=== PATIENT | female | born 1960 | race Caucasian/White ===

== ENCOUNTER 2023-06-04 | Outpatient (REF) | payer OTHER, SELFPAY ==
--- NOTE | ~2023-06-04 | XR_ITS ---
EXAMINATION: XR KNEE, LEFT CLINICAL INFORMATION: Pain. COMPARISON: None available. TECHNIQUE: Frontal, lateral and axial views of the left knee are submitted. FINDINGS: Bony alignment and mineralization are normal. The lateral and medial joint space compartment are well-maintained and show peripheral osteophyte formation. There is irregularity of the articular surface of the medial femoral condyle. The patellofemoral compartment shows mild narrowing with articular surface irregularity and peripheral osteophyte formation. There is no fracture, dislocation or joint effusion. No foreign body is seen. A nonspecific soft tissue calcifications seen in the posterior mid calf. XR/XR knee LT 3V IMPRESSION: There is tricompartment osteoarthritic change of the left knee. This is most pronounced of the medial and patellofemoral compartments, where it is mild to moderate.
== END 2023-06-04 00:01 ==
LOC: HO.HOSX
PROVIDERS: Visit Provider Orthopaedic Surgery
DX: M17.12 Unilateral primary osteoarthritis, left knee (principal); Z79.899 Other long term (current) drug therapy
CPT/HCPCS: 73562

== ENCOUNTER 2023-06-04 15:32 | Outpatient (AMB) | payer OTHER, SELFPAY ==
--- NOTE | 2023-06-04 15:39 | A.OFFVIS_ITS ---
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 The patient does have a history of rheumatoid arthritis. She describes her pain as sharp and severe in nature, 10/10. Her pain has gotten worse over the last few years in spite of continued non operative treatments. She has tried Tylenol and anti-inflammatory medicines which gave her minimal relief. She has done physical therapy for 12 weeks over the last 6 months which aggravated her pain. She has also had multiple injections. The most recent injection gave her minimal relief. Patient has dif ficulty walking even short distances because of her pain. At this point her left knee pain is interfering with her activities of daily living and her ability to sleep well through the night. Allergies codeine Allergy (Verified 06/04/23 15:45) vomitting, hives Sulfa (Sulfonamide Antibiotics) Allergy (Verified 06/04/23 15:45) vomitting, hives Medication List - Last Reconciled 06/05/23 by Stuart Johnson MD clonazepam 0.5 mg PO DAILY PRN escitalopram oxalate 20 mg PO DAILY folic acid 2 mg PO DAILY hydroxychloroquine 200 mg PO DAILY infliximab (Remicade) IV .every 2 months methotrexate sodium 10 mg PO PFSH Surgical History (Updated 06/04/23 @ 15:48 by KASI Robertson) History of toe surgery Social History (Updated 06/04/23 @ 15:49 by KASI Robertson) Patient Tobacco Use Status: Former Tobacco user Current occupation: Teacher Physical Exam Vital Signs: BMI result Body Mass Index 43.0 Const Other: Well-nourished well-developed very friendly female awake alert and oriented x3 in no acute distress Lungs clear to auscultation bilaterally with symmetric expansion Cardiovascular exam regular rate and rhythm Abdominal exam is soft nontender nondistended Extrem Other: Bilateral lower extremity examination shows good capillary refill, no skin lesions noted, normal sensation light touch Left knee examination shows a minimal effusion, palpable crepitus with range of motion, pain with range of motion, range of motion from -3 degrees to 115 degrees, no instability Results Reviewed Results Reviewed: X-rays of the patient's left knee show severe joint space narrowing with grade 4 crpl-[id number] arthritis, subchondral sclerosis, osteophyte formation, no acute bony abnormalities Assessment & Plan Assessment & Plan (1) Arthritis of left knee: Code(s): M17.12 - Unilateral primary osteoarthritis, left knee Plan: Ms. Rodriguez presents with progressively worsening left knee pain due to end- stage degenerative joint disease as well as rheumatoid arthritis. I had a lengthy discussion with the patient regarding the treatment options. At this point she has failed continued non operative treatments. The risks and benefits of left total knee replacement surgery were discussed at length with the patient. We had a discussion regarding implant in bearing options. We had a detailed discussion of the advantages and limitations of the specific implant designs, materials and bearing surfaces. All questions were answered to the patient's satisfaction. The patient wishes to proceed with surgery. Because the patient's symptoms are severe and intractable we will schedule surgery for as soon as possible. Coronavirus precautions will be taken. The patient will follow-up as instructed. Feel free to call me at any time should questions regarding her orthopedic management arise. Thank you very much for asking me to see this very friendly patient. I spent 22 minutes in reviewing the patient's records and imaging studies, seeing the patient and documenting in the medical record. Orders: Orders XR knee LT 3V 06/04/23 M25.562 - Pain in left knee Coding Level of Care Code New Pt Level 2 (68346) Diagnoses Arthritis of left knee M17.12
[2023-06-04 15:49] VITALS: BMI 43.0
== END 2023-06-04 16:27 | disposition home or self-care (01) ==
PROVIDERS: Visit Provider Orthopaedic Surgery
DX: M17.12 Unilateral primary osteoarthritis, left knee (principal)
CPT/HCPCS: 99202

== ENCOUNTER 2023-09-24 08:18 | Outpatient (AMB) | payer OTHER, SELFPAY ==
--- NOTE | 2023-09-24 08:22 | MHC.OFFVIS ---
Intake Intake Visit Reasons: Preop LT TKA 09/28/23 Intake Note: Genevieve a 62 year old female who presents today with complaints of progressively worsening left knee pain. The patient does have a history of rheumatoid arthritis. She describes her pain as sharp and severe in nature, 10/10. Her pain has gotten worse over the last few years in spite of continued non operative treatments. She has tried Tylenol and anti-inflammatory medicines which gave her minimal relief. She has done physical therapy for 12 weeks over the last 6 months which aggravated her pain. She has also had multiple injections. The most recent injection gave her minimal relief. Patient has difficulty walking even short distances because of her pain. At this point her left knee pain is interfering with her activities of daily living and her ability to sleep well through the night. Allergies apple Allergy (Verified 09/24/23 08:23) Rash codeine Allergy (Verified 09/24/23 08:23) vomitting, hives kiwi Allergy (Verified 09/24/23 08:23) Rash oxycodone Allergy (Verified 09/24/23 08:23) Vomiting Sulfa (Sulfonamide Antibiotics) Allergy (Verified 09/24/23 08:23) vomitting, hives Medication List - Last Reconciled 09/24/23 by Stuart Johnson MD clonazepam 0.5 mg PO DAILY PRN escitalopram oxalate 20 mg PO BEDTIME folic acid 2 mg PO BEDTIME hydroxychloroquine 200 mg PO BEDTIME methotrexate sodium 20 mg PO QWEEK PFSH Medical History Arthritis Back pain Hx of migraines Numbness Left bundle branch block Severe obesity Rheumatoid arthritis Hyperlipidemia Anxiety Surgical History Hx of toe surgery H/O laparoscopic adjustable gastric banding Hx of excision of dermoid cyst Hx of cholecystectomy Hx of section H/O colonoscopy History of toe surgery Social History (Updated 09/24/23 @ 08:24 by Mary Baez MA) Are you a primary critical care transport nurse to a significant other at home: No Do you presently have visiting nurse or other home services: No Alcohol intake: current Alcohol intake frequency: holidays/special occasions only Patient Tobacco Use Status: Former Tobacco user Current occupation: Teacher Physical Exam Const Other: Well-nourished well-developed very friendly female awake alert and oriented x3 in no acute distress Lungs - clear to auscultation bilaterally with symmetric expansion Cardiovascular exam - regular rate and rhythm Abdominal exam - soft nontender nondistended Extrem Other: Bilateral lower extremity examination shows good capillary refill, no skin lesions noted, normal sensation light touch Left knee examination shows a minimal effusion, palpable crepitus with range of motion, pain with range of motion, range of motion from -3 degrees to 115 degrees, no instability Results Reviewed Results Reviewed: X-rays of the patient's left knee show end-stage degenerative joint disease with grade 4 hohx-jq-tcsq arthritis, subchondral sclerosis, osteophyte formation, no acute bony abnormalities Assessment & Plan Assessment & Plan (1) Arthritis of left knee: Code(s): M17.12 - Unilateral primary osteoarthritis, left knee Plan Ms. Arauz presents with progressively worsening left knee pain due to end-stage degenerative joint disease. I had a lengthy discussion with the patient regarding the treatment options. At this point she has failed continued non operative treatments. The risks and benefits of left total knee replacement surgery were discussed at length with the patient. The patient wishes to proceed with surgery. patient financial services manager will be consulted following her surgery for home physical therapy and nursing. The patient will follow-up as instructed. Feel free to call me at any time should questions regarding her orthopedic management arise. I spent 22 minutes in reviewing the patient's records and imaging studies, seeing the patient and documenting in the medical record. Coding Level of Care Code Est Pt Level 2 (98316) Diagnoses Arthritis of left knee M17.12
== END 2023-09-24 08:32 | disposition home or self-care (01) ==
PROVIDERS: Visit Provider Orthopaedic Surgery
DX: M17.12 Unilateral primary osteoarthritis, left knee (principal)
CPT/HCPCS: 99212

== ENCOUNTER → 2023-09-24 08:18 | Outpatient (BNVA) | payer OTHER, SELFPAY | PROVIDERS: Visit Provider Orthopaedic Surgery ==

== ENCOUNTER 2023-09-28 06:20 | Inpatient (IN) | payer OTHER, SELFPAY ==
[2023-09-21 12:39] VITALS: BP 142/80; PULSE 71; RESP 20; O2SAT 96; BMI 43.2
--- NOTE | 2023-09-21 13:01 | HO.ANESPROP2 ---
Documented by User: Aissatou Lawrence NP 09/21/23 13:17 HPI - Anesthesia Eval Consult details Narrative: 63yo F for Left Knee Replacement Total No recent illness No CP/SOB within limits of pain. Able to do stairs carrying laundry Medically optimized by [facility] preop clinic Remicade for RA. Last dose 06/2023. No methotraxate for weeks. Sensitive to narcotics (N/V) PMFSH Active Problems Active Problems: All Active Problems (Updated 09/21/23 @ 12:26 by Angie Carpenter RN) Arthritis of left knee (Acute) Left knee pain (Acute) Past Medical History Medical History Arthritis Back pain Hx of migraines Numbness Left bundle branch block Severe obesity Rheumatoid arthritis Hyperlipidemia Anxiety Family History Family history of problems with anesthesia: No Surgical History Surgical History Hx of toe surgery H/O laparoscopic adjustable gastric banding Hx of excision of dermoid cyst Hx of cholecystectomy Hx of section H/O colonoscopy History of toe surgery History of Problems with Anesthesia: No Social History Social History (Updated 09/24/23 @ 08:24 by Mary Baez MA) Are you a primary healthcare advisory services manager to a significant other at home: No Do you presently have visiting nurse or other home services: No Alcohol intake: current Alcohol intake frequency: holidays/special occasions only Patient Tobacco Use Status: Former Tobacco user Use of substances other than those prescribed or required for medical reasons: Yes Substance Use Type Other:: vape Substance Use Frequency: Daily Have you been hit, kicked, punched, or otherwise hurt by someone within the past year? If so, by whom?: No Advance Directives: No Advance Directives Information Provided: No Advance Directives on File: No Recently lost weight without trying: No How much weight loss: 2-13 pounds Eating poorly because of decreased appetite: No Nutrition screen score: 1 Nutrition Risks: No Nutritional Risk Patient : No : No Poor oral hygiene: Yes (one crown on the bottom) Current occupation: Teacher Meds Allergies Allergy/AdvReac Type Severity Reaction Status Date / Time apple Allergy Rash Verified 09/24/23 08:23 codeine Allergy vomitting, Verified 09/24/23 08:23 hives kiwi Allergy Rash Verified 09/24/23 08:23 oxycodone Allergy Vomiting Verified 09/24/23 08:23 Sulfa (Sulfonamide Allergy vomitting, Verified 09/24/23 08:23 Antibiotics) hives Home Medications Medication Instructions Recorded Confirmed Last Taken Type clonazepam 0.5 mg tablet 0.5 mg PO DAILY PRN Anxiety 06/04/23 09/28/23 Unknown History escitalopram oxalate 20 mg tablet 20 mg PO BEDTIME 06/04/23 09/24/23 09/27/23 History folic acid 1 mg tablet 2 mg PO BEDTIME 06/04/23 09/24/23 09/27/23 History hydroxychloroquine 200 mg tablet 200 mg PO BEDTIME 06/04/23 09/24/23 09/27/23 History methotrexate sodium 2.5 mg tablet 20 mg PO QWEEK 06/04/23 09/24/23 Unknown History Exam Height,Weight and Vital Signs: Height 5 ft 2 in Weight 107.048 kg Last Vital Signs Pulse 71 09/21/23 12:39 Resp 20 09/21/23 12:39 BP 142/80 H 09/21/23 12:39 Pulse Ox 96 09/21/23 12:39 O2 Del Method Room Air 09/21/23 12:39 Pertinent Lab Results Pertinent Lab Results: CBC, BMP, and INR 08/2023 from outside facility all WNL Narrative Narrative: EKG 08/2023 NSR @ 61 LBBB (chronic) Airway Mallampati Class: II TM Dist: >3cm Neck ROM: Full Loose/Missing/Broken Teeth: Yes (Molar pulled. Kaser x 1) Heart: RRR Lungs: CTAB Assessment and Plan Assessment Anesthesia Assessment: Anesthesia Plan Discussed and PAT Visit Final Anesthetic Review Family History of Problems with Anesthesia: No History of Problems with Anesthesia: No Documented by User: Bruno Parada MD 09/28/23 08:09 [facility] Past Medical History Medical History Arthritis Back pain Hx of migraines Numbness Left bundle branch block Severe obesity Rheumatoid arthritis Hyperlipidemia Anxiety Surgical History Surgical History Hx of toe surgery H/O laparoscopic adjustable gastric banding Hx of excision of dermoid cyst Hx of cholecystectomy Hx of section H/O colonoscopy History of toe surgery Social History Social History (Updated 09/24/23 @ 08:24 by Mary Baez MA) Are you a primary healthcare advisory services manager to a significant other at home: No Do you presently have visiting nurse or other home services: No Alcohol intake: current Alcohol intake frequency: holidays/special occasions only Patient Tobacco Use Status: Former Tobacco user Use of substances other than those prescribed or required for medical reasons: Yes Substance Use Type Other:: vape Substance Use Frequency: Daily Have you been hit, kicked, punched, or otherwise hurt by someone within the past year? If so, by whom?: No Advance Directives: No Advance Directives Information Provided: No Advance Directives on File: No Recently lost weight without trying: No How much weight loss: 2-13 pounds Eating poorly because of decreased appetite: No Nutrition screen score: 1 Nutrition Risks: No Nutritional Risk Patient : No : No Poor oral hygiene: Yes (one crown on the bottom) Current occupation: Teacher Meds Allergies Allergy/AdvReac Type Severity Reaction Status Date / Time apple Allergy Rash Verified 09/24/23 08:23 codeine Allergy vomitting, Verified 09/24/23 08:23 hives kiwi Allergy Rash Verified 09/24/23 08:23 oxycodone Allergy Vomiting Verified 09/24/23 08:23 Sulfa (Sulfonamide Allergy vomitting, Verified 09/24/23 08:23 Antibiotics) hives Home Medications Medication Instructions Recorded Confirmed Last Taken Type clonazepam 0.5 mg tablet 0.5 mg PO DAILY PRN Anxiety 06/04/23 09/28/23 Unknown History escitalopram oxalate 20 mg tablet 20 mg PO BEDTIME 06/04/23 09/24/23 09/27/23 History folic acid 1 mg tablet 2 mg PO BEDTIME 06/04/23 09/24/23 09/27/23 History hydroxychloroquine 200 mg tablet 200 mg PO BEDTIME 08/24/23 12/14/23 12/17/23 History methotrexate sodium 2.5 mg tablet 20 mg PO QWEEK 06/04/23 09/24/23 Unknown History Assessment and Plan Final Anesthetic Review NPO: Yes ASA Class: III Final Preanesthetic Review: No Changes in Pt Med Stat, Meds/Allgs Chart Reviewed, Consent Obtained/Reviewed and Anes Risks/Benef Reviewed Patient Risk: Intermediate Procedure Risk: Intermediate Anesthetic Plan Anesthetic Plan: Spinal, Regional Block and Agree w/ Assess. and Plan Disposition: Standard PACU
[2023-09-21 16:14] LABS: MRSA Nasal PCR NEGATIVE (Negative); SA Nasal PCR NEGATIVE (Negative)
[2023-09-28] VITALS (11 sets, daily range): BP systolic 102–148; BP diastolic 59–79; PULSE 58–93; RESP 14–18; TEMP 36.1–36.5; O2SAT 93–99; BMI 43.3; BMI 44.6
--- OUTSIDE RECORDS SUMMARY | 2023-09-28 06:24 | XMS_ITS | Continuity of Care Document ---
Author Name Unknown Organization [facility] Address [address] [place] [address]- Care Team Providers Care Track Maintainer Name Role Phone Fam Tolbert MD Primary Care Physician [phone] Encounter [facility] Date(s): 08/05/23 - 09/04/23 [facility] [address] [place], [place] [address] Allergies, Adverse Reactions, Alerts Substance Reaction Severity Status codeine HIVES, ITCHY, VOMITING Activ e sulfa drugs HIVES Active Apples Active Kiwi Active Immunizations Given and Recorded Vaccine Date Status Refusal Reason tetanus/diphtheria/pertussis, acel(Tdap) 1 06/24/23 Given influenza virus vaccine, inactivated 06/18/23 Willy rded influenza virus vaccine, inactivated 06/24/22 Willy rded influenza virus vaccine, inactivated 07/03/21 Willy rded influenza virus vaccine, inactivated 06/26/20 Willy rded SARS-CoV-2 mRNA ([id number]) vax 11/06/21 Recorded SARS-CoV-2 (COVID-19) mRNA BNT-162b2 vac 05/28/21 Recorded SARS-CoV-2 (COVID-19) mRNA BNT-162b2 vac 01/14/21 Recorded SARS-CoV-2 (COVID-19) mRNA BNT-162b2 vac 12/24/20 Recorded 1Result Comment: [facility] [id number] Medications clonazePAM 0.5 mg oral tablet 1 tablet = 0.5 mg, By Mouth, 3 times a day, PRN Anxiety, # 30 tablet, 0 Refills, Maintenance, 06/24/23 15:09:00 EDT, Tablet, [id number], Partial fill upon patient request if the prescription is for a schedule II opioid drug., 163, cm,... Start Date: 06/24/23 Status: Ordered EpiPen 2-Hemal = 0.3 mg, Intramuscular, Once, 0 Refills, Maintenance, 12/15/22 7:49:00 EST, Partial fill upon patient request if the prescription is for a schedule II opioid drug. Start Date: 12/15/22 Status: Ordered folic acid 1 mg oral tablet TAKE 2 TABLETS BY MOUTH DAILY Start Date: 06/24/23 Status: Ordered hydroxychloroquine 200 mg oral tablet TAKE 1 TABLET BY MOUTH ONCE A DAY Start Date: 06/24/23 Status: Ordered Lexapro 20 mg oral tablet 1 tablet = 20 mg, By Mouth, Daily, # 90 tablet, 0 Refills, Maintenance, 08/25/23 16:26:00 EST, Tablet, [facility] #[id number], Partial fill upon patient request if the prescription is for a schedule II opioid drug., 163, cm, 08/06/23 11:57:00 EDT... Start Date: 08/25/23 Status: Ordered methotrexate 7.5 mg/0.15 mL subcutaneous solution Subcutaneous Infusion, 0 Refills, Maintenance, 12/19/19 16:16:00 EDT Start Date: 12/19/19 Status: Ordered REMACAID INFUSION REMACAID INFUSION, Refills 0, Maintenance, 12/19/19 16:16:00 EDT, Supply Start Date: 12/19/19 Status: Ordered Problem List Condition Confirmation Course Effective Dates Status Health St atus Informant Anxiety Confirmed Active Family history of colonic polyps; [facility]; 11/30 colo 5 year recall Confirmed Active Hyperlipidemia; atorvastatin caused leg cramps Confirmed Active Rheumatoid arthritis - [facility] Confirmed Active Severe obesity (BMI 35.0-39.9) with comorbidity Confirmed Active Social History Social History Type Response Smoking Status Former smoker, quit more than 30 days ago; Other: Quit 2007, was 1.5 ppd, started as teenager; entered on: 12/15/22 Sex Patient Care team information Care Team Personnel Name: Fam Tolbert MD Position: [facility] Physician - Primary Care Member Role: PCP Address: Address: [address] [place] [id number] Name: Alessia Broussard RN Position: [facility] SN RN Member Role: Primary Care Nurse Care Team Related Persons Name: KIMBER DAVIS Address: home [address] [place] [id number]
--- OUTSIDE RECORDS SUMMARY | 2023-09-28 06:24 | XMS_ITS | Continuity of Care Document ---
Author Name Unknown Organization [facility] Address [address] [place] [id number]- Care Team Providers Care Floater Operator Name Role Phone Xi PONCE, Corey Lang Primary Care Physician [place] [facility] [facility] [place] - 10/23/[address] [address]- Attending Physician: Emery PONCE, Leopoldo Admitting Physician: Emery PONCE, Leopoldo Referring Physician: Emery PONCE, Leopoldo Allergies, Adverse Reactions, Alerts Substance Reaction Severity Status codeine HIVES, ITCHY, VOMITING Activ e sulfa drugs HIVES Active Medications clonazePAM 0.5 mg oral tablet 1 tablet = 0.5 mg, By Mouth, 3 times a day, 0 Refills, Maintenance, 12/19/19 16:17:00 EDT Start Date: 12/19/19 Status: Ordered Lexapro 10 mg oral tablet 1 tablet = 10 mg, By Mouth, Daily, # 30 tablet, 0 Refills, Maintenance, Tablet Start Date: 08/23/12 Status: Ordered meloxicam 10 mg oral capsule 1 capsule = 10 mg, By Mouth, Daily, # 30 capsule, 0 Refills, Maintenance, 12/19/19 16:15:00 EDT, Capsule Start Date: 12/19/19 Status: Ordered methotrexate 7.5 mg/0.15 mL subcutaneous solution Subcutaneous Infusion, 0 Refills, Maintenance, 12/19/19 16:16:00 EDT Start Date: 12/19/19 Status: Ordered REMACAID INFUSION REMACAID INFUSION, Refills 0, Maintenance, 12/19/19 16:16:00 EDT, Supply Start Date: 12/19/19 Status: Ordered Social History Social History Type Response Smoking Status Former smoker, quit more than 30 days ago entered on: 12/19/19 Sex
--- OUTSIDE RECORDS SUMMARY | 2023-09-28 06:24 | XMS_ITS | Continuity of Care Document ---
Author Name Unknown Organization [facility] Address [address] [place] [address]- Care Team Providers Care Medical Typist Name Role Phone Fam Tolbert MD Primary Care Physician [id number] Date(s): 12/15/22 - 12/22/22 [facility] [address] [place], [place] [address] Attending Physician: Fam Tolbert MD Allergies, Adverse Reactions, Alerts Substance Reaction Severity Status codeine HIVES, ITCHY, VOMITING Activ e sulfa drugs HIVES Active Apples Active Kiwi Active Medications clonazePAM 0.5 mg oral tablet 1 tablet = 0.5 mg, By Mouth, 3 times a day, PRN Anxiety, 0 Refills, Maintenance, 12/19/19 16:17:00 EDT Start Date: 12/19/19 Status: Ordered EpiPen 2-Hemal = 0.3 mg, Intramuscular, Once, 0 Refills, Maintenance, 12/15/22 7:49:00 EST, Partial fill upon patient request if the prescription is for a schedule II opioid drug. Start Date: 12/15/22 Status: Ordered Lexapro 10 mg oral tablet 1 tablet = 10 mg, By Mouth, Daily, # 30 tablet, 0 Refills, Maintenance, Tablet Start Date: 08/23/12 Status: Ordered methotrexate 7.5 mg/0.15 mL subcutaneous solution Subcutaneous Infusion, 0 Refills, Maintenance, 12/19/19 16:16:00 EDT Start Date: 12/19/19 Status: Ordered REMACAID INFUSION REMACAID INFUSION, Refills 0, Maintenance, 12/19/19 16:16:00 EDT, Supply Start Date: 12/19/19 Status: Ordered Problem List Condition Confirmation Course Effective Dates Status Health St atus Informant Anxiety Confirmed Active Hyperlipidemia; atorvastatin caused leg cramps Confirmed Active Rheumatoid arthritis - [facility] Confirmed Active Procedures Procedure Date Related Diagnosis Body Site Status Cholecystectomy Completed CS - section Com pleted Excision of cyst from leg Completed Laparoscopic adjustable gastric banding Completed Vital Signs Most recent to oldest [Reference Range]: 1 Height 163 cm (12/15/22 7:49 AM) Social History Social History Type Response Smoking Status Former smoker, quit more than 30 days ago; Other: Quit 2007, was 1.5 ppd, started as teenager; entered on: 12/15/22 Sex Patient Care team information Care Team Personnel Name: Fam Tolbert MD Position: [facility] Primary Care Physician Member Role: PCP Address: Address: [address] [place] [id number]- Care Team Related Persons Name: KIMBER DAVIS Address: home [address] [place] [id number]
--- OUTSIDE RECORDS SUMMARY | 2023-09-28 06:24 | XMS_ITS | Continuity of Care Document ---
Author Name Unknown Organization [facility] Address [address] [place] [id number]- Care Team Providers Care First Assistant Manager Name Role Phone Xi PONCE, Corey Lang Primary Care Physician [place] [facility] [place] - 06/02/[address] [address]- [facility] Attending Physician: Delfin Machado MD Admitting Physician: Delfin Machado MD Referring Physician: Mekhi Pepper MD Allergies, Adverse Reactions, Alerts Substance Reaction [...]
--- OUTSIDE RECORDS SUMMARY | 2023-09-28 06:24 | XMS_ITS | Continuity of Care Document ---
Author Name Unknown Organization [facility] Address [address] [place] [address]- Care Team Providers Care Cylinder Head Assembler Name Role Phone Tomasz PONCE, Fam Primary Care Physician Encounter [facility] Date(s): 08/12/23 - 09/11/23 [facility] [address] [place], [place] [address] Allergies, Adverse Reactions, Alerts [...] vaccine, inactivated 06/26/20 Willy rded SARS-CoV-2 mRNA (ycsgzau-dvqx-hfbod) vax 11/06/21 Recorded SARS-CoV-2 (COVID-19) mRNA BNT-162b2 vac 05/28/21 Recorded SARS-CoV-2 (COVID-19) mRNA BNT-162b2 vac 01/14/21 Recorded SARS-CoV-2 (COVID-19) mRNA BNT-162b2 vac 12/24/20 Recorded 1Result Comment: [facility] [id number] Medications clonazePAM 0.5 mg oral tablet 1 tablet = 0.5 mg, By Mouth, 3 times a day, PRN Anxiety, # 30 tablet, 0 Refills, Maintenance, 06/24/23 15:09:00 EDT, Tablet, [facility] #[id number], Partial fill upon patient request if the [...] 0 Refills, Maintenance, 08/25/23 16:26:00 EST, Tablet, [facility] #[id number], Partial fill upon patient request if the prescription is for a schedule II opioid drug., 163, cm, 08/06/23 11:57:00 EDT... Start Date: 08/25/23 Status: Ordered methotrexate 2.5 mg oral tablet TAKE 4 TABLETS BY MOUTH IN THE MORNING AND 4 TABLETS BY MOUTH IN THE EVENING ONCE WEEKLY Start Date: 09/07/23 Status: Ordered REMACAID INFUSION REMACAID INFUSION, Refills 0, Maintenance, 12/19/19 16:16:00 EDT, Supply Start Date: 12/19/19 Status: Ordered Problem List Condition Confirmation Course Effective Dates Status Health St atus Informant Anxiety Confirmed Active Family history of colonic polyps; [facility]; 11/30 colo 5 year recall Confirmed Active Hyperlipidemia; atorvastatin caused leg cramps Confirmed Active Rheumatoid [facility] - [facility] Confirmed Active Severe obesity Confirmed Active Social History Social History Type Response Smoking Status Former smoker, quit more than 30 days ago; Other: Quit 2007, was 1.5 ppd, started as teenager; entered on: 12/15/22 Sex Patient Care team information Care Team Personnel Name: Fam Tolbert MD Position: [facility] Physician - Primary Care Member Role: PCP Address: Address: [address] [place] [address]- Name: Alessia Broussard RN Position: [facility] SN RN Member Role: Primary Care Nurse Care Team Related Persons Name: KIMBER DAVIS Address: home [address] [place] [address]
--- OUTSIDE RECORDS SUMMARY | 2023-09-28 06:24 | XMS_ITS | Continuity of Care Document ---
Author Name Unknown Organization [facility] Address [address] [place] [address]- Care Team Providers Care Orientation And Mobility Instructor Name Role Phone Fam Tolbert MD Primary Care Physician [phone] [place] [facility] [place](s): 08/06/23 - 08/13/23 [facility] [address] [place], [place] [address] Attending Physician: Steve Alfaro MD Allergies, Adverse Reactions, Alerts Substance Reaction Severity Status codeine HIVES, ITCHY, VOMITING Activ e Kiwi Active Apples Active sulfa drugs HIVES Active Immunizations Given and Recorded Vaccine Date Status Refusal Reason tetanus/diphtheria/pertussis, acel(Tdap) 1 06/24/23 Given influenza virus vaccine, inactivated 06/18/23 Willy rded influenza virus vaccine, inactivated 06/24/22 Willy rded influenza virus vaccine, inactivated 07/03/21 Willy rded influenza virus vaccine, inactivated 06/26/20 Willy rded SARS-CoV-2 mRNA ([id number]-cczm-vrntz) vax 11/06/21 Recorded SARS-CoV-2 (COVID-19) mRNA BNT-162b2 vac 05/28/21 Recorded SARS-CoV-2 (COVID-19) mRNA BNT-162b2 vac 01/14/21 Recorded SARS-CoV-2 (COVID-19) mRNA BNT-162b2 vac 12/24/20 Recorded 1Result Comment: [facility] [id number] Medications clonazePAM 0.5 mg oral tablet 1 tablet = 0.5 mg, By Mouth, 3 times a day, PRN Anxiety, # 30 tablet, 0 Refills, Maintenance, 06/24/23 15:09:00 EDT, Tablet, [facility] #[id number], Partial fill upon patient request if the [...] mg, By Mouth, Daily, # 90 tablet, 1 Refills, Maintenance, 04/23/23 22:11:00 EDT, Tablet, [facility] #[id number], Partial fill upon patient request if the prescription is for a schedule II opioid drug., 163, cm, 12/15/22 7:49:00 EST,... Start Date: 04/23/23 Status: Ordered methotrexate 7.5 mg/0.15 mL subcutaneous [...] obesity (BMI 35.0-39.9) with comorbidity Confirmed Active Vital Signs Most recent to oldest [Reference Range]: 1 Height 163 cm (08/06/23 11:57 AM) Oxygen Saturation [94-100 %] 93 % *L* (08/06/23 11:57 AM) Pulse Rate [55-90 bpm] 76 bpm (08/06/23 11:57 AM) Blood Pressure [90-138/55-84 mm Hg] 128/ 87mm Hg (08/06/23 11:57 AM) Temperature [96.8-100.4 DegF] 99.2 DegF (08/06/23 11:57 AM) Mode of Delivery (Oxygen) Room air (08/06/23 11:57 AM) Blood pressure sites Arm, left (08/06/23 11:57 AM) Temperature Route Temporal (08/06/23 11:57 AM) Weight Obtained Via Standing scale (08/06/23 11:57 AM) Social History Social History Type Response Smoking Status Former smoker, quit more than 30 days ago; Other: Quit 2007, was 1.5 ppd, started as teenager; entered on: 12/15/22 Sex Note * Angelina Bonds: PERFORM, SIGN, VERIFY Event Display: Patient Education/Instruction Authored Date: [id number] [facility] *[facility] Clinical Summary Name BRENDON DAVIS Age 62 Years 1960 PCP Tomasz PONCE, Fam PCP Visit Date 08/06/2023 11:40:00 Additional Instructions: Scheduled Appointments?? Future Appointments ?No Future Appointments Scheduled Follow-Up Instructions ?? Diagnosis Acute upper respiratory infection, unspecified Medications: Please continue your medications until treatment is completed or stopped by your provider. Discuss any questions related to medications with your provider. Medications to Continue with No Changes These medications were not printed or sent to your pharmacy Clonazepam (clonazePAM 0.5 mg oral tablet) 1 tab(s) Oral 3 times a day as needed Anxiety. Refills: 0. Next Dose: EPINEPHrine (EpiPen 2-Hemal) 0.3 Milligram Intramuscular once. Next Dose: Escitalopram (Lexapro 20 mg oral tablet) 1 tab(s) Oral Daily. Refills: 1. Next Dose: Folic Acid (folic acid 1 mg oral tablet) TAKE 2 TABLETS BY MOUTH DAILY. Next Dose: Hydroxychloroquine (hydroxychloroquine 200 mg oral tablet) TAKE 1 TABLET BY MOUTH ONCE A DAY. Next Dose: Methotrexate (methotrexate 7.5 mg/0.15 mL subcutaneous solution) Subcutaneous Infusion. Next Dose: Miscellaneous Rx (REMACAID INFUSION) Next Dose: Allergy Info:?? Kiwi; Apples; sulfa drugs; codeine Medications Given This Visit Future Orders ?No future orders Vital Signs Height 163 cm Weight BMI Blood Pressure 128 mm Hg/87 mm Hg Temperature 99.2 DegF Pulse Rate 76 bpm Respiratory Rate 02 Sat Mode of Delivery 93 %/Room air You can now view a summary of your hospital visit from the comfort of your home through a free online portal called [employer] (formerly [employer]). [employer] (formerly [employer]) is a website that allows you to securely view your medical information including discharge summary, medications and follow-up visits. ??You can alsosend a secure electronic message to your doctor???s office to request appointments, renew medications or just ask a question. You can enroll at [email or web address] or register during your next office visit. Disclaimer:?? The information provided is of a general nature and is intended to be used in conjunction with the recommendations and advice of your health care practitioner. ??Every effort has been made to ensure that the information provided is accurate and complete at the time it is provided to you however, as your needs change, or, as new ??information becomes available, different or additional instructions may be required. If you have questions, please consult with your primary care provider or pharmacist, as appropriate. ??This information is not intended to serve as substitution for assessment and evaluation by a qualified health care provider. If you do not have a primary care provider, you may find a [facility] provider by calling [facility] Link at [phone]. [facility], in keeping with [facility] guidance, no longer requires face masks for staff, patientsor visitors in most situations. Similar to time spent indoors at other locations, there is the chance that you were exposed to respiratory viruses during your time with us (such as flu or COVID-19).? If you develop symptoms concerning for a viral respiratory infection, please seek testing (and treatment if indicated) from your medical provider or home test kit. For information about the plan of care including goals and instructions for your diagnosis, please see the patient education orders section of this document. Patient Education Materials?? The content of this educational material or handout may have been modified, supplemented, or adapted from its original content and format to support your individualized medical care. Additional Provider Instructions: please get PNEUMO 20 vaccine w hen you are feeling better and ask AUTOMATION QTP TESTER about SHINGRIX Patient Care team information Care Team Personnel Name: Fam Tolbert MD Position: [facility] Physician - Primary Care Member Role: PCP Address: Address: [address] [place] [address]- Name: Alessia Broussard RN Position: [facility] SN RN Member Role: Primary Care Nurse Care Team Related Persons Name: KIMBER DAVIS Address: home [address] [place] [address]
--- OUTSIDE RECORDS SUMMARY | 2023-09-28 06:24 | XMS_ITS | Continuity of Care Document ---
Author Name Unknown Organization [facility] Address [address] [place] [address]- Care Team Providers Care Conditioning Room Worker Name Role Phone Fam Tolbert MD Primary Care Physician [place] [facility] Date(s): 08/06/23 - 09/05/23 [facility] [address] [place], [place] [address] Attending Physician: Admtr, Giovanna Admitting Physician: Admtr, [id number] Referring Physician: Admtr, Ar8 Allergies, Adverse Reactions, Alerts Substance Reaction Severity Status codeine HIVES, ITCHY, VOMITING Activ e Apples Active Kiwi Active sulfa drugs HIVES Active Immunizations Given and Recorded Vaccine Date Status Refusal Reason tetanus/diphtheria/pertussis, acel(Tdap) 1 06/24/23 Given influenza virus vaccine, inactivated 06/18/23 Willy rded influenza virus vaccine, inactivated 06/24/22 Willy rded influenza virus vaccine, inactivated 07/03/21 Willy rded influenza virus vaccine, inactivated 06/26/20 Willy rded SARS-CoV-2 mRNA (kviczed-jxey-yzdko) vax 11/06/21 Recorded SARS-CoV-2 (COVID-19) mRNA BNT-162b2 vac 05/28/21 Recorded SARS-CoV-2 (COVID-19) mRNA BNT-162b2 vac 01/14/21 Recorded SARS-CoV-2 (COVID-19) mRNA BNT-162b2 vac 12/24/20 Recorded 1Result Comment: [facility] [id number] Medications clonazePAM 0.5 mg oral tablet 1 tablet = 0.5 mg, By Mouth, 3 times a day, PRN Anxiety, # 30 tablet, 0 Refills, Maintenance, 06/24/23 15:09:00 EDT, Tablet, [facility] #[id number], Partial fill upon patient request if the [...] 0 Refills, Maintenance, 08/25/23 16:26:00 EST, Tablet, [facility] #[id number], Partial fill upon patient request if the [...] Team Personnel Name: Fam Tolbert MD Position: S Physician - Primary Care Member Role: PCP Address: Address: [address] [place] [address]- Name: Bobo POLANCO, Alessia Position: [facility] SN RN Member Role: Primary Care Nurse Care Team Related Persons Name: KIMBER DAVIS Address: home [address] [place] [address]
--- OUTSIDE RECORDS SUMMARY | 2023-09-28 06:24 | XMS_ITS | Continuity of Care Document ---
Author Name Unknown Organization [facility] Address [address] [place] [address]- Care Team Providers Care House Calls Nurse Name Role Phone Corey Layne MD Primary Care Physician Encounter [facility] Date(s): 09/19/22 - 10/19/22 [facility] [address] [place], [place] [address] Allergies, Adverse Reactions, Alerts [...] 30 days ago entered on: 12/19/19 Sex Patient Care team information Care Team Personnel Name: Corey Layne MD Position: [facility] Outreach Member Role: PCP Address: Address: [address] [place] [address] MD Xi, [place] [address]- Name: Alessia Broussard RN Position: [facility] RN Member Role: Primary Care Nurse Care Team Related Persons Name: KIMBER DAVIS Address: home [address] [place] [address]
--- OUTSIDE RECORDS SUMMARY | 2023-09-28 06:24 | XMS_ITS | Continuity of Care Document ---
Author Name Unknown Organization [facility] Address [address] [place] [address] ve [address] [place] [address]- Care Team Providers Care Shoe Sewing Machine Operator And Tender Name Role Phone Xi PONCE, Corey Lang Primary Care Physician Encounter [facility] Date(s): 12/19/19 - 12/29/[address] [place] [address]- [facility] Attending Physician: Giovanna Gonzalez Admitting Physician: Giovanna Gonzalez Referring Physician: AdmGiovanna wong Allergies, Adverse Reactions, Alerts Substance Reaction Severity [...]
--- OUTSIDE RECORDS SUMMARY | 2023-09-28 06:24 | XMS_ITS | Continuity of Care Document ---
Author Name Unknown Organization [facility] Address [address] [place] [address]- Care Team Providers Care Professional Programmer Analyst Name Role Phone Tomasz PONCE, Fam Primary Care Physician Encounter [facility] Date(s): 09/07/23 - 09/14/23 [facility] [address] [place] [id number] Attending Physician: Daniel Mcgee MD Referring Physician: Stuart Johnson MD Allergies, Adverse Reactions, Alerts Substance Reaction [...] vaccine, inactivated 06/26/20 Willy rded SARS-CoV-2 mRNA (dooqfsc-gxnw-yudzg) vax 11/06/21 Recorded SARS-CoV-2 (COVID-19) mRNA BNT-162b2 vac 05/28/21 Recorded SARS-CoV-2 (COVID-19) mRNA BNT-162b2 vac 01/14/21 Recorded SARS-CoV-2 (COVID-19) mRNA BNT-162b2 vac 12/24/20 Recorded 1Result Comment: [facility] [id number] Medications clonazePAM 0.5 mg oral tablet 1 tablet = 0.5 mg, By Mouth, 3 times a day, PRN Anxiety, # 30 tablet, 0 Refills, Maintenance, 06/24/23 15:09:00 EDT, Tablet, [facility] #[id number], Partial fill upon patient request if the [...] 0 Refills, Maintenance, 08/25/23 16:26:00 EST, Tablet[id number], Partial fill upon patient request if the [...] Center Confirmed Active Severe obesity Confirmed Active Vital Signs Most recent to oldest [Reference Range]: 1 Height 163 cm (09/07/23 3:08 PM) Weight 106.9 kg (09/07/23 3:08 PM) Oxygen Saturation [94-100 %] 98 % (09/07/23 3:08 PM) Pulse Rate [55-90 bpm] 70 bpm (09/07/23 3:08 PM) Body Mass Index [18.5-24.99 kg/m2] 40.23 kg/m2 *>HHI* (09/07/23 3:08 PM) Blood Pressure [90-138/55-84 mm Hg] 134/ 84mm Hg (09/07/23 3:08 PM) Respiratory Rate [16-30 br/min] 16 br/mi n (09/07/23 3:08 PM) Mode of Delivery (Oxygen) Room air (09/07/23 3:08 PM) Blood pressure sites Arm, right (09/07/23 3:08 PM) Weight Obtained Via Standing scale (09/07/23 3:08 PM) Social History Social History Type Response Smoking Status Former smoker, quit more than 30 days ago; Other: Quit 2007, was 1.5 ppd, started as teenager; entered on: 12/15/22 Sex EKG study * Event Display: ECG 12-Lead Authored Date: Please click on pdf link to open report * Event Display: ECG 12-Lead Authored Date: Ventricular Rate: 61 BPM Atrial Rate: 61 BPM P-R Interval: 148 ms QRS Duration: 132 ms Q-T Interval: 482 ms QTC Calculation(Bazett): 485 ms P [place]: 35 degrees R [place]: -12 degrees T [place]: 63 degrees Normal sinus rhythm Left bundle branch block Abnormal ECG No previous ECGs available Confirmed by RIGOBERTO BRAVO MD ([id number]) on 09/08/2023 9:01:02 AM [place]: RIGOBERTO BRAVO MD Patient Care team information Care Team Personnel Name: Fam Tolbert MD Position: [facility] Physician - Primary Care Member Role: PCP Address: Address: [address] [place] [id number] Name: Alessia Broussard RN Position: [facility] SN RN Member Role: Primary Care Nurse Care Team Related Persons Name: KIMBER DAVIS Address: home [address] [place] [address]
--- OUTSIDE RECORDS SUMMARY | 2023-09-28 06:24 | XMS_ITS | Continuity of Care Document ---
Author Name Unknown Organization [facility] Address [address] [place] [address]- Care Team Providers Care Golf Tournament Consultant Name Role Phone Fam Tolbert MD Primary Care Physician [phone] [facility] Date(s): 02/04/23 - 06/04/23 [facility] [address] [place], [place] [address] Attending Physician: Fam Tolbert MD Allergies, Adverse Reactions, Alerts Substance Reaction Severity Status codeine HIVES, ITCHY, VOMITING Activ e sulfa drugs HIVES Active Kiwi Active Apples Active Medications clonazePAM 0.5 mg oral tablet [...] drug. Start Date: 12/15/22 Status: Ordered Lexapro 20 mg oral tablet 1 tablet = 20 mg, By Mouth, Daily, # 90 tablet, 1 Refills, Maintenance, 04/23/23 22:11:00 EDT, Tablet, [facility] #[id number], Partial fill upon patient request if the [...] arthritis - [facility] Confirmed Active Social History Social History Type Response Smoking Status Former smoker, quit more than 30 days ago; Other: Quit 2007, was 1.5 ppd, started as teenager; entered on: 12/15/22 Sex Patient Care team information Care Team Personnel Name: Fam Tolbert MD Position: [facility] Physician - Primary Care Member Role: PCP Address: Address: [address] [place] [address]- Name: Alessia Broussard RN Position: [facility] SN RN Member Role: Primary Care Nurse Care Team Related Persons Name: KIMBER DAVIS Address: [address] [place] [address]
--- OUTSIDE RECORDS SUMMARY | 2023-09-28 06:24 | XMS_ITS | Continuity of Care Document ---
Author Name Unknown Organization [facility] Address [address] [place] [address]- Care Team Providers Care Wire Inspector Name Role Phone Fam Tolbert MD Primary Care Physician [phone] [place] [facility] [place]23 [place] 08/29/23 [facility] [address] [place], [place] [address] Allergies, Adverse Reactions, Alerts Substance Reaction Severity Status codeine HIVES, ITCHY, VOMITING Activ e Kiwi Active sulfa drugs HIVES Active Apples Active Immunizations Given and Recorded Vaccine Date Status Refusal Reason tetanus/diphtheria/pertussis, acel(Tdap) 1 06/24/23 Given influenza virus vaccine, inactivated 06/18/23 Willy rded influenza virus vaccine, inactivated 06/24/22 Willy rded influenza virus vaccine, inactivated 07/03/21 Willy rded influenza virus vaccine, inactivated 06/26/20 Willy rded SARS-CoV-2 mRNA (mlzeonj-mton-mjjxi) vax 11/06/21 Recorded SARS-CoV-2 (COVID-19) mRNA BNT-162b2 vac 05/28/21 Recorded SARS-CoV-2 (COVID-19) mRNA BNT-162b2 vac 01/14/21 Recorded SARS-CoV-2 (COVID-19) mRNA BNT-162b2 vac 12/24/20 Recorded 1Result Comment: [facility] [id number] Medications clonazePAM 0.5 mg oral tablet 1 tablet = 0.5 mg, By Mouth, 3 times a day, PRN Anxiety, # 30 tablet, 0 Refills, Maintenance, 06/24/23 15:09:00 EDT, Tablet, [facility] #[id number], Partial fill upon patient request if the [...] 0 Refills, Maintenance, 08/25/23 16:26:00 EST, Tablet, [facility] #[id number], Partial fill upon patient request if the [...] Team Personnel Name: Fam Tolbert MD Position: [facility] Physician - Primary Care Member Role: PCP Address: Address: [address] [place] [id number] Name: Alessia Broussard RN Position: [facility] SN RN Member Role: Primary Care Nurse Care Team Related Persons Name: KIMBER DAVIS Address: home [address] [place] [id number]
--- OUTSIDE RECORDS SUMMARY | 2023-09-28 06:24 | XMS_ITS | Continuity of Care Document ---
Author Name Unknown Organization [facility] Address [address] [place] [address]- Care Team Providers Care Transmission Mechanic Name Role Phone Fam Tolbert MD Primary Care Physician Encounter [facility] Date(s): 08/07/23 - 09/06/23 [facility] [address] [place], [place] [address] Allergies, Adverse Reactions, Alerts Substance Reaction [...] vaccine, inactivated 06/26/20 Willy rded SARS-CoV-2 mRNA (iovwprv-gggz-fejgn) vax 11/06/21 Recorded SARS-CoV-2 (COVID-19) mRNA BNT-162b2 vac 05/28/21 Recorded SARS-CoV-2 (COVID-19) mRNA BNT-162b2 vac 01/14/21 Recorded SARS-CoV-2 (COVID-19) mRNA BNT-162b2 vac 12/24/20 Recorded 1Result Comment: [facility] [id number] Medications clonazePAM 0.5 mg oral tablet 1 tablet = 0.5 mg, By Mouth, 3 times a day, PRN Anxiety, # 30 tablet, 0 Refills, Maintenance, 06/24/23 15:09:00 EDT, Tablet, [email or web address] #[id number], Partial fill upon patient request if the [...] 0 Refills, Maintenance, 08/25/23 16:26:00 EST, Tablet, [email or web address] #[id number], Partial fill upon patient request if the [...] Team Personnel Name: Fam Tolbert MD Position: [facility] Physician - Primary Care Member Role: PCP Address: Address: [address] [place] [address] Name: Alessia Broussard RN Position: [facility] SN RN Member Role: Primary Care Nurse Care Team Related Persons Name: KIMBER DAVIS Address: home [address] [place] [address]
--- OUTSIDE RECORDS SUMMARY | 2023-09-28 06:24 | XMS_ITS | Continuity of Care Document ---
Author Name Unknown Organization [facility] Address [address] [place] [address]- Care Team Providers Care Oil Refiner Name Role Phone Fam Tolbert MD Primary Care Physician [place] [facility] [place] 06/24/23 - 07/01/23 [facility] [address] [place], [place] [address] Encounter Diagnosis Chronic knee pain(Discharge Diagnosis) - 06/24/23 Family history of colonic polyps; [facility]; 11/30 colo 5 year recall (Discharge Diagnosis) - 06/24/23 Hyperlipidemia; atorvastatin caused leg cramps(Discharge Diagnosis) - 06/24/23 Anxiety(Discharge Diagnosis) - 06/24/23 Severe obesity (BMI 35.0-39.9) with comorbidity(Discharge Diagnosis) - 06/27/23 Attending Physician: Fam Tolbert MD Allergies, Adverse [...] vaccine, inactivated 06/26/20 Willy rded SARS-CoV-2 mRNA ([id number]-sjqn-xtibp) vax 11/06/21 Recorded SARS-CoV-2 (COVID-19) mRNA BNT-162b2 vac 05/28/21 Recorded SARS-CoV-2 (COVID-19) mRNA BNT-162b2 vac 01/14/21 Recorded SARS-CoV-2 (COVID-19) mRNA BNT-162b2 vac 12/24/20 Recorded 1Result Comment: [facility] [id number] Medications clonazePAM 0.5 mg oral tablet 1 tablet = 0.5 mg, By Mouth, 3 times a day, PRN Anxiety, # 30 tablet, 0 Refills, Maintenance, 06/24/23 15:09:00 EDT, Tablet, [facility] #[id number], Partial fill upon patient request if the [...] 1 Refills, Maintenance, 04/23/23 22:11:00 EDT, Tablet, [facility] #[id number], Partial fill upon patient request if the [...] obesity (BMI 35.0-39.9) with comorbidity Confirmed Active Diagnosis Diagnosis Type Effective Dates Health Status Clinical Service Informant Chronic knee pain Discharge Diagnosis 06/24/23 Family history of colonic polyps; [facility]; 11/30 colo 5 year recall Discharge Diagnosis 06/24/23 Hyperlipidemia; atorvastatin caused leg cramps Discharge Diagnosis 06/24/23 Anxiety Discharge Diagnosis 06/24/23 Severe obesity (BMI 35.0-39.9) with comorbidity Discharge Diagnosis 06/27/23 Vital Signs Most recent to oldest [Reference Range]: 1 2 Height 163 cm (06/24/23 3:20 PM) 163 cm (06/24/23 2:58 PM) Weight 105.6 kg (06/24/23 2:58 PM) Oxygen Saturation [94-100 %] 100 % (06/24/23 2:58 PM) Pulse Rate [55-90 bpm] 61 bpm (06/24/23 2:58 PM) Body Mass Index [18.5-24.99 kg/m2] 39.75 kg/m2 *>HHI* (06/24/23 2:58 PM) Blood Pressure [90-138/55-84 mm Hg] 122/ 86mm Hg (06/24/23 3:20 PM) 125/87mm Hg (06/24/23 2:58 PM) Blood pressure sites Arm, right (06/24/23 2:58 PM) Social History Social History Type Response Smoking Status Former smoker, quit more than 30 days ago; Other: Quit 2007, was 1.5 ppd, started as teenager; entered on: 12/15/22 Sex Note * June Obando: PERFORM, SIGN, VERIFY Event Display: Patient Education/Instruction Authored Date: [id number] [facility] *No Edge Adult Ped Clinical Summary Name BRENDON DAVIS Age 62 Years 1960 PCP Tomasz PONCE, Fam PCP Visit Date 06/24/2023 14:48:00 Additional Instructions: Scheduled Appointments?? Future Appointments ?No Future Appointments Scheduled Follow-Up Instructions ?? Diagnosis Pain in unspecified knee; Hyperlipidemia, unspecified; Family history of colonic polyps; Anxiety disorder, unspecified Medications: Please continue your medications until treatment is completed or stopped by your provider. Discuss any questions related to medications with your provider. Medications to Continue Taking That Have Changed [id number], [address], [place] [id number], [phone] - Clonazepam (clonazePAM 0.5 mg oral tablet) 1 tab(s) Oral 3 times a day as needed Anxiety. Refills: 0. Next Dose: Medications to Continue with No Changes These medications were not printed or sent to your pharmacy EPINEPHrine (EpiPen 2-Hemal) 0.3 Milligram Intramuscular once. [...] orders Vital Signs Height 163 cm Weight 105.6 kg BMI 39.75 kg/m2 Blood Pressure 122 mm Hg/86 mm Hg Temperature Pulse Rate 61 bpm Respiratory Rate 02 Sat Mode of Delivery 100 %/ You can now view a summary of your hospital visit from the comfort of your home through a free online portal called Rumgr. Rumgr is a website that allows you to securely view your medical information including discharge summary, medications and follow-up visits. ??You can alsosend a secure electronic message to your doctor???s office to request appointments, renew medications or just ask a question. You can enroll at [email or web address] or register during your next office visit. [...] primary care provider, you may find a [facility] provider by calling [facility] Link at [phone]. [facility], in keeping with [facility] guidance, no longer requires face masks [...] format to support your individualized medical care. * June Obando: PERFORM, SIGN, VERIFY Event Display: Patient Education/Instruction Authored Date: [id number] [facility] *No Edge Adult Ped Clinical Summary Name BRENDON DAVIS Age 62 Years 1960 PCP Tomasz PONCE, Fam PCP Visit Date 06/24/2023 14:48:00 Additional Instructions: Scheduled Appointments?? Future Appointments ?No Future Appointments Scheduled Follow-Up Instructions ?? Diagnosis Pain in unspecified knee; Hyperlipidemia, unspecified; Family history of colonic polyps; Anxiety disorder, unspecified Medications: Please continue your medications until treatment is completed or stopped by your provider. Discuss any questions related to medications with your provider. Medications to Continue Taking That Have Changed [facility] #[id number], [address] [place] [id number], [phone] - Clonazepam (clonazePAM 0.5 mg oral tablet) 1 tab(s) Oral 3 times a day as needed Anxiety. Refills: 0. Next Dose: Medications to Continue with No Changes These medications were not printed or sent to your pharmacy EPINEPHrine (EpiPen 2-Hemal) 0.3 Milligram Intramuscular once. [...] orders Vital Signs Height 163 cm Weight 105.6 kg BMI 39.75 kg/m2 Blood Pressure 122 mm Hg/86 mm Hg Temperature Pulse Rate 61 bpm Respiratory Rate 02 Sat Mode of Delivery 100 %/ You can now view a summary of your hospital visit from the comfort of your home through a free online portal called Rumgr. Rumgr is a website that allows you to securely view your medical information including discharge summary, medications and follow-up visits. ??You can alsosend a secure electronic message to your doctor???s office to request appointments, renew medications or just ask a question. You can enroll at [email or web address] or register during your next office visit. [...] primary care provider, you may find a [facility] provider by calling [facility] Link at [phone]. [facility], in keeping with [facility] guidance, no longer requires face masks [...] format to support your individualized medical care. Patient Care team information Care Team Personnel Name: Fam Tolbert MD Position: [facility] Physician - Primary Care Member Role: PCP Address: Address: [address] [place] [id number] Name: Alessia Broussard RN Position: [facility] SN RN Member Role: Primary Care Nurse Care Team Related Persons Name: KIMBER DAVIS Address: home [address] [place] [address]
--- OUTSIDE RECORDS SUMMARY | 2023-09-28 06:24 | XMS_ITS | Continuity of Care Document ---
Author Name Unknown Organization [facility] Address [address] [place] [address] [address] [place] [address]- Care Team Providers Care Striper Name Role Phone Xi PONCE, Corey Lang Primary Care Physician Encounter [facility] [place] Date(s): 03/06/20 - 04/05/[address] [place] [address]- [facility] Attending Physician: Giovanna Gonzalez Admitting Physician: Giovanna [...]
--- OUTSIDE RECORDS SUMMARY | 2023-09-28 06:24 | XMS_ITS | Continuity of Care Document ---
Author Name Unknown Organization [facility] Address [address] [place] [address]- Care Team Providers Care Diesel Crane Operator Name Role Phone Fam Tolbert MD Primary Care Physician Encounter [facility] [place] Date(s): 07/27/23 - 08/26/23 [facility] [address] [place], [place] [address] Allergies, Adverse Reactions, Alerts [...] vaccine, inactivated 06/26/20 Willy rded SARS-CoV-2 mRNA ([id number]-[id number]) vax 11/06/21 Recorded SARS-CoV-2 (COVID-19) mRNA BNT-162b2 vac 05/28/21 Recorded SARS-CoV-2 (COVID-19) mRNA BNT-162b2 vac 01/14/21 Recorded SARS-CoV-2 (COVID-19) mRNA BNT-162b2 vac 12/24/20 Recorded 1Result Comment: [facility] [id number] Medications clonazePAM 0.5 mg oral tablet 1 tablet = 0.5 mg, By Mouth, 3 times a day, PRN Anxiety, # 30 tablet, 0 Refills, Maintenance, 06/24/23 15:09:00 EDT, Tablet, [email or web address] #[id number], Partial fill upon patient request if the [...] 0 Refills, Maintenance, 08/25/23 16:26:00 EST, Tablet, [email or web address] #[id number], Partial fill upon patient request if the [...] Team Personnel Name: Fam Tolbert MD Position: [facility] Physician - Primary Care Member Role: PCP Address: Address: [address] [place] [id number] Name: Alessia Broussard RN Position: [facility] SN RN Member Role: Primary Care Nurse Care Team Related Persons Name: KIMBER DAVIS Address: home [address] [place] [address]
--- OUTSIDE RECORDS SUMMARY | 2023-09-28 06:24 | XMS_ITS | Continuity of Care Document ---
Author Name Unknown Organization [facility] ter Address [address] [place] [address]- Care Team Providers Care Caisson Worker Name Role Phone Xi PONCE, Corey Lang Primary Care Physician [place] [facility] [place] - 04/05/[address] [address] [facility] Attending Physician: Evelyn Almaraz MD Admitting Physician: Evelyn Almaraz MD Referring Physician: Mekhi Pepper MD Allergies, [...]
--- OUTSIDE RECORDS SUMMARY | 2023-09-28 06:24 | XMS_ITS | Continuity of Care Document ---
Author Name Unknown Organization [facility] ter Address [address] [place] [address]- Care Team Providers Care Segmental Wall Installer Name Role Phone Xi PONCE, Corey Lang Primary Care Physician Encounter [facility] [place] Date(s): 08/21/21 - 12/18/[address] [address] Attending Physician: Emery PONCE, Leopoldo Admitting Physician: [...]
--- OUTSIDE RECORDS SUMMARY | 2023-09-28 06:24 | XMS_ITS | Continuity of Care Document ---
Author Name Unknown Organization [facility] Address [address] [place] [address]- Care Team Providers Care Recreation Engineer Name Role Phone Fam Tolbert MD Primary Care Physician [phone] Encounter [facility] [place] Date(s): 04/23/23 - 05/23/23 [facility] [address] [place], [place] [address] Allergies, Adverse Reactions, Alerts [...] 1 Refills, Maintenance, 04/23/23 22:11:00 EDT, Tablet, [facility] #[id number], Partial fill upon patient request if the [...] Team Personnel Name: Fam Tolbert MD Position: [facility] Physician - Primary Care Member Role: PCP Address: Address: [address] [place] [address]- Care Team Related Persons Name: KIMBER DAVIS Address: home [address] [place] [address]
--- OUTSIDE RECORDS SUMMARY | 2023-09-28 06:24 | XMS_ITS | Continuity of Care Document ---
Author Name Unknown Organization [facility] Address [address] [place] [address] ve [address] [place] [address]- Care Team Providers Care Chairman & Ceo Name Role Phone Corey Layne MD Primary Care Physician [place] [facility] [place] 12/19/19 - 12/26/[address] [place] [address]- [facility] Attending Physician: Mekhi Pepper MD Referring Physician: Corey Layne MD Allergies, Adverse Reactions, Alerts Substance Reaction [...] EDT, Supply Start Date: 12/19/19 Status: Ordered Vital Signs Most recent to oldest [Reference Range]: 1 Height 163 cm (12/19/19 4:09 PM) Weight 110.0 kg (12/19/19 4:09 PM) Pulse Rate [55-90 bpm] 94 bpm *H* (12/19/19 4:09 PM) Body Mass Index [18.5-24.99] 41.4 *>HHI* (12/19/19 4:09 PM) Blood Pressure [90-138/55-84 mm Hg] 134/ 80mm Hg (12/19/19 4:09 PM) Respiratory Rate [16-30 br/min] 20 br/mi n (12/19/19 4:09 PM) Temperature [96.8-100.4 DegF] 98.3 DegF (12/19/19 4:09 PM) Blood pressure sites Arm, left (12/19/19 4:09 PM) Temperature Route Temporal (12/19/19 4:09 PM) Weight Obtained Via Standing scale (12/19/19 4:09 PM) Social History Social History Type Response Smoking Status Former smoker, quit more than 30 days ago entered on: 12/19/19 Sex
--- OUTSIDE RECORDS SUMMARY | 2023-09-28 06:24 | XMS_ITS | Continuity of Care Document ---
Author Name Unknown Organization [facility] Address [address] [place] [address]- Care Team Providers Care Adjunct Writing Instructor Name Role Phone Fam Tolbert MD Primary Care Physician Encounter [facility] [place] Date(s): 08/25/23 - 09/24/23 [facility] [address] [place], [place] [address] Allergies, Adverse Reactions, Alerts Substance Reaction Severity [...] vaccine, inactivated 06/26/20 Willy rded SARS-CoV-2 mRNA (gphxkta-pbjj-ufsiz) vax 11/06/21 Recorded SARS-CoV-2 (COVID-19) mRNA BNT-162b2 vac 05/28/21 Recorded SARS-CoV-2 (COVID-19) mRNA BNT-162b2 vac 01/14/21 Recorded SARS-CoV-2 (COVID-19) mRNA BNT-162b2 vac 12/24/20 Recorded 1Result Comment: [facility] [id number] Medications clonazePAM 0.5 mg oral tablet 1 tablet = 0.5 mg, By Mouth, 3 times a day, PRN Anxiety, # 30 tablet, 0 Refills, Maintenance, 06/24/23 15:09:00 EDT, Tablet, [facility] #[id number], Partial fill upon patient request if the [...] 0 Refills, Maintenance, 08/25/23 16:26:00 EST, Tablet, [facility] #[id number], Partial fill upon patient request if the [...] Team Personnel Name: Fam Tolbert MD Position: [facility] Physician - Primary Care Member Role: PCP Address: Address: [address] [place] [address]- [place] Name: Alessia Broussard RN Position: [facility] SN RN Member Role: Primary Care Nurse Care Team Related Persons Name: KIMBER DAVIS Address: home [address] [place] [address]
[2023-09-28] MEDS: Lactated Ringers 1,000 ML 100 ML IVCONT ×2 (06:56→12:25)
[2023-09-28] MEDS: vancomycin HCL 1,000 MG in 0.9 % Sodium Chloride 250 ML 270 MG IV (07:15)
--- NOTE | 2023-09-28 08:06 | PHA.MEDREC ---
Pharmacy Consult ? Medication Reconciliation Pharmacy has completed the medication reconciliation. Reviewed med rec done by nursing
--- NOTE | 2023-09-28 10:38 | P.BOP_ITS ---
Brief Operative Note Date of Service: 09/28/23 Pre-op diagnosis: Left knee degenerative joint disease Post-op diagnosis: same Procedure: Left total knee arthroplasty Implants: Liang Triathlon cemented posterior stabilized total knee arthroplasty with a femoral component size 4 left, universal tibial component size 4, polyethylene liner size 4 with 9 mm of thickness, a tibial stem measuring 12 mm in diameter by 50 mm in length, a symmetric patellar component size 29 with 8 mm of thickness Surgeon: Stuart Johnson MD Anesthesia: regional and spinal Was an Customs House Broker used for this Procedure?: No Estimated blood loss (mL): 200 Pathology: other (Bony fragments from the left femur, tibia and patella) Condition: stable Disposition: PACU
--- NOTE | 2023-09-28 10:39 | P.OP_ITS ---
Operative Note Operative Note Date of Service: 09/28/23 Narrative: After the patient was identified as Genevieve Arauz and her left knee was initialed by myself the patient was brought to the holding area where a left leg nerve block was performed by the anesthesiologist in routine fashion. The patient was then brought to the operating room where conscious sedation and spinal anesthesia were performed by the anesthesiologist in routine fashion. Because of the patient's rheumatoid arthritis and obesity she was given both IV Ancef and IV vancomycin preoperatively for infection prophylaxis. The patient's left lower extremity was prepped and draped in sterile fashion. A formal time- out was completed. The patient's left knee was placed onto a small bump to produce 30? of knee flexion during exposure. A #10 scalpel blade was used to make a midline incision extending 1 handbreadth proximal and distal to the patella. A second #10 scalpel blade was used to dissect the subcutaneous tissues down to the extensor mechanism. The subcutaneous flaps were maintained as thick as possible. A medial parapatellar arthrotomy was then performed using a #10 scalpel blade. The arthrotomy was begun just medial to the patellar tendon. The arthrotomy was continued 1 cm medial to the patella and then 5 mm into the medial aspect of the quadriceps tendon. The infrapatellar fat pad was partially excised to help with exposure. The soft tissue retinaculum was raised one-half of the way around the medial aspect of the proximal tibia. The patella was everted and the knee was flexed to 90?. There was no injury to the patellar tendon or its insertion onto the tibial tubercle. A drill bit was introduced into the distal aspect of the femur with a starting point 1 cm anterior to the origin of the posterior cruciate ligament. The intramedullary alignment everett was put into place. The distal alignment guide was set for a 5 degree valgus cut. The distal cutting block was put into place and was held with 4 pins. The intramedullary alignment everett was removed. Soft tissues were retracted in the distal femoral cut was made using a sagittal saw. The distal aspect of the femur measured to be a size 4 left component. Two drill holes were placed into the distal aspect of the femur marking 3? of external rotation. The distal cutting block was impacted into place and was held with 2 pins. Soft tissues were retracted and the 4 distal femoral cuts were made using a sagittal saw. Final notching and drilling of the distal aspect of the femur were performed in routine fashion. The trial femoral component was impacted into place. The knee was taken through a full range of motion. The patella tracked well. The patella was everted and the knee was flexed to 90?. The trial component was removed and our attention was directed to the proximal tibia. The medial and lateral menisci were removed using a #10 scalpel blade. A small rim of the medial meniscus was left intact to help prevent injury to the medial collateral ligament. A drill bit was then introduced into the proximal tibia with a starting point midway from medial to lateral and one-third of the way posteriorly. The intramedullary alignment everett was put into place. The proximal tibial cutting guide was placed over the alignment everett in line with the 2nd toe. The guide was held in place using 3 pins. The intramedullary alignment everett was removed. Soft tissues were retracted and the proximal tibial cut was made using a sagittal saw. Inspection of the proximal tibia showed a bony cyst measuring 10 mm x 5 mm x 5 mm along the lateral tibial plateau. Because of the presence of the cyst and the patient's obesity the decision was made to use a tibial stem to help prevent loosening of the tibial component in the future. The proximal tibia measured to be a size 4 component. The tibial tray was put into place with a 9 mm liner. The femoral component was impacted into place. The knee was taken through a full range of motion. There was full flexion and full extension. There was no instability with varus or valgus stress testing with the knee in flexion or extension. The patella tracked well with no medially directed force. The rotation of the tibial tray was marked using electrocautery with the knee in extension. The patella was everted and the knee was flexed to 90?. All trial components were removed. The tibial tray was placed onto the proximal tibia in line with the electrocautery crystal. The tray was held in place using 3 pins. Final broaching and drilling of the proximal tibia were performed in routine fashion. The trial liner and trial femoral component were put into place. The knee was brought into extension and our attention was directed to the patella. The patella measured 25 mm in thickness. The patellar resection guide was set for a 10 mm resection. Soft tissues were retracted and the patella cut was made using a sagittal saw. The remaining patella measured 15 mm in thickness. The undersurface of the patella was measured to be a size 29 symmetric component. Three drill holes were placed into the undersurface of the patella in routine fashion. The trial component was put into place. The knee was taken through a full range of motion. The patella tracked well. The patella was everted and the knee was flexed to 90?. All trial components were removed. The knee was once again brought into extension and placed onto a small bump. The knee joint was irrigated with copious amounts of normal saline solution via pulse lavage while the cement was mixed. The patella was everted and the knee was flexed to 90?. A small amount of cement was placed along the posterior aspects of the tibial and femoral components. Cement was then pressurized into the proximal tibia. The tibial component was impacted into place. Any excess cement was removed. The polyethylene liner was then impacted into place. Cement was then pressurized into the distal aspect of the femur. A small amount of cement was placed into the intramedullary canal to help reduce bleeding. The femoral component was impacted into place. Any excess cement was removed. The knee was then brought into extension. Cement was pressurized into the undersurface of the patella. The patellar component was put into place and was held with a patella clamp. Any excess cement was removed. Once the cement had hardened the patellar clamp was removed. The knee was taken through a full range of motion. There was full flexion and extension. There was no instability with varus or valgus stress testing with the knee in flexion or extension. The patella tracked well with no medially directed force. The knee joint was irrigated with copious amounts of normal saline solution via pulse lavage. Any significant bleeding vessels were coagulated. The patient's left knee was placed onto a small bump. The arthrotomy was closed with #2 Ethibond [id number]-[id number]-[id number] interrupted suture as well as #1 Vicryl [id number]-fv-zumdj interrupted suture. The wound was once again irrigated. The subcutaneous tissues were closed with 0 Vicryl and 2-0 Vicryl interrupted sutures. The skin was closed with skin guanakito. Dry sterile dressing and Mir bandages were placed over the patient's left knee. The patient was awake and alert. The patient was transferred to the recovery room in stable condition.
[2023-09-28] MEDS: HYDROmorphone HCl 0.5 MG/0.5 ML SYRINGE IVPUSH (12:29)
[2023-09-28] MEDS: methocarbamoL 750 MG TABLET PO ×2 (13:59→20:18)
--- NOTE | 2023-09-28 14:53 | PM.EVENT ---
Event Note Date of Service: 09/28/23 Event Note: Patient requires inpatient hospitalization for the following reasons: Morbid obesity Immunocompromised on RA medication ASA use Pain management Physical therapy Time Spent With Patient Time: Total time managing care of this patient today ____ minutes.
--- NOTE | 2023-09-28 15:21 | P.CONIM_ITS ---
History of Present Illness Data of Consult Service Date: 09/28/23 Requesting physician: Stuart Johnson Primary Care Provider: Fam Tolbert MD [facility] Reason for consult: medical management. 62 y/o F pmhx of RA with complaints of progressively worsening left knee pain.came with her pain as sharp and severe pain, Her pain has gotten worse over the last few years in spite of continued non operative treatments. She has tried Tylenol and anti-inflammatory medicines which gave her minimal relief. She has done physical therapy for 12 weeks over the last 6 months which aggravated her pain. She has also had multiple injections. The most recent injection gave her minimal relief. Patient has difficulty ambulating even short distances because of her pain. Denies any new complaint of chest pain or shortness of breath or abdominal pain or fever or chills or nausea or vomiting Denies any cough or weakness or numbness. no new labs knee xray-left knee OA. Review of Systems 2 Review of Systems: as above. Yes all other systems are reviewed and are negative [facility] Medical History Arthritis Back pain Hx of migraines Numbness Left bundle branch block Severe obesity Rheumatoid arthritis Hyperlipidemia Anxiety Surgical History Hx of toe surgery H/O laparoscopic adjustable gastric banding Hx of excision of dermoid cyst Hx of cholecystectomy Hx of section H/O colonoscopy History of toe surgery Social History Household Members: Spouse and Children Housing: House Are you a primary child care sitter to a significant other at home: No Do you presently have visiting nurse or other home services: No Alcohol intake: current Alcohol intake frequency: holidays/special occasions only Patient Tobacco Use Status: Former Tobacco user Smoked in Last 30 Days: No Patient Interested in Nicotine Replacement: No Patient Given Instructions on How to Stop Smoking: No Second Hand Smoke Exposure: No Use of substances other than those prescribed or required for medical reasons: Yes Substance Use Type: Marijuana Substance Use Type Other:: vape Substance Use Frequency: Daily Currently Displaying Signs/Symptoms of Drug Intoxication Withdrawal: No Any prior treatment program specific to substance use: No Have you been hit, kicked, punched, or otherwise hurt by someone within the past year? If so, by whom?: No Do you feel safe in your current relationship?: No Is there a partner from a previous relationship who is making you feel unsafe now?: No Are you made to feel afraid or neglected: No Advance Directives: No Advance Directives Information Provided: No Advance Directives on File: No Do you have thoughts of harming others: None Do you have a plan to hurt others: No Plan Recently lost weight without trying: No How much weight loss: 2-13 pounds Eating poorly because of decreased appetite: No Nutrition screen score: 1 Nutrition Risks: No Nutritional Risk Patient : No : No Poor oral hygiene: No service: No Current occupation: Teacher Meds Allergies Allergy/AdvReac Type Severity Reaction Status Date / Time apple Allergy Rash Verified 09/24/23 08:23 codeine Allergy vomitting, Verified 09/24/23 08:23 hives kiwi Allergy Rash Verified 09/24/23 08:23 oxycodone Allergy Vomiting Verified 09/24/23 08:23 Sulfa (Sulfonamide Allergy vomitting, Verified 09/24/23 08:23 Antibiotics) hives Active Medications: Current Medications Acetaminophen (Acetaminophen 325 Mg Tablet) 650 mg PO Q6H PRN PRN Reason: Pain, Mild (Pain Scale 1-3) Aspirin (Aspirin 325 Mg Tablet) 325 mg PO Q12H [facility] Clonazepam (Clonazepam 0.5 Mg Tablet) 0.5 mg PO DAILY PRN PRN Reason: Anxiety Docusate Sodium (Docusate Sodium 100 Mg Capsule) 100 mg PO BID [facility] Escitalopram Oxalate (Escitalopram Oxalate 20 Mg Tablet) 20 mg PO BEDTIME [facility] Folic Acid (Folic Acid 1 Mg Tablet) 2 mg PO BEDTIME [facility] Gabapentin (Gabapentin 100 Mg Capsule) 100 mg PO DAILY [facility] Hydromorphone HCl (Hydromorphone Hcl 4 Mg Tablet) 4 mg PO Q3H PRN PRN Reason: Pain, Moderate(Pain Scale 4-6) Hydromorphone HCl (Hydromorphone Hcl 2 Mg Tablet) 6 mg PO Q3H PRN PRN Reason: Pain, Severe (Pain Scale 7-10) Hydromorphone HCl (Hydromorphone Hcl 0.5 Mg/0.5 Ml Syringe) 0.25 mg IVPUSH Q4H PRN; Protocol PRN Reason: Pain, Severe (Pain Scale 7-10) Hydromorphone HCl (Hydromorphone Hcl 0.5 Mg/0.5 Ml Syringe) 0.5 mg IVPUSH Q4H PRN; Protocol PRN Reason: Pain, Severe (Pain Scale 7-10) Last Admin: 09/28/23 12:29 Dose: 0.5 mg Hydromorphone HCl (Hydromorphone Hcl 2 Mg Tablet) 2 mg PO Q3H PRN PRN Reason: Pain, Mild (Pain Scale 1-3) Hydroxychloroquine Sulfate (Hydroxychloroquine Sulfate 200 Mg Tablet) 200 mg PO BEDTIME [facility] Lactated Ringer's (Lr) 1,000 mls @ 100 mls/hr IVCONT .Q10H [facility] Last Admin: 09/28/23 12:25 Dose: 100 mls/hr Lactated Ringer's (Lr) 1,000 mls @ 100 mls/hr IVCONT .Q10H [facility] Last Admin: 09/28/23 12:30 Dose: Not Given Cefazolin Sodium/Dextrose (Ancef) 2 gm in 50 mls @ 100 mls/hr IV Q8H [facility] Stop: 09/29/23 15:59 Vancomycin HCl 1,500 mg/ (Sodium Chloride) 500 mls @ 333.333 mls/hr IV POSTOP ONE Stop: 09/28/23 20:44 Methocarbamol (Methocarbamol 750 Mg Tablet) 750 mg PO TID [facility] Last Admin: 09/28/23 13:59 Dose: 750 mg Methotrexate (Methotrexate Sodium 2.5 Mg Tablet) 20 mg PO Sa@0900 [facility] Ondansetron HCl (Ondansetron Hcl 4 Mg/2 Ml Vial) 4 mg IVPUSH Q8H PRN PRN Reason: Nausea and Vomiting Pharmacy Consult (Consult Rx Vancomycin Dosing) 1 each MISCELLANE DAILY PRN PRN Reason: Consult order Sodium Chloride (0.9 % Sodium Chloride Flush 3 Ml Syringe) 3 ml IVFLUSH QSHIFT [facility] Home Medications Medication Instructions Recorded Confirmed Last Taken Type clonazepam 0.5 mg tablet 0.5 mg PO DAILY PRN Anxiety 06/04/23 09/28/23 Unknown History escitalopram oxalate 20 mg tablet 20 mg PO BEDTIME 06/04/23 09/24/23 09/27/23 History folic acid 1 mg tablet 2 mg PO BEDTIME 06/04/23 09/24/23 09/27/23 History hydroxychloroquine 200 mg tablet 200 mg PO BEDTIME 06/04/23 09/24/23 09/27/23 History methotrexate sodium 2.5 mg tablet 20 mg PO SA 06/04/23 09/28/23 09/26/23 History Physical Exam 2 Vital Signs and Narrative: Vital Signs: Last Vital Signs Temp 96.9 F 09/28/23 15:09 Pulse 65 09/28/23 15:09 Resp 16 09/28/23 15:09 BP 136/70 09/28/23 15:09 Pulse Ox 93 09/28/23 15:09 O2 Del Method Room Air 09/28/23 15:09 BMI result Body Mass Index 44.6 Appearance: Alert.? Oriented X3.? ?. cvs: rrr, [id number] , no murmur res: clear to auscultation ,no rhonchii or wheezing abd: no rebound or guarding ,nt, bs present. ext pulses present , no cyanosis ,has left knee soarness. neuro: axo3 , nonfocal. Results Labs 09/29/23 05:36 09/29/23 05:36 Assessment and Plan (1) Arthritis of left knee: Status: Acute Plan 62 y/o F pmhx of RA with complaints of progressively worsening left knee pain.came with her pain as sharp and severe pain s/p Left total knee arthroplasty. Left knee arthritis:s/p Left total knee arthroplasty continue pain control Dilaudid, gabapentin, Tylenol. Bowel regimen-docusate,miralex incentive spirometry. RA:continue home meds anxiety -continue home meds dvt prophylax: on asa as per ortho. Gi prophylax: added omeprazole thanks for letting us participate in patient care ,will sign off .call us for any questions
[2023-09-28] MEDS: ceFAZolin Sodium/Dextrose,Iso 2 GM/50 ML PIGGYBACK IV ×2 (16:05→23:30)
[2023-09-28] MEDS: Aspirin 325 MG TABLET PO (18:00)
[2023-09-28] MEDS: Omeprazole 20 MG CAPSULE.DR PO (18:01)
[2023-09-28] MEDS: vancomycin HCL 1,500 MG in 0.9 % Sodium Chloride 500 ML 333.33 MG IV (18:32)
[2023-09-28] MEDS: Folic Acid 1 MG TABLET 2 MG PO (20:19)
[2023-09-28] MEDS: Escitalopram Oxalate 20 MG TABLET PO (20:19)
[2023-09-28] MEDS: Hydroxychloroquine Sulfate 200 MG TABLET PO (20:19)
[2023-09-28] MEDS: 0.9 % Sodium Chloride Flush 3 ML SYRINGE IVFLUSH (20:21)
[2023-09-28] MEDS: Acetaminophen 325 MG TABLET 650 MG PO (21:53)
[2023-09-28] MEDS: HYDROmorphone HCl 2 MG TABLET 6 MG PO (23:20)
[2023-09-29] VITALS (7 sets, daily range): BP systolic 109–126; BP diastolic 58–64; PULSE 58–76; RESP 16–20; TEMP 36.2–36.5; O2SAT 93–99
[2023-09-29] MEDS: Aspirin 325 MG TABLET PO ×2 (05:42→17:37)
[2023-09-29] MEDS: Omeprazole 20 MG CAPSULE.DR PO (05:42)
[2023-09-29] MEDS: HYDROmorphone HCl 2 MG TABLET 6 MG PO ×3 (05:42→21:42)
[2023-09-29 06:03] LABS: MANUAL DIFF FLAG NO
[2023-09-29 06:19] LABS: Anion Gap 11 (12-20); Blood Urea Nitrogen 13 mg/dL (9-16); Calcium 8.8 mg/dL (8.4-10.2); Carbon Dioxide 26 mmol/L (22-29); Chloride 108 mmol/L (96-108); Creatinine Clr Calc Pharmacy 84.4; Estimated Glomerular Filt Rate > 60; Glucose Fasting 101 mg/dL (60-99); Potassium 4.5 mmol/L (3.3-5.1); Sodium 140 mmol/L (135-145)
[2023-09-29 06:20] LABS: Basophils Percent Auto 0.1 % (0-2); Eosinophils Percent Auto 0.1 % (0-4); Hematocrit 33.1 % (37.0-47.0); Imm Gran Abs Auto 0.02 X10*3/uL (0.00-0.03); Imm Gran Pct Auto 0.3 % (0.0-0.4); Lymphocytes Absolute Auto 2.1 X10*3/uL (1.2-4.9); Lymphocytes Percent Auto 26.4 % (20-40); Mean Corpuscular HGB Conc 33.2 g/dl (31.0-35.0); Mean Corpuscular Hemoglobin 29.8 pg (27.0-33.0); Mean Corpuscular Volume 89.7 fL (80.0-98.0); Mean Platelet Volume 10.9 fL (9.4-12.3); Monocytes Absolute Auto 0.5 X10*3/uL (0.1-1.2); Monocytes Percent Auto 5.8 % (2-11); Neutrophils Absolute Auto 5.3 x10*3/uL (2.0-8.3); Neutrophils Percent Auto 67.3 % (45-73); Platelet Count 220 X10*3/uL (160-400); Red Blood Count 3.69 X10*6/uL (4.20-5.50); Red Cell Distribution Width 12.9 % (11.0-16.0); White Blood Count 7.9 X10*3/uL (4.8-10.8)
[2023-09-29] MEDS: ceFAZolin Sodium/Dextrose,Iso 2 GM/50 ML PIGGYBACK IV (08:50)
[2023-09-29] MEDS: Gabapentin 100 MG CAPSULE PO (08:50)
[2023-09-29] MEDS: Docusate Sodium 100 MG CAPSULE PO ×2 (08:51→21:42)
[2023-09-29] MEDS: methocarbamoL 750 MG TABLET PO ×3 (08:51→21:42)
[2023-09-29] MEDS: 0.9 % Sodium Chloride Flush 3 ML SYRINGE IVFLUSH ×2 (08:54→16:15)
--- NOTE | 2023-09-29 10:24 | MHC.CM.PN ---
Addendum entered by Bouchra Titus 09/29/23 11:43: [facility] has declined the patient for Acute Rehab. They stated that [facility] will not authorize the rehab stay. [facility] has declined the patient. They are not contracted with the insurance. [facility] in contracted with [facility]. They have accepted the case. [facility] has not yet responded to the referral. The patient and her spouse have been updated on the referral outcomes. Original Note: Female 63 S/P LTKA. She lives with her and dtr. At baseline she is independent with all functional mobility. ptients prefernce at discharge is Rehab. [facility] choice [facility] for [facility]. 1st choice for acute rehab is [facility]. Preference for Home care is [facility]. They do not accept [facility]. [facility] has been referred for home care. Patient will transport via BLS if to a facility. Her will transport if dispo is home. Patient has been informed that insurance authorization will be required for facility placement. CM will follow for discharge.
--- NOTE | 2023-09-29 13:30 | P.PNOP_ITS ---
Subjective Subjective Date of Service: 09/29/23 Interval history: POD 1 s/p LT TKA no overnight events Physical Exam Vital Signs: Vital Signs: Last Vital Signs Temp 97.2 F 09/29/23 11:35 Pulse 58 09/29/23 11:35 Resp 20 09/29/23 11:35 BP 109/64 09/29/23 11:35 Pulse Ox 98 09/29/23 11:35 O2 Del Method Room Air 09/29/23 11:35 BMI result Body Mass Index 44.6 Const: General: cooperative, healthy appearing and no acute distress Resp: Effort & Inspection: normal respiratory effort and able to speak in complete sentences Cardio: Rate: regular rate Peripheral pulses: Peripheral pulses 2+ throughout GI: Palpation (GI): Soft to palpation Skin: General skin exam: no rashes or lesions noted Extrem: Other: incision clean dry and intact. [place] intact. No erythema or joint effusion. Calf supple nontender. Neurovascularly intact. Procedures Date of Service Date of Service: 09/29/23 Progress Note: A&P Assessment and plan (1) Status post total left knee replacement: Status: Acute Assessment and Plan: * Continue pain mgmnt * Begin Aspirin for dvt ppx * begin PT for LT TKA * Dispo planning-Pending rehab vs home w vna Need for continued inpatient stay: PT clearance Time Spent With Patient Time: Total time managing care of this patient today ____ minutes. Quality Stroke Does the patient have a stroke diagnosis?: No VTE Prior VTE?: No VTE Risk Level:: Surgical - very high VTE Device Contraindication: N/A - Device Ordered VTE Drug Contraindication: N/A - Med Ordered
--- NOTE | 2023-09-29 13:56 | HO.POSTANES ---
Post Anesthesia Evaluation Post Anesthesia Evaluation Date of Service: 09/29/23 Vital Signs: Vital Signs Temp Pulse Resp BP Pulse Ox O2 Del Method 09/29/23 11:35 97.2 F 58 20 109/64 98 Room Air 09/29/23 11:34 70 111/63 96 09/29/23 07:32 97.7 F 70 20 111/63 96 Room Air 09/29/23 03:21 97.3 F 72 16 111/59 L 93 Room Air Anesthesia: Spinal and Nerve Block Mental Status: Awake Pain Control: Satisfactory Nausea/Vomiting: None Hydration: Adequate Anesthesia-Related Issues: No Anes. Related Issues
[2023-09-29] MEDS: ondansetron HCL 4 MG/2 ML VIAL IVPUSH (14:27)
[2023-09-29] MEDS: HYDROmorphone HCl 2 MG TABLET PO (14:28)
[2023-09-29] MEDS: Acetaminophen 325 MG TABLET 650 MG PO (16:14)
[2023-09-29] MEDS: HYDROmorphone HCl 0.5 MG/0.5 ML SYRINGE IVPUSH (17:38)
[2023-09-29] MEDS: Folic Acid 1 MG TABLET 2 MG PO (21:42)
[2023-09-29] MEDS: Hydroxychloroquine Sulfate 200 MG TABLET PO (21:42)
[2023-09-29] MEDS: Escitalopram Oxalate 20 MG TABLET PO (21:42)
[2023-09-30] VITALS (7 sets, daily range): BP systolic 105–127; BP diastolic 55–72; PULSE 67–85; RESP 16–20; TEMP 36–36.4; O2SAT 94–95
[2023-09-30] MEDS: Acetaminophen 325 MG TABLET 650 MG PO ×2 (00:04→16:41)
[2023-09-30] MEDS: 0.9 % Sodium Chloride Flush 3 ML SYRINGE IVFLUSH ×2 (00:07→08:41)
[2023-09-30] MEDS: HYDROmorphone HCl 2 MG TABLET 6 MG PO (03:26)
[2023-09-30] MEDS: Aspirin 325 MG TABLET PO ×2 (06:00→16:48)
[2023-09-30] MEDS: Omeprazole 20 MG CAPSULE.DR PO (06:00)
[2023-09-30 06:30] LABS: MANUAL DIFF FLAG NO
[2023-09-30 06:38] LABS: Basophils Percent Auto 0.4 % (0-2); Eosinophils Absolute Auto 0.1 X10*3/uL (0.0-0.4); Eosinophils Percent Auto 1.7 % (0-4); Hematocrit 31.3 % (37.0-47.0); Hemoglobin 10.5 g/dl (12.0-16.0); Imm Gran Abs Auto 0.02 X10*3/uL (0.00-0.03); Imm Gran Pct Auto 0.3 % (0.0-0.4); Lymphocytes Percent Auto 27.4 % (20-40); Mean Corpuscular HGB Conc 33.5 g/dl (31.0-35.0); Mean Corpuscular Hemoglobin 30.2 pg (27.0-33.0); Mean Corpuscular Volume 89.9 fL (80.0-98.0); Mean Platelet Volume 10.6 fL (9.4-12.3); Monocytes Absolute Auto 0.7 X10*3/uL (0.1-1.2); Monocytes Percent Auto 9.3 % (2-11); Neutrophils Absolute Auto 4.4 x10*3/uL (2.0-8.3); Neutrophils Percent Auto 60.9 % (45-73); Platelet Count 198 X10*3/uL (160-400); Red Blood Count 3.48 X10*6/uL (4.20-5.50); Red Cell Distribution Width 13.1 % (11.0-16.0); White Blood Count 7.2 X10*3/uL (4.8-10.8)
[2023-09-30 06:54] LABS: Anion Gap 13 (12-20); Blood Urea Nitrogen 12 mg/dL (9-16); Calcium 8.9 mg/dL (8.4-10.2); Carbon Dioxide 23 mmol/L (22-29); Chloride 105 mmol/L (96-108); Creatinine Clr Calc Pharmacy 83.4; Estimated Glomerular Filt Rate > 60; Glucose Fasting 93 mg/dL (60-99); Sodium 137 mmol/L (135-145)
--- NOTE | 2023-09-30 07:42 | P.PNOP_ITS ---
Subjective Subjective Date of Service: 09/30/23 Interval history: POD 2 s/p LT TKA no overnight events Patient resting comfortably in bed Pain is managed No additional complaints Physical Exam Vital Signs: Vital Signs: Last Vital Signs Temp 97 F 09/30/23 07:11 Pulse 85 09/30/23 07:11 Resp 16 09/30/23 07:11 BP 105/72 09/30/23 07:11 Pulse Ox 94 09/30/23 07:11 O2 Del Method Room Air 09/30/23 07:11 BMI result Body Mass Index 44.6 Const: General: cooperative, healthy appearing and no acute distress Resp: Effort & Inspection: normal respiratory effort and able to speak in complete sentences Cardio: Rate: regular rate Peripheral pulses: Peripheral pulses 2+ throughout GI: Palpation (GI): Soft to palpation Skin: General skin exam: no rashes or lesions noted Extrem: Other: Left knee dressing is clean dry and intact. Calf supple nontender. Able to dorsi/plantar flex. Neurovascularly intact. Procedures Date of Service Date of Service: 09/30/23 Progress Note: A&P Assessment and plan (1) Status post total left knee replacement: Status: Acute Assessment and Plan: * Continue pain mgmnt * Continue Aspirin for dvt ppx * Continue PT for LT TKA * Dispo planning-Pending rehab placement Need for continued inpatient stay: PT clearance, pain management, Morbid obesity,l Immunocompromised on RA medication, ASA use Time Spent With Patient Time: Total time managing care of this patient today ____ minutes. Quality Stroke Does the patient have a stroke diagnosis?: No VTE Prior VTE?: No VTE Risk Level:: Surgical - very high VTE Device Contraindication: N/A - Device Ordered VTE Drug Contraindication: N/A - Med Ordered
[2023-09-30] MEDS: methocarbamoL 750 MG TABLET PO ×2 (08:40→14:55)
[2023-09-30] MEDS: Gabapentin 100 MG CAPSULE PO (08:41)
[2023-09-30] MEDS: Docusate Sodium 100 MG CAPSULE PO (08:41)
--- NOTE | 2023-09-30 10:51 | PM.DS ---
DS: Providers Provider Date of Service: 09/30/23 Date of admission: 09/28/23 06:20 Primary care physician: Fam Tolbert MD Consults: 09/28/23 11:32 Consult to Hospitalist Routine Comment: Consulting Provider: Hospitalist Reason For Exam: Routine medical management DS: Diagnosis Discharge Diagnosis (1) Status post total left knee replacement: Status: Acute DS: Summary Hospital Course Hospital Course: The patient underwent a successful left total knee arthroplasty, they were transferred to PACU and then to the floor to recover. During their stay, their vitals were stable, afebrile at 97.0. Labs were unremarkable, H/H 10.5/31.3. POD 1 they were started on Aspirin 325mg po bid for DVT ppx, they also received Physical Therapy services twice a day. Prior to discharge, their dressing was clean dry and intact and the plan was to be discharged home with VNA services. Time Attestation Discharge coordination time: Less than 30 minutes Quality: Safe Use of Opioids Does Pt have an Active Cancer Diagnosis on the Problem List?: No Quality: Stroke Does the patient have a stroke diagnosis?: No Physical Exam Vital Signs: Vital Signs: Last Vital Signs Temp 97 F 09/30/23 07:11 Pulse 85 09/30/23 09:37 Resp 16 09/30/23 07:11 BP 105/72 09/30/23 09:37 Pulse Ox 94 09/30/23 09:37 O2 Del Method Room Air 09/30/23 07:11 BMI result Body Mass Index 44.6 Const: General: cooperative, healthy appearing and no acute distress Resp: Effort & Inspection: normal respiratory effort and able to speak in complete sentences Cardio: Rate: regular rate Peripheral pulses: Peripheral pulses 2+ throughout GI: Palpation (GI): Soft to palpation Skin: General skin exam: no rashes or lesions noted Extrem: Other: Left knee dressing is clean dry and intact. Calf supple nontender. Able to dorsi/plantar flex. Neurovascularly intact. DS: Data Data Completed and Pending Completed studies during hospitalization [Text1]: Pending at discharge 09/28/23 08:27 Surgical [PTH] Routine Labs on day of discharge: Laboratory Results - last 24 hr 09/30/23 06:07 WBC 7.2 RBC 3.48 L Hgb 10.5 L Hct 31.3 L MCV 89.9 MCH 30.2 MCHC 33.5 RDW 13.1 Plt Count 198 MPV 10.6 Immature Gran % (Auto) 0.3 Neut % (Auto) 60.9 Lymph % (Auto) 27.4 Baxter % (Auto) 9.3 Eos % (Auto) 1.7 Baso % (Auto) 0.4 Lymph # (Auto) 2.0 Baxter # (Auto) 0.7 Eos # (Auto) 0.1 Baso # (Auto) 0.0 Abs Immat Gran (auto) 0.02 Absolute Neuts (auto) 4.4 Absolute Nucleated RBC 0.000 Nucleated RBC % (auto) 0.0 Sodium 137 Potassium 4.0 Chloride 105 Carbon Dioxide 23 Anion Gap 13 BUN 12 Creatinine 0.82 Estim Creat Clear Calc 83.4 Estimated GFR > 60 Fasting Glucose 93 Calcium 8.9 Discharge Plan Discharge Anticipated Discharge Date/Time: 09/30/23 15:50 Patient Disposition: Xfer SNF Discharge Diagnosis: s/p LTKA Referrals: Denisha Kevin PA-C [Physician Clinical Lab Technologist] - 10/15/23 12:30 pm Discharge Medications: New acetaminophen 325 mg Tablet 650 mg PO Q6H PRN (Reason: Pain, Mild (Pain Scale 1-3)) 30 Days Qty: 240 0RF methocarbamol 750 mg Tablet 750 mg PO TID 7 Days Qty: 21 0RF aspirin 325 mg Tablet 325 mg PO Q12H 42 Days Qty: 84 0RF docusate sodium 100 mg Capsule 100 mg PO BID 30 Days Qty: 60 0RF gabapentin 100 mg Capsule 100 mg PO DAILY 7 Days Qty: 7 0RF hydromorphone 2 mg Tablet 2 mg PO Q4H PRN (Reason: Pain, Mild (Pain Scale 1-3)) 7 Days Qty: 42 0RF Rx Instructions: Partial Fill upon patient request. Continued [facility]DME[facility] See Rx Instructions .ROUTE .MEDSUPPLY Qty: 1 0RF Rx Instructions: Folding front wheeled walker escitalopram oxalate 20 mg tablet 20 mg PO BEDTIME hydroxychloroquine 200 mg tablet 200 mg PO BEDTIME methotrexate sodium 2.5 mg tablet 20 mg PO SA Patient Comments: usually takes on Thursday clonazepam 0.5 mg tablet 0.5 mg PO DAILY PRN (Reason: Anxiety) folic acid 1 mg tablet 2 mg PO BEDTIME Discharge Orders: Discharge Order (Routine); Ordered 09/30/23 Ordered By: Dave Coyle Diet: Advance to usual diet Activity on Discharge: Use cane or walker Stand Alone Forms: Patient Portal Discharge page Care Plan Goals: restore fxn to the left knee Health Concerns: none Plan of Treatment: Physical Therapy for ROM 0-120, quad strength, gait training. Use walker for ambulation Limit stair climbing, No shower, No tub bath, No driving Continue anticoagulant Keep Aquacel dressing clean, dry and intact. Follow up with orthopedics in 2 weeks Assessment: stable for discharge to rehab Discharge Date/Time: 09/30/23 18:23
--- NOTE | 2023-09-30 12:41 | MHC.CM.PN ---
Addendum entered by Shakila Espinosa RN 09/30/23 16:10: [facility] has denied SNF level of care. Patient agreeable to return home with new VNA. Ortho PA aware and plan to dc today. [facility] has accepted and is aware of dc. to provide transportation. RN aware. Addendum entered by Shakila Espinosa RN 09/30/23 14:28: Correction to below [facility] offered a bed. After note below [facility] and has submitted for auth. [facility] is aware and retracted. Original Note: EMR REVIEWED. PER DEENA ROTH PATIENT IS MEDICALLY CLEARED FOR DC TODAY TO [facility]. NO RESPONSE FROM [facility]. W/ PATIENT'S PERMISSION SENT ADDITIONAL REFERRALS, NO PREFERENCE. [facility] OFFER[facility] A BED PENDING AUTH. PATIENT ACCEPTED. CM WILL CONTINUE TO FOLLOW.
--- NOTE | 2023-09-30 16:33 | W.MHC.F2F ---
Service Date Service Date: 09/30/23 Encounter Date of encounter: 09/30/23 Reasons for Services Signs and symptoms assessed: Weakness, poor balance, poor gait mechanics Reason for physical therapy: home safety and mobility, therapeutic exercises, restore joint function, gait/transfer training, ADL training and energy conservation Reason for occupational therapy: home safety and mobility, therapeutic exercises, restore joint function, gait/transfer training, ADL training and energy conservation Overseeing Care: Mehrdad Allred Homebound: Leaving the home is medically contraindicated at this time without the asist of a device and/or another person due th the listed conditions above and below. Reason homebound: unsteady gait / fall risk, pain with ambulation, pain with transfers, poor balance / fall risk and unable to drive Homebound supporting statement: Pt. is considered home bound due to recent surgery. Unable to drive, poor balance, poor gait mechanics. Certification: Based on the above findings, I certify that this patient is confined to the home and needs intermittent retirement care, physical therapy and/or speech therapy, or continues to need occupational therapy. The patient is under my care, and I have initiated the establishment of the plan of care. The patient will be followed by a physician who will periodically review the plan of care. Time Spent With Patient Time: Total time managing care of this patient today ____ minutes.
== END 2023-09-30 18:23 | disposition skilled nursing facility (03) | DRG 326 ==
LOC: HO.SSSA 06:22 → HO.S3 10:43
PROVIDERS: Admitting Provider Physician Assistant; PCP Internal Medicine; Visit Provider Orthopaedic Surgery
PROC: 0SRD0J9 Replacement of Left Knee Joint with Synthetic Substitute, Cemented, Open Approach (ICD-10-PCS; CPT 27447; principal; 2023-09-28 07:30)
DX: M17.12 Unilateral primary osteoarthritis, left knee (principal); D84.821 Immunodeficiency due to drugs; E66.01 Morbid (severe) obesity due to excess calories; M06.9 Rheumatoid arthritis, unspecified; G89.18 Other acute postprocedural pain; Z68.41 Body mass index [BMI] 40.0-44.9, adult; Z87.891 Personal history of nicotine dependence; Z79.631 Long term (current) use of antimetabolite agent; Z79.899 Other long term (current) drug therapy
CPT/HCPCS: 27447; 36415; 80048; 85025; 86850; 86900; 86901; 87640; 87641; 88305; 88311; 97110; 97116; 97161; 99024; C1713; C1776; J0131; J0665; J0690; J1100; J1170; J1885; J2405; J2704; J2795; J3370; J3371; J7120

== ENCOUNTER → 2023-09-28 06:20 | Outpatient (BNV) | payer OTHER, SELFPAY | PROVIDERS: Admitting Provider Physician Assistant; PCP Internal Medicine; Visit Provider Orthopaedic Surgery | DX: Z96.652 Presence of left artificial knee joint (principal) | CPT/HCPCS: 27447; 99024; 99499; G0180 ==

== ENCOUNTER → 2023-09-28 06:20 | Outpatient (BNV) | payer OTHER, SELFPAY | PROVIDERS: Admitting Provider Physician Assistant; PCP Internal Medicine; Visit Provider Internal Medicine | DX: M17.12 Unilateral primary osteoarthritis, left knee (principal) | CPT/HCPCS: 99221 ==

== ENCOUNTER 2023-10-15 12:25 | Outpatient (AMB) | payer OTHER, SELFPAY ==
--- NOTE | 2023-10-15 12:34 | MHC.OFFVIS ---
Intake Intake Visit Reasons: PO-LT TKA 09/28/23 DR Intake Note: Genevieve is a 63 year old female who presents today for a post op appointment s/p Left TKA 09/28/23. Trev removed steris applied. She reports mild to moderate discomfort in her left knee. She denies any fevers or chills. She does take Dilaudid which gives her fairly good relief. She continues with her home physical therapy. Allergies apple Allergy (Verified 09/24/23 08:23) Rash codeine Allergy (Verified 09/24/23 08:23) vomitting, hives kiwi Allergy (Verified 09/24/23 08:23) Rash oxycodone Allergy (Verified 09/24/23 08:23) Vomiting Sulfa (Sulfonamide Antibiotics) Allergy (Verified 09/24/23 08:23) vomitting, hives Medication List - Last Reconciled 10/15/23 by Stuart Johnson MD acetaminophen 650 mg (2 x 325 mg) PO Q6H PRN 30 days amoxicillin 2,000 mg (4 x 500 mg) PO ONCE aspirin 325 mg PO Q12H 42 days clonazepam 0.5 mg PO DAILY PRN docusate sodium 100 mg PO BID 30 days escitalopram oxalate 20 mg PO BEDTIME folic acid 2 mg PO BEDTIME gabapentin 100 mg PO DAILY 7 days hydromorphone 2 mg PO Q4H PRN 5 days hydroxychloroquine 200 mg PO BEDTIME methocarbamol 750 mg PO TID 7 days methotrexate sodium 20 mg PO SA walker Folding front wheeled walker PFSH Medical History Arthritis Back pain Hx of migraines Numbness Left bundle branch block Severe obesity Rheumatoid arthritis Hyperlipidemia Anxiety Surgical History Hx of toe surgery H/O laparoscopic adjustable gastric banding Hx of excision of dermoid cyst Hx of cholecystectomy Hx of section H/O colonoscopy History of toe surgery Social History Household Members: Spouse and Children Housing: House Are you a primary animal care taker to a significant other at home: No Do you presently have visiting nurse or other home services: No Alcohol intake: current Alcohol intake frequency: holidays/special occasions only Patient Tobacco Use Status: Former Tobacco user Second Hand Smoke Exposure: No Substance Use Type: Marijuana service: No Current occupation: Teacher Physical Exam Extrem Other: Physical examination of the patient's left knee shows that the surgical incision is healing well, no erythema, full active extension and flexion to 115 degrees, her patella tracks well Assessment & Plan Assessment & Plan (1) Status post total left knee replacement: Code(s): Z96.652 - Presence of left artificial knee joint Plan Ms. Arauz is doing very well after undergoing left total knee replacement surgery on 09/28/2023. Her trev were removed and Steri-Strips placed over incision. I did refill her prescription for Dilaudid. I also gave her a prescription for antibiotics which she will take before any dental work in the future. She will continue with her physical therapy exercises. She will contact me prior to her follow-up appointment in 6 weeks should any questions or concerns arise. Feel free to call me at any time should questions regarding her orthopedic management arise. Medications: New amoxicillin Take 4 caps (2,000 mg) 1 hour before any dental work 2,000 mg (4 x 500 mg) PO ONCE 20 caps 0RF Refilled hydromorphone Partial Fill upon patient request. 2 mg PO Q4H PRN 30 tabs 0RF Pain, Mild (Pain Scale 1-3) 5 days Coding Level of Care Code Global (02189) Diagnoses Status post total left knee replacement Z96.652
== END 2023-10-15 13:03 | disposition home or self-care (01) ==
PROVIDERS: PCP Internal Medicine; Visit Provider Orthopaedic Surgery
DX: Z96.652 Presence of left artificial knee joint (principal)
CPT/HCPCS: 99024

== ENCOUNTER → 2023-10-15 12:25 | Outpatient (BNVA) | payer OTHER, SELFPAY | PROVIDERS: PCP Internal Medicine; Visit Provider Orthopaedic Surgery ==

== ENCOUNTER 2023-11-12 12:43 | Outpatient (AMB) | payer OTHER, SELFPAY ==
--- NOTE | 2023-11-12 12:46 | A.OFFVIS_ITS ---
Intake Intake Visit Reasons: PO-LT TKA 09/28/23 DR Intake Note: Genevieve is a 63 year old female who presents for her post operative appointment of her Left TKS 09/28/2023 . Patient reports that she is doing well. She denies fever and chills. She continues with her home stretching program. She has completed formal physical therapy. She takes just Tylenol for her discomfort. Allergies apple Allergy (Verified 11/12/23 12:48) Rash codeine Allergy (Verified 11/12/23 12:48) vomitting, hives kiwi Allergy (Verified 11/12/23 12:48) Rash oxycodone Allergy (Verified 11/12/23 12:48) Vomiting Sulfa (Sulfonamide Antibiotics) Allergy (Verified 11/12/23 12:48) vomitting, hives Medication List - Last Reconciled 11/12/23 by Stuart Johnson MD acetaminophen 650 mg (2 x 325 mg) PO Q6H PRN 30 days amoxicillin 2,000 mg (4 x 500 mg) PO ONCE aspirin 325 mg PO Q12H 42 days clonazepam 0.5 mg PO DAILY PRN docusate sodium 100 mg PO BID 30 days escitalopram oxalate 20 mg PO BEDTIME folic acid 2 mg PO BEDTIME gabapentin 100 mg PO DAILY 7 days hydromorphone (Dilaudid) 2 mg PO Q4H PRN hydroxychloroquine 200 mg PO BEDTIME methocarbamol 750 mg PO TID 7 days methotrexate sodium 20 mg PO SA walker Folding front wheeled walker PFSH Medical History (Updated 10/02/23 @ 00:03 by Bess Pedersen) Arthritis of left knee Arthritis Back pain Hx of migraines Numbness Left bundle branch block Severe obesity Rheumatoid arthritis Hyperlipidemia Anxiety Surgical History (Updated 11/12/23 @ 12:52 by Flavia Basilio CMA) Hx of left knee surgery (~09/28/23) Hx of toe surgery H/O laparoscopic adjustable gastric banding Hx of excision of dermoid cyst Hx of cholecystectomy Hx of section H/O colonoscopy History of toe surgery Social History Household Members: Spouse and Children Housing: House Are you a primary long term care social worker to a significant other at home: No Do you presently have visiting nurse or other home services: No Alcohol intake: current Alcohol intake frequency: holidays/special occasions only Patient Tobacco Use Status: Former Tobacco user Second Hand Smoke Exposure: No Substance Use Type: Marijuana service: No Current occupation: Teacher Physical Exam Extrem Other: Left knee examination shows that the surgical incision is well healed, no erythema, full active extension and flexion to 115 degrees, her patella tracks well Assessment & Plan Assessment & Plan (1) Status post total left knee replacement: Code(s): Z96.652 - Presence of left artificial knee joint Plan Ms. Arauz continues to do very well after undergoing left total knee replacement surgery on 09/28/2023. She will continue with her home stretching program. She does know to take antibiotics before any dental work. She will call me prior to her follow-up appointment in 2 months should any questions or concerns arise. Feel free to call me at any time should questions regarding her orthopedic management arise. Coding Level of Care Code Global (47597) Diagnoses Status post total left knee replacement Z96.652
== END 2023-11-12 13:01 | disposition home or self-care (01) ==
PROVIDERS: PCP Internal Medicine; Visit Provider Orthopaedic Surgery
DX: Z96.652 Presence of left artificial knee joint (principal)
CPT/HCPCS: 99024

== ENCOUNTER → 2023-11-12 12:43 | Outpatient (BNVA) | payer OTHER, SELFPAY | PROVIDERS: PCP Internal Medicine; Visit Provider Orthopaedic Surgery ==

== ENCOUNTER 2024-01-12 11:28 | Outpatient (REF) | payer OTHER, SELFPAY | END 2024-01-12 11:29 | disposition home or self-care (01) | LOC: HO.HOSX 11:28 | PROVIDERS: Visit Provider Orthopaedic Surgery | DX: Z13.89 Encounter for screening for other disorder (principal) ==

== ENCOUNTER 2024-01-26 14:57 | Outpatient (AMB) | payer OTHER, SELFPAY ==
--- NOTE | 2024-01-26 15:00 | MHC.OFFVIS ---
Intake Vital Signs 01/26/24 15:02 Height 5 ft 2 in Weight 235 lb BMI 43.0 Intake Visit Reasons: OV-Left knee follow up Intake Note: Genevieve is a 63 year old female who presents for an follow up after her Left TKA 09/28/2023 Patient reports she is doing well with a little stiffness. She is doing home exercises and states things are going well. She has not take any medicines for discomfort. Allergies apple Allergy (Verified 01/26/24 15:04) Rash codeine Allergy (Verified 01/26/24 15:04) vomitting, hives kiwi Allergy (Verified 01/26/24 15:04) Rash oxycodone Allergy (Verified 01/26/24 15:04) Vomiting Sulfa (Sulfonamide Antibiotics) Allergy (Verified 01/26/24 15:04) vomitting, hives Medication List - Last Reconciled 01/27/24 by Stuart Johnson MD acetaminophen 650 mg (2 x 325 mg) PO Q6H PRN 30 days amoxicillin 2,000 mg (4 x 500 mg) PO ONCE aspirin 325 mg PO Q12H 42 days clonazepam 0.5 mg PO DAILY PRN docusate sodium 100 mg PO BID 30 days escitalopram oxalate 20 mg PO BEDTIME folic acid 2 mg PO BEDTIME gabapentin 100 mg PO DAILY 7 days hydromorphone (Dilaudid) 2 mg PO Q4H PRN hydroxychloroquine 200 mg PO BEDTIME methocarbamol 750 mg PO TID 7 days methotrexate sodium 20 mg PO SA walker Folding front wheeled walker PFSH Medical History Arthritis of left knee Arthritis Back pain Hx of migraines Numbness Left bundle branch block Severe obesity Rheumatoid arthritis Hyperlipidemia Anxiety Surgical History Hx of left knee surgery (~09/28/23) Hx of toe surgery H/O laparoscopic adjustable gastric banding Hx of excision of dermoid cyst Hx of cholecystectomy Hx of section H/O colonoscopy History of toe surgery Social History Household Members: Spouse and Children Housing: House Are you a primary anesthesiologist and critical care to a significant other at home: No Do you presently have visiting nurse or other home services: No Alcohol intake: current Alcohol intake frequency: holidays/special occasions only Patient Tobacco Use Status: Former Tobacco user Second Hand Smoke Exposure: No Substance Use Type: Marijuana service: No Current occupation: Teacher Physical Exam Vital Signs: BMI result Body Mass Index 43.0 Const Other: Well-nourished well-developed very friendly female awake alert and oriented x3 in no acute distress Extrem Other: Bilateral lower extremity examination shows good capillary refill, no skin lesions noted, normal sensation light touch Left knee examination shows that the surgical incision is well healed, no erythema, full active extension and flexion to 120 degrees, her patella tracks well Assessment & Plan Assessment & Plan (1) Left knee pain: Code(s): M25.562 - Pain in left knee Plan Ms. Arauz continues to do well after undergoing left total knee replacement surgery on 09/28/2023. She will continue with her home stretching program. She does know to take antibiotics before any dental work. She will contact me prior to her follow-up appointment in 3 months should any questions or concerns arise. Feel free to call me at any time should questions regarding her orthopedic management arise. I spent 22 minutes in reviewing the patient's records and imaging studies, seeing the patient and documenting in the medical record. Orders: Orders XR knee LT 3V 01/12/24 Z96.652 - Presence of left artificial knee joint Coding Level of Care Code Est Pt Level 2 (90365) Diagnoses Left knee pain M25.562
[2024-01-26 15:02] VITALS: BMI 43.0
== END 2024-01-26 15:28 | disposition home or self-care (01) ==
PROVIDERS: PCP Internal Medicine; Visit Provider Orthopaedic Surgery
DX: M25.562 Pain in left knee (principal)
CPT/HCPCS: 99213

== ENCOUNTER → 2024-01-26 14:57 | Outpatient (BNVA) | payer OTHER, SELFPAY | PROVIDERS: PCP Internal Medicine; Visit Provider Orthopaedic Surgery | DX: Z96.652 Presence of left artificial knee joint (principal) ==

== ENCOUNTER 2025-04-26 09:47 | Outpatient (REF) | payer OTHER, SELFPAY ==
--- OUTSIDE RECORDS SUMMARY | 2025-04-26 11:50 | XMS_ITS ---
Author Name [facility] Organization Unknown History of Medication Use Medication Directions Dispensed Refills Start Date End Date Stat us fluticasone (XCHANCE) 93 MCG/ACT nasal spray 1 spray into each nostril 2 (two) times a day. 01/19/2025 active triamcinolone (NASACORT AQ) 55 MCG/ACT Aerosol nasal spray 2 sprays into each nostril daily. 11/29/2024 active hydroxychloroquine (PLAQUENIL) 200 MG tablet Take 200 mg by mouth. 10/18/2024 active fexofenadine-pseudoephed rine (PARESH-D 24) 180-240 MG per 24 hr tablet Take by mouth. 08/10/2024 active Semaglutide-Weight Management (Wegovy) 0.25 MG/0.5ML Solution Auto-injector Inject 0.25 mg under the skin. 08/10/2024 active escitalopram (LEXAPRO) 20 MG tablet Take 20 mg by mouth. active Allergies Allergen Reaction Severity Comment Documented Date Source Statu s KIWI ANAPHYLAXIS 09/18/2022 [facility] active SULFA ANTIBIOTICS UNKNOWN/PATIENT AND FAMILY UNABLE TO DEFINE 03/20/2017 [facility] active CODEINE RASH/DERMATITIS Other Reaction(s): HIVES, ITCHY, VOMITING 09/23/2015 [facility] active APPLE ANAPHYLAXIS [facility] Problems Problem Status Onset Date Problem Type Date of Resolution Source Severe obesity (BMI 35.0-39.9) with comorbidity active 2024-11-29 ProblemAct [facility] Kidney stone active 2024-11-29 ProblemAct [facility] Hypertrophy of nasal turbinates active EncounterDiagnosisAct [facility] Chronic pansinusitis active EncounterDiagnosisA ct [facility] Elevated serum creatinine active 2024-11-29 ProblemAct [facility] Chronic nasal congestion active 2024-11-29 ProblemAct [facility] Rheumatoid arthritis active 2024-11-29 ProblemAct [facility] Anxiety active 2024-11-29 ProblemAct [facility] Deviated nasal septum active EncounterDiagnosis Act [facility] Hyperlipidemia active 2024-11-29 ProblemAct [facility] [place] Family history of colonic polyps active 2024-11-29 ProblemAct [facility] Immunizations Vaccine Date Source Lot Number Status Influenza, Trivalent (FLUARI X, AFLURIA, FLULAVAL, FLUZONE) Preservative Free IM 08/10/2024 [facility] [id number] completed Tdap 06/24/2023 [facility] [id number] completed Influenza Virus Trivalent Sp lit Vaccine (MDV) IM 06/18/2023 [facility] [id number] completed Influenza Virus Trivalent Sp lit Vaccine (MDV) IM 06/24/2022 [facility] [id number] completed Influenza Virus Trivalent Sp lit Vaccine (MDV) IM 07/03/2021 [facility] [id number] completed Influenza Virus Trivalent Sp lit Vaccine (MDV) IM 06/26/2020 [facility] [id number] completed Encounters Encounter Type Encounter Reason Primary Diagnosis Location Date Ambulatory Hypertrophy of nasal turbinates Hypertrophy of nasal turbinates [facility] 01/19/2025 Ambulatory Nasal Congestion Nasal Congestion [facility] 11/29/2024 Ambulatory [facility] 07/19/2023 Ambulatory [facility] 06/14/2023 Ambulatory [facility] 05/20/2023 Ambulatory [facility] 05/13/2023 Ambulatory [facility] 05/13/2023 Ambulatory [facility] 05/10/2023 Ambulatory [facility] 05/04/2023 Ambulatory [facility] 05/01/2023 Ambulatory [facility] 04/29/2023 Care Team Organization Name Specialty Phone Email Start Date End Da te [facility] Primary Care 12/21/2024 025 [facility] Primary Care 11/29/2024 [facility] 10/18/2024
[2025-04-26 14:02] LABS: Baso%MD 0.6 %; Eos%MD 2.1 %; Hematocrit 41.1 % (37.0-47.0); Hemoglobin 14.2 g/dl (12.0-16.0); IG%MD 0.2 %; Lymph%MD 33.4 %; Mean Corpuscular HGB Conc 34.5 g/dl (31.0-35.0); Mean Corpuscular Hemoglobin 29.7 pg (27.0-33.0); Mean Corpuscular Volume 86.0 fL (80.0-98.0); Mono%MD 5.4 %; NRBC Abs Auto 0.000 X10*3/uL (0.0-0.012); NRBC Pct Auto 0.0 /100WBC (0.0-0.2); Neut%MD 58.3 %; Platelet Count 233 X10*3/uL (160-400); Red Blood Count 4.78 X10*6/uL (4.20-5.50); White Blood Count 4.8 X10*3/uL (4.8-10.8)
[2025-04-26 14:47] LABS: Alanine Aminotransferase 24 U/L (0-31); Aspartate Amino Transferase 35 U/L (5-31); Estimated Glomerular Filt Rate > 60
[2025-04-26 15:16] LABS: Atypical Lymph Absolute Manual 0.1 x10*3/uL; Atypical Lymphs Percent Manual 3 % (0-6); Band Neutrophils Percent 0 % (3-5); Basophils Abs Manual 0.1 X10*3/uL (0.0-0.2); Basophils Percent Manual 2 % (0-2); Lymphocytes Absolute Manual 1.3 X10*3/uL (1.2-4.9); Lymphocytes Percent Manual 27 % (20-40); Monocytes Absolute Manual 0.1 X10*3/uL (0.1-1.2); Monocytes Percent Manual 3 % (2-11); Neutrophils Absolute Manual 3.1 X10*3/uL (2.0-8.3); Neutrophils Percent Manual 65 % (45-73)
[2025-04-26 15:17] LABS: RBC Morphology NORMAL
[2025-04-27 05:01] LABS: HBS Num1 0.30 mIU/mL (0-7.99); HBc Num1 0.06 S/CO (0.00-0.79); HBsAGNum1 0.49 S/CO (0.00-0.99); Hepatitis B Surface Antigen Negative (Negative); ~HepC Num1 0.08 S/CO (0.00-0.79); ~Hepatitis B Surface Antibody NONREACTIVE (Nonreactive); ~Hepatitis C Antibody Nonreactive (Nonreactive)
[2025-04-29 08:24] LABS: TS Negative Control Passed; TS Panel A 0; TS Panel B 0; TS Positive Control Passed; TSpotTB Negative (Negative)
== END 2025-04-26 09:48 | disposition home or self-care (01) ==
LOC: HO.HKASLDS 09:47
PROVIDERS: PCP Internal Medicine; Visit Provider Internal Medicine Rheumatology
DX: M06.09 Rheumatoid arthritis without rheumatoid factor, multiple sites (principal); Z11.59 Encounter for screening for other viral diseases; Z11.1 Encounter for screening for respiratory tuberculosis; Z79.899 Other long term (current) drug therapy
CPT/HCPCS: 36415; 82565; 84450; 84460; 85007; 85027; 85652; 86140; 86481; 86704; 86706; 86803; 87340

== ENCOUNTER 2025-04-26 09:47 | Outpatient (AMB) | payer OTHER, SELFPAY ==
--- NOTE | 2025-04-26 09:51 | MHC.OFFVIS ---
Vital Signs 04/26/25 09:52 Height 5 ft 4 in Weight 238 lb 6 oz BMI 40.9 BP 122/72 Blood Pressure Location Lt brachial Position Sitting Pulse 72 Pulse Source Pulse Oximeter Pulse Oximetry (%) 97 Oxygen Delivery Method Room Air Intake Visit Reasons: RA Intake Note: Patient presents for RA follow up. Accompanied by: Self / Same As Patient Allergies apple Allergy (Verified 04/26/25 09:53) Rash codeine Allergy (Verified 04/26/25 09:53) vomitting, hives kiwi Allergy (Verified 04/26/25 09:53) Rash oxycodone Allergy (Verified 04/26/25 09:53) Vomiting Sulfa (Sulfonamide Antibiotics) Allergy (Verified 04/26/25 09:53) vomitting, hives HPI HPI RA: Details: SHe developed foot pain, swelling, right shoulder pain with limited rom (background of rotator cuff tear). Building Construction Ironworker prescribed prednisone course starting at 15 mg daily, which she tapered off in 2 weeks. She was last on prednisone about 2 weeks ago. She received nystatin from PCP, which was effective. Medrol dose pack was ineffective. Medrol was prescribed by Dr. Rivera. She was started on Simponi Aria and received 2 doses so far 1 in February in another March 28. Hydroxychloroquine was started a year and a half ago. [facility] Medical History Arthritis of left knee Arthritis Back pain Hx of migraines Numbness Left bundle branch block Severe obesity Rheumatoid arthritis Hyperlipidemia Anxiety Surgical History Hx of left knee surgery (~09/28/23) Hx of toe surgery H/O laparoscopic adjustable gastric banding Hx of excision of dermoid cyst Hx of cholecystectomy Hx of section H/O colonoscopy History of toe surgery Social History Household Members: Spouse and Children Housing: House Are you a primary child care associate teacher to a significant other at home: No Do you presently have visiting nurse or other home services: No Alcohol intake: current Alcohol intake frequency: holidays/special occasions only Patient Tobacco Use Status: Former Tobacco user Second Hand Smoke Exposure: No Substance Use Type: Marijuana service: No Current occupation: Teacher Physical Exam Vital Signs: Last Vital Signs Pulse 72 07/16/25 09:52 BP 122/72 04/26/25 09:52 Pulse Ox 97 04/26/25 09:52 Oxygen Delivery Method Room Air 04/26/25 09:52 BMI result Body Mass Index 40.9 Const Other: General: Comfortable CVS: RRR Respiratory: clear to auscultation bilaterally. Good respiratory effort Skin: No lesions seen MSK: Tender to palpate bilateral 2nd and 3rd MCP with synovitis present. She has tenderness of bilateral PIP, elbows, right shoulder and left MTP. Left shoulder range of motion is normal. Right shoulder abduction is 160 degrees with pain and limited full internal rotation with pain. Knee flexion is 90 degrees bilateral. Assessment & Plan Assessment & Plan (1) Rheumatoid arthritis: Comment: Inflammatory arthritis is not controlled. She recently started Simponi Aria. We discussed next steps in treatment with changing Simponi Aria to subcutaneous injection monthly. Rheumatology history: Erosive, anti CCP antibody positive. Initial presentation in 2017 with chronic left knee swelling (WCC 11K, no crystals), which was eventually replaced (TKR). Failed hydroxychloroquine, Enbrel, Inflectra ([id number]), methotrexate ([id number]). Simponi Aria 02/2025-. History of right rotator cuff tendon tears (MRI 2016 reveals full-thickness tear of distal supraspinatus tendon, infraspinatus tendon, subdeltoid bursitis, glenohumeral effusion), failed physical therapy and cortisone injection. Patient is holding off on surgery. History of gastric band surgery. Contraindication to oral NSAIDs. Code(s): M06.9 - Rheumatoid arthritis, unspecified Category: Medical Qualifiers: Rheumatoid arthritis location: multiple sites Rheumatoid factor presence: without rheumatoid factor Qualified Code(s): M06.09 - Rheumatoid arthritis without rheumatoid factor, multiple sites Plan: Baseline labs ordered. After lab results are back, I will start PA process for Simponi subQ She will need nurse visit for Simponi subcutaneous injection. Baseline x-rays to evaluate for disease progression ordered Prednisone course prescribed. We discussed risks and benefits of another course of prednisone including recurrent thrush. Patient has nystatin at home to start if she experiences thrush again. Continue hydroxychloroquine 200 mg daily. Requesting eye exam in the last year for hydroxychloroquine surveillance. [facility] records reviewed. Return to clinic in 3 months Orders: Orders Alanine Aminotransferase Today M06.9 - Rheumatoid arthritis, unspecified C Reactive Protein Today M06.9 - Rheumatoid arthritis, unspecified Complete Blood Count Man Dif Today M06.9 - Rheumatoid arthritis, unspecified Aspartate Amino Transferase Today M06.9 - Rheumatoid arthritis, unspecified Creatinine Today M06.9 - Rheumatoid arthritis, unspecified Erythrocyte Sedimentation Rate Today M06.9 - Rheumatoid arthritis, unspecified T Spot TB Today M06.9 - Rheumatoid arthritis, unspecified Hepatitis B,C Profile Today M06.9 - Rheumatoid arthritis, unspecified XR Foot Luiz 3V Today M06.9 - Rheumatoid arthritis, unspecified XR Hand Bilat min 3v Today M06.9 - Rheumatoid arthritis, unspecified XR Shoulder Luiz min 2V Today M06.9 - Rheumatoid arthritis, unspecified Medications: New prednisone Take 4 tablets daily for 3 days, 3 tablets daily for 3 days, 2 tablets daily for 3 days, 1 tablet daily for 3 days, then stop. Take prednisone with food. 5 mg PO DIRECTED 30 tabs 0RF Coding Level of Care Code Est Pt Level 4 (73198) Complex EM visit Add On G2211 Diagnoses Rheumatoid arthritis of multiple sites with negative rheumatoid factor M06.09 Rheumatoid arthritis location: multiple sites Rheumatoid factor presence: without rheumatoid factor Time Spent (min) 30
[2025-04-26 09:52] VITALS: BP 122/72; PULSE 72; O2SAT 97; BMI 40.9
--- OUTSIDE RECORDS SUMMARY | 2025-04-26 10:22 | XMS_ITS | Clinical Summary ---
Author Organization [facility] Address [address] [place] [address] Care Team Providers Care Embedded Systems Designer Name Role Phone Fam Tolbert MD Primary Care Provider Allergies Active Allergy Reactions Criticality Noted Date Comments Apple Anaphylaxis High 09/18/2022 Codeine Hives,Other (See Comments),Nausea And Vomiting,Rash/Dermatitis High 09/23/2015 Other Reaction(s): HIVES, ITCHY, VOMITING Kiwi Anaphylaxis High 09/18/2022 Sulfa Antibiotics Unknown/Patient and Family Unable to Define Medium 03/20/2017 Medications escitalopram (LEXAPRO) 20 MG tablet Take 20 mg by mouth. Active fexofenadine-pseu doephedrine (PARESH-D 24) 180-240 MG per 24 hr tablet Take by mouth. 4 Active hydroxychloroquin e (PLAQUENIL) 200 MG tablet Take 200 mg by mouth. 5 Active Semaglutide-Weigh t Management (Wegovy) 0.25 MG/0.5ML Solution Auto-injector Inject 0.25 mg under the skin. 4 Active fluticasone (XCHANCE) 93 MCG/ACT nasal sprayIndications: Hypertrophy of nasal turbinates,Chroni c pansinusitis 1 spray into each nostril 2 (two) times a day. 16 mL 1 5 Active atorvastatin (LIPITOR) 20 MG tablet Take 1 tablet by mouth daily. Active celeCOXIB (CeleBREX) 200 MG capsule Take 1 capsule by mouth 2 times a day. Active Active Problems Problem Noted Date Diagnosed Date Anxiety 11/29/2024 Chronic nasal congestion 11/29/2024 Elevated serum creatinine 11/29/2024 Family history of colonic polyps 11/29/2024 Hyperlipidemia 11/29/2024 Kidney stone 11/29/2024 Rheumatoid arthritis 11/29/2024 Severe obesity (BMI 35.0-39.9) with comorbidity 11/29/2024 Immunizations Immunization Administration Dates Next Due Influenza Virus Trivalent Sp lit Vaccine (MDV) IM 06/18/2023,06/24/2022,07/03/2021,2019 Influenza, Trivalent (FLUARI X, AFLURIA, FLULAVAL, FLUZONE) Preservative Free IM 08/10/2024 Tdap 06/24/2023 Social History Tobacco Use Types Packs/Day Years Used Date Smoking Tobacco: Former Cigarettes Passive Smoke Exposure: Past Smokeless Tobacco: Never Tobacco Cessation:Counseling Given: Not Answered Alcohol Use Standard Drinks/Week Comments Yes 0 (1 standard drink = 0.6 oz pur e alcohol) Comments Unknown Sex and Gender Information Value Date Recorded Sex Assigned at Female 11/18/2024 11:42 AM EST Legal Sex Female 10:26 AM EST Gender Identity Female 11/18/2024 11:42 AM EST Sexual Orientation Heterosexual (straight) 11/18 11:42 AM EST Last Filed Vital Signs Vital Sign Reading Time Taken Comments Blood Pressure - - Pulse - - Temperature - - Respiratory Rate - - Oxygen Saturation - - Inhaled Oxygen Concentration - - Weight 104 kg (230 lb) 01/19/2025 9:48 AM EDT Height 160 cm (5' 3 ) 01/19/2025 9:48 AM EDT Body Mass Index 40.74 01/19/2025 9:48 AM EDT Plan of Treatment Health Maintenance Due Date Last Done Comments Hepatitis C Virus Screening 1961 HIV Screening 1974 Pneumococcal Vaccines 50+ (1 of 2 - PCV) 1980 Zoster (Shingles) Vaccine (1 of 2) 1980 Pap Smear (Ages 21-65) 1982 Mammogram 2001 Colonoscopy 2006 RSV Vaccine 60 years and older and Patients (1 - Risk 60-74 years 1-dose series) 2021 COVID-19 Vaccine ( season) 2024 09/04/2023, 11/06/2021, 05/28/2021, Additional history exists Influenza Vaccine 05/12/2025 08/10/2024, , 06/24/2022, Additional history exists DTaP/Tdap/Td Vaccines (2 - Td or Tdap) 06/24/2033 06/24/2023 Hepatitis B Vaccines Aged Out No long er eligible based on patient's age to complete this topic Insurance [facility] Care Teams Embedded Systems Designer Relationship Specialty Start Date End Date Fam Tolbert MD [id number] [place] [address] PCP - General 11/29/24
--- OUTSIDE RECORDS SUMMARY | 2025-04-26 10:22 | XMS_ITS | Clinical Summary ---
Author Organization [facility] Address [address] [place] [address] Care Team Providers Care Sales Order Processor Name Role Phone Fam Tolbert MD Primary Care Provider [phone] Allergies Active Allergy Reactions Criticality Noted Date Comments Apple Anaphylaxis High 09/18/2022 Codeine Other (See Comments) ,Nausea And Vomiting High 09/23/2015 Kiwi Anaphylaxis High 09/18/2022 Other 09/23/2015 Sulfa Antibiotics 03/20/2017 Medications Medication Sig Dispensed Refills Start Date End Date Status clonazePAM (KlonoPIN) 0.5 MG tablet 0 08/23/2015 Active EPINEPHrine (EPIPEN 2-KATHERIN) 0.3 MG/0.3ML SOAJ 0 04/10/2016 Active escitalopram (LEXAPRO) 20 MG tablet 0 04/11/2016 Active folic acid (FOLVITE) tablet 1 mg Take 1 mg by mouth daily. 0 Active methotrexate 1 g injection Inject 7 mg into the vein every 7 days. 0 Active inFLIXimab-dyyb (INFLECTRA IV) Inject into the vein Every two (2) two months. 0 Active Family History Medical History Relation Name Comments Heart disease Father Relation Name Status Comments Father Social History Tobacco Use Types Packs/Day Years Used Date Smoking Tobacco: Former Smokeless Tobacco: Never Alcohol Use Standard Drinks/Week Comments No 0 (1 standard drink = 0.6 oz pur e alcohol) Sex and Gender Information Value Date Recorded Sex Assigned at Not on file Gender Identity Not on file Sexual Orientation Not on file Job Start Date Occupation Industry Not on file Not on file Not on file Last Filed Vital Signs Vital Sign Reading Time Taken Comments Blood Pressure - - Pulse - - Temperature 36.4 C (97.6 F) 03/11/2023 3:11 PM EDT Respiratory Rate 16 03/11/2023 3:11 PM EDT Oxygen Saturation - - Inhaled Oxygen Concentration - - Weight 107 kg (236 lb) 03/11/2023 3:11 PM EDT Height 165.1 cm (5' 5 ) 03/11/2023 3:11 PM EDT Body Mass Index 39.27 03/11/2023 3:11 PM EDT Plan of Treatment Health Maintenance Due Date Last Done Comments Hepatitis C Screening 1961 COVID-19 Vaccine (#1) 02/12/1962 Depression Screening 1973 Preventative Health Evaluation 1979 DTap / Tdap / Td (1 - Tdap) 1980 Cervical Cancer Screening (P ap Smear) 1982 Colon Cancer Screening (Colonoscopy) 2006 Breast Cancer Screening (Mammogram) 2011 Shingrix-Zoster Vaccine (1 of 2) 2011 BMI Counseling 03/11/2024 03/11/2023 Influenza Vaccine (#1) 2025 RSV Adult > 60+ Yrs or Pregn ant (1 - 1-dose 75+ series) 2036 Hepatitis B Vaccines Aged Out No long er eligible based on patient's age to complete this topic Pneumococcal Vaccine Aged Out No long er eligible based on patient's age to complete this topic RSV Ped < 20 months Aged Out No longe r eligible based on patient's age to complete this topic Insurance Payer Benefit Plan / Group Subscriber ID Effective Dates Phone Address [facility] [id number] 2018-Present [address] [facility] [address] [place] [address] HMO Care Teams Sales Order Processor Relationship Specialty Start Date End Date Fam Tolbert MD [address] [place] [id number] PCP - General Internal Medicine 12/17/22
--- OUTSIDE RECORDS SUMMARY | 2025-04-26 10:22 | XMS_ITS | Clinical Summary ---
Author Organization [facility] Address [address] [place] [address] Phone Care Team Providers Care Network Firewall Engineer Name Role Phone Fam Tolbert MD Primary Care Provider [phone] Allergies Active Allergy Reactions Criticality Noted Date Comments Apple 08/26/2024 Codeine Hives,Nausea And Vomiting,Rash High 09/23/2015 Other Reaction(s): HIVES, ITCHY, VOMITING Kiwi Anaphylaxis High 09/18/2022 Sulfa (Sulfonamide Antibiotics) 03/20/2017 Medications Wegovy 0.25 mg/0.5 mL injection pen Inject 0.25 mg under the skin every 7 (seven) days. 08/10/2024 Active predniSONE (DELTASONE) 2.5 mg tablet Take 1 tablet (2.5 mg total) by mouth 1 (one) time each day. 08/24/2024 Active Lexapro 20 mg tablet Take 1 tablet (20 mg total) by mouth 1 (one) time each day. 04/11/2016 Active EPINEPHrine (EPIPEN) 0.3 mg/0.3 mL injection 04/10/2016 Active clonazePAM (KlonoPIN) 0.5 mg tablet Take 1 tablet (0.5 mg total) by mouth. 08/23/2015 Active sodium chloride 0.9 % parenteral solution 250 mL with inFLIXimab-axxq 100 mg recon soln Infuse into a venous catheter. EVERY 2 MONTHS 12/19/2019 Active multivit-min/fol ic acid/vit K1 (MULTI FOR HER 50 PLUS ORAL) Take by mouth. Active fexofenadine-pse udoephedrine (Katy-D 24 Hour) 180-240 mg per 24 hr tablet Take by mouth. 08/10/2024 Active Surgical History Surgery Date Site/Laterality Comments KNEE SURGERY Left CHOLECYSTECTOMY SECTION, LOW TRANSVERSE LAPAROSCOPIC GASTRIC BANDING Medical History Medical History Date Comments Hyperlipidemia Family History Medical History Relation Name Comments No Known Problems Maternal Grandfather CO FIORELLA CANCER No Known Problems Paternal Grandfather CO FIORELLA CANCER Breast cancer Sister dx'd 57 COLON POLYPS Relation Name Status Comments Maternal Grandfather Paternal Grandfather Sister dx'd 57 Alive sister dx age 5 6 Social History Tobacco Use Types Packs/Day Years Used Date Smoking Tobacco: Former Cigarettes Q uit: 10/12/2006 Smokeless Tobacco: Never Alcohol Use Standard Drinks/Week Comments Yes 0 (1 standard drink = 0.6 oz pur e alcohol) Interpersonal Safety Answer Date Record ed Physical Abuse 08/26/2024 Verbal Abuse 08/26/2024 Comments No Sex and Gender Information Value Date Recorded Sex Assigned at Female 08/24/2024 5:32 PM EST Legal Sex Female 12:54 AM EST Gender Identity Female 08/24/2024 5:32 PM EST Sexual Orientation Straight 08/24/2024 5: 32 PM EST Obstetrics History Last Filed Vital Signs Vital Sign Reading Time Taken Comments Blood Pressure 138/99 08/26/2024 3:41 PM EST Pulse 64 08/26/2024 3:41 PM EST Temperature 36.3 C (97.3 F) 08/26/2024 3:21 PM EST Respiratory Rate 22 08/26/2024 3:41 PM EST Oxygen Saturation 99% 08/26/2024 3:41 PM EST Inhaled Oxygen Concentration - - Weight 104 kg (230 lb) 08/26/2024 2:28 PM EST Height 158.5 cm (5' 2.4 ) 08/26/2024 2:28 PM EST Body Mass Index 41.53 08/26/2024 2:28 PM EST Plan of Treatment Health Maintenance Due Date Last Done Comments Pneumococcal Vaccine: 50+ Years (1 of 1 - PCV) 2011 Zoster Vaccines (1 of 2) 2011 RSV Immunization Adult Patients (1 - Risk 60-74 years 1-dose series) 2021 Cholesterol Screening (Lipid Panel) 09/20/2022 Depression Screening 09/20/2022 HIV Screening 09/20/2022 Hepatitis C Screening 09/20/2022 Social Influencers of Health Screening 09/20/2022 Cervical Cancer Screening: Pap Smear 09/24/2023 09/24/2020 COVID-19 Vaccine ( season) 2024 09/04/2023, 11/06/2021, 05/28/2021, Additional history exists Influenza Vaccine (#1) 2025 , 06/18/2023, 06/24/2022, Additional history exists Breast Cancer Screening 03/03/2026 03/03/20 24, 03/03/2024, 01/22/2023, Additional history exists DTaP,Tdap,and Td Vaccines (2 - Td or Tdap) 06/24/2033 06/24/2023 Colorectal Cancer Screening: Colonoscopy 08/26/2034 08/26/2024, 12/02/2018 HIB Vaccines Aged Out No longer eligi ble based on patient's age to complete this topic HPV Vaccines Aged Out No longer eligi ble based on patient's age to complete this topic Hepatitis A Vaccines Aged Out No long er eligible based on patient's age to complete this topic Hepatitis B Vaccines Aged Out No long er eligible based on patient's age to complete this topic IPV Vaccines Aged Out No longer eligi ble based on patient's age to complete this topic MMR Vaccines Aged Out No longer eligi ble based on patient's age to complete this topic Meningococcal ACWY Vaccine Aged Out N o longer eligible based on patient's age to complete this topic Meningococcal B Vaccine Aged Out No l onger eligible based on patient's age to complete this topic RSV Immunization Patients Under 20 months Aged Out No longer eligible based on patient's age to complete this topic Varicella Vaccines Aged Out No longer eligible based on patient's age to complete this topic Medical Devices Implanted Type Area Canary [employer]eder Device Identifier Shelf Expiration Date Model / Serial / Lot Total Left Knee Left: Knee Procedures Procedure Name Priority Date/Time Associated Diagnosis Comments COLONOSCOPY Routine 08/26/2024 3:20 PM EST Family history of colonic polyps SCREENING MAMMOGRAPHY BI 2-VIEW BREAST INC CAD Routine 03/03/2024 4:10 PM EDT Encounter for screening mammogram for malignant neoplasm of breast PAP SMEAR Routine 09/24/2020 from Last 3 Months or Most Recently Relevant to Health Maintenance Results * COLONOSCOPY Anesthesia - MAC; [facility] ENDOSCOPY (08/26/2024 3:20 PM EST) Anatomical Region Laterality Modality Endoscopy 08/26/2024 2:26 PM EST Impressions 08/26/2024 3:21 PM EST - The examined portion of the ileum was normal. - Diverticulosis in the sigmoid colon. - Two 3 mm polyps in the sigmoid colon, removed with a cold snare. Resected and retrieved. - Internal hemorrhoids. Recommendation: - Await pathology results. - Repeat colonoscopy for surveillance based on pathology results. Narrative 08/26/2024 3:21 PM EST [facility] GI Patient Name: Genevieve Arauz Procedure Date: 08/26/2024 2:26 PM Date of : 1960 Age: 64 Gender: Female Note Status: Finalized Attending MD: Olga Fernandes MD, Procedure Date No Time: 08/26/2024 Procedure: Colonoscopy Indications: Colon cancer screening in patient with 1st-degree relative having advanced adenoma of the colon before age 60 Providers: Olga Fernandes MD Referring MD: Fam Tolbert MD Medicines: Propofol per Anesthesia Complications: No immediate complications. Estimated Blood Loss: Estimated blood loss: none. Procedure: Pre-Anesthesia Assessment: - ASA Grade Assessment: III - A patient with severe systemic disease. After I obtained informed consent, the scope was passed under direct vision. Throughout the procedure, the patient's blood pressure, pulse, and oxygen saturations were monitored continuously.The Olympus Pediatric Colonoscope was introduced through the anus and advanced to the terminal ileum. The colonoscopy was performed without difficulty. The patient tolerated the procedure well. The quality of the bowel preparation was excellent. Findings: The perianal and digital rectal examinations were normal. The terminal ileum appeared normal. Multiple small-mouthed diverticula were found in the sigmoid colon. Two sessile polyps were found in the sigmoid colon. The polyps were 3 mm in size. These polyps were removed with a cold snare. Resection and retrieval were complete. Internal hemorrhoids were found during retroflexion. The hemorrhoids were Grade I (internal hemorrhoids that do not prolapse). Procedure Code(s): --- Professional --- 17048, Colonoscopy, flexible; with removal of tumor(s), polyp(s), or other lesion(s) by snare technique Diagnosis Code(s): --- Professional --- Z83.71, Family history of colonic polyps D12.5, Benign neoplasm of sigmoid colon CPT copyright 2020 [employer]. All rights reserved. The codes documented in this report are preliminary and upon overlay plastician review may be revised to meet current compliance requirements. Olga Fernandes MD 08/26/2024 3:21:29 PM This report has been signed electronically.Olga Fernandes MD Number of Addenda: 0 Note Initiated On: 08/26/2024 2:26 PM Scope In: Scope Out: Endoscopy Department at [facility] - [address] [place] [id number] Procedure Note Olga Fernandes MD - 08/26/2024 [facility] GI Patient Name: Genevieve Arauz Procedure Date: 08/26/2024 2:26 PM Date of : 1960 Age: 64 Gender: Female Note Status: Finalized Attending MD: Olga Fernandes MD, Procedure Date No Time: 08/26/2024 Procedure: Colonoscopy Indications: Colon cancer screening in patient with 1st-degree relative having advanced adenoma of the colonbefore age 60 Providers: Olga Fernandes MD Referring MD: Fam Tolbert MD Medicines: Propofol per Anesthesia Complications: No immediate complications. Estimated Blood Loss: Estimated blood loss: none. Procedure: Pre-Anesthesia Assessment: - ASA Grade Assessment: III - A patient with severe systemic disease. After I obtained informed consent, the scope was passed under direct vision. Throughout theprocedure, the patient's blood pressure, pulse, and oxygen saturations were monitored continuously.The Olympus Pediatric Colonoscope was introduced through theanus and advanced to the terminal ileum. The colonoscopy was performed without difficulty. The patient tolerated the procedure well. The quality of thebowel preparation was excellent. Findings: The perianal and digital rectal examinations were normal. The terminal ileum appeared normal. Multiple small-mouthed diverticula were found inthe sigmoid colon. Two sessile polyps were found in the sigmoid colon. The polyps were 3 mm in size. These polyps were removed with a cold snare. Resection and retrieval were complete. Internal hemorrhoids were found duringretroflexion. The hemorrhoids were Grade I (internal hemorrhoids that do not prolapse). Procedure Code(s): --- Professional --- 71223, Colonoscopy, flexible; with removal of tumor(s), polyp(s), or other lesion(s) by snare technique Diagnosis Code(s): --- Professional --- Z83.71, Family history of colonic polyps D12.5, Benign neoplasm of sigmoid colon CPT copyright 2020 [employer]. All rights reserved. The codes documented in this report are preliminary and upon overlay plastician reviewmay be revised to meet current compliance requirements. Olga Fernandes MD 08/26/2024 3:21:29 PM This report has been signed electronically.Olga Fernandes MD Number of Addenda: 0 Note Initiated On: 08/26/2024 2:26 PM Scope In: Scope Out: Endoscopy Department at [facility] - [address] [place] [id number] IMPRESSION: - The examined portion of the ileum was normal. - Diverticulosis in the sigmoid colon. - Two 3 mm polyps in the sigmoid colon, removedwith a cold snare. Resected and retrieved. - Internal hemorrhoids. Recommendation: - Await pathology results. - Repeat colonoscopy for surveillance based on pathology results. us Olga Fernandes MD GI~PROCEDURE ORDERABLES Final Result * SCREENING MAMMOGRAPHY BI 2-VIEW BREAST INC CAD (03/03/2024 4:10 PM EDT) Anatomical Region Laterality Modality Radiographic Mago ging 01/22/2023 12:5 9 PM EDT Narrative 03/04/2024 3:44 PM EDT This is a summary report. The complete report is available in the patient's medical record. If you cannot access the medical record, please contact the sending organization for a detailed fax or copy. Full field digital screening 2D C views and tomosynthesis mammography, reviewed with CAD and compared to previous. The breasts are composed of fatty and fibroglandular tissue. No suspicious mass, architectural distortion or suspicious calcifications are identified. IMPRESSION: : No mammographic evidence of malignancy. BIRADS 1-Negative; N. 5 year breast cancer risk assessment 3.1 % Lifetime breast cancer risk assessment 13.5 % Breast cancer risk category Low (<15%) Procedure Note Candis Kaye MD - 05/30/2024 This is a summary report. The complete report is available in thepatient's medical record. If you cannot access the medical record, pleasecontact the sending organization for a detailed fax or copy. Full field digital screening 2D C views and tomosynthesis mammography,reviewed with CAD and compared to previous. The breasts are composed offatty and fibroglandular tissue. No suspicious mass, architecturaldistortion or suspicious calcifications are identified. IMPRESSION: : No mammographic evidence of malignancy. BIRADS 1-Negative; N. 5 year breast cancer risk assessment 3.1 % Lifetime breast cancer risk assessment 13.5 % Breast cancer risk category Low (<15%) Kinjal Mayorga DO IMG XR PROCEDURES Final Result * Pap smear (09/24/2020) 09/24/2020 Narrative HISTORICAL TESTING LAB RESULTING AGENCY - 09/26/2020 1:55 PM EST [id number] THINPREP PAP, IMAGED: NEGATIVE FOR SQUAMOUS INTRAEPITHELIAL LESION AND MALIGNANCY . ATROPHY. JOELLEN NAVAS(ASCP) (CASE ELECTRONICALLY SIGNED 09 26 2020) RESULT OF APTIMA HIGH RISK HPV ASSAY: HIGH RISK HPV: NEGATIVE (SEROTYPES 16,18,31,33,35,39,45,51,52,56,58,59,66,68) COMPLETED ON 2020-09-26 ADEQUACY: SATISFACTORY . SOURCE: THINPREP PAP HPV ANY DX: REFLEX 16 AND 18, CERVICAL, IMAGED CLINICAL INFORMATION: HPV ANY DIAGNOSIS. MENOPAUSE, PAP HX NEG, Z12.4 Kinjal Mayorga DO LAB CYTOLOGY ORDERABLES Final Result HISTORICAL TESTING LAB RESULTING AGENCY from Last 3 Months or Most Recently Relevant to Health Maintenance Insurance [facility] [address] [place] [address] Care Teams Network Firewall Engineer Relationship Specialty Start Date End Date Fam Tolbert MD [id number] [place] [address] PCP - General Internal Medicine 08/24/24
--- OUTSIDE RECORDS SUMMARY | 2025-04-26 10:22 | XMS_ITS | Patient Health Record ---
Author Organization [facility] Address [address] [place] [address] Care Team Providers Care Seafood Clerk Name Role Phone Corey Layne Primary Care Provider BARRETT Rodriguez Unavailable [phone] Allergies Allergen (clinical drug ingredient) Drug/Non Drug Allergy documented on EMR Reaction Allergy Type Onset Date Status apple allergenic extract Apple (Diagnostic) Unknown Drug A llergy Active codeine Codeine Unknown Drug Allergy Active Substance with sulfonamide structure and antibacterial mechanism of action (substance) Sulfa Antibiotics Unknown Drug Allergy Active Kiwi Unknown Allergy Active Reason For Referral No Information Medications Medication SIG (Take, Route, Frequency, Duration) Notes Start Date End Date Status Folic Acid 1 MG 1 tablet Orally Once a day Not-Taking predniSONE 2.5 MG 1 tablet Orally Once a day for 90 days 12/28/2024 Active predniSONE 5 MG 1 tablet with food Orally Once a day for 90 days 04/12/2025 Active CeleBREX 200 MG 1 capsule with food Orally Once a day Not-Taking Atorvastatin Calcium 20 MG 1 tablet Orally Once a day Not-Taking predniSONE 5 MG 1 tablet Orally Once a day for 90 days 09/16/2024 Active Escitalopram Oxalate 20 MG 1 tablet Orally Once a day Active Tylenol PRN Active predniSONE 2.5 MG 1 tablet Orally Once a day for 90 days 08/24/2024 Active Motrin PRN Not-Taking clonazePAM 0.5 MG 1 tablet at bedtime Orally Once a day Active Katy-D 12 Hour Ac tive Multivitamin - 1 tablet Orally Once a day Active predniSONE 1 MG 1 tablet daily Orally Once a day for 90 days 07/28/2024 Active Remicade 100 MG as directed Intravenous every 8 weeks every other month Active Plaquenil 200 MG one tablet Orally twice a day Active Problems Problem Type SNOMED Code ICD Code Onset Dates Problem Status W/U Status Risk Notes Problem [id number] 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) Active confirmed Problem 561004167 Rheumatoid arthritis with rheumatoid factor of left ankle and foot without organ or systems involvement (M05.772) Active confirmed Problem 515133756 Rheumatoid arthritis involving multiple sites with positive rheumatoid factor (M05.79) Active confirmed Problem 294648694 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) Active confirmed Problem 868476172 Deformity of metatarsal bone of right foot (M21.961) Active confirmed Problem Rheumatoid arthritis of interphalangeal joint of toe (219870062) 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) Active confirmed Vital Signs Heart Rate 80 /min 07/28/2024 Temperature 97.2 degrees Fahrenheit 07/28/2024 Respiratory Rate 16 /min 07/28/2024 Height 5ft 2in in 07/28/2024 Weight 231.7 lbs 07/28/2024 BMI 42.37 kg/m2 07/28/2024 Encounters Encounter Location Date Provider Diagnosis [facility] [address] 07/28/2024 BARRETT MICHELLE Pain in left foot M79.672 ; Pain in right foot M79.671 ; Rheumatoid arthritis of interphalangeal joint of toe M06.9 and Rheumatoid arthritis involving multiple sites with positive rheumatoid factor M05.79 [facility] [address] 08/24/2024 BARRETT MICHELLE [facility] [address] 09/16/2024 BARRETT MICHELLE [facility] [address] 12/28/2024 BARRETT MICHELLE [facility] [address] 01/03/2025 BARRETT MICHELLE [facility] [address] [phone] 04/12/2025 BARRETT MARTINEZ Assessments Encounter Date Diagnosis (ICD Code) Assessment Notes Treatment Notes Treatment Clinical Notes Section Notes 07/28/2024 Pain in left foot (ICD-10 - M79.672) 07/28/2024 Pain in right foot (ICD-10 - M79.671) 07/28/2024 Rheumatoid arthritis of interphalangeal joint of toe (ICD-10 - M06.9) Patient examined and evaluated. Past medical history reviewed in detail. Three weightbearing radiographs of the right and left foot were taken in the office today and compared to her last radiographs in 2021. She has no signs of progressive disease from her RA, which is great. She does have degenerative changes from the destruction that occurred before starting medications. This continues to cause her daily discomfort. We discussed the low dose prednisone and the risks associated with it. I discussed the risks of increased blood sugars causing diabetes, cushings syndrome, weight gain, osteoporosis, slower healing, insomnia, glaucoma, high blood pressure, and AVN of bone. She understood the risks and would still like to proceed. I advised she start with 0.5mg daily and see how she does with that over the next month, if she does not notice any change then she can go to 1mg daily. I will not go more than that for her due to the risks. She understood. I sent over the Rx for her. She will let me know how she does with this. I encouraged her to call me if she has any additional questions or concerns. 07/28/2024 Rheumatoid arthritis involving multiple sites with positive rheumatoid factor (ICD-10 - M05.79) Plan Of Treatment Next Appt Details Provider Name:BARRETT MARTINEZ, 04/28/2025 02:30:00 PM, [address] [facility], [facility] [address], [place], [address], Insurance Providers Payer Name Payer Address Payer Phone Subscriber Number Group Number Insured Name Patient Relationship to Insured Coverage Start Date Coverage End Date [facility] [address] [id number] Genevieve Arauz Self - patient is the insured Medical (General) History Medical History History ICD Code left bundle-branch block hyperlipidemia rheumatoid arthritis involving multiple joints anxiety COVID vaccinated X 2 (WhoSay) and 2 dylan ters (WhoSay) Surgical History Surgery Date(Month/Year) cholecystectomy 1998 1998 bilateral hammertoes-25 years ago left knee replacement 09/26/2023 Excision of digital myxoid cyst left 2nd toe 04/30/2023 Hospitalization History Reason Date(Month/Year) left knee replacement 09/26/2023 behind the knee staph infection (from a bug bite) (girl) 1998
--- OUTSIDE RECORDS SUMMARY | 2025-04-26 10:23 | XMS_ITS | Data Portability ---
Author Organization [place] [facility] Imelda Melendrez [address]ONE [place] Address [address] [place] [address] Care Team Providers Care Radiosonde Operator Name Role Phone ANTONINA DALY Primary Care Provider [phone] Assessment Encounter Date Assessment Date Assessment LastModified by Organization Details LastModified Time 01/21/2023 01/21/2023 Pleasant 62-year-old female degenerative joint disease of the left knee with a history of rheumatoid arthritis. She states she is trying to stave off total joint replacement surgery as long as feasibly possible. She would like to hold off on treatment at today's visit she does take suppressive medication for rheumatoid arthritis which has been helpful. If her symptoms return she is to call my office and I will squeeze her in soon as possible. When the time comes I will have her see Dr. Renee regarding surgical consultation for left knee replacement. She agrees with the above-noted plan. Indirect care and treatment in conjunction with Dr. Renee Additional treatment plan discussed with the patient in detail included the following; - Provider focused nonsteroidal anti-inflammator y regimen (discussed were the pros, cons, benefits and risks as well as any black box warnings) - Analgesic pain medication for pain suppression (discussed were the pros, cons, benefits and risks as well as any black box warnings) - The use of topical pain relieving medication were discussed - The use of ice to decrease inflammation and pain - The use of assistive ambulatory devices for ambulation and fall prevention - Formal specific guided physical therapy program I reviewed my findings at length with the patient today. We discussed the nature and etiology of this problem along with current treatment options. We discussed the expected course and outcomes and what to expect. We also discussed risks and benefits. All of their questions were answered today, and there was exhibited understanding and comprehension of all that was discussed. 10 minutes were spent reviewing previous imaging and charting. 10 minutes were spent obtaining patient history. 5 minutes were spent on physical exam. 5minutes were spent explaining diagnosis and assessment. Today's documentation was made using voice recognition software. This note may contain grammatical errors secondary to the software. [email or web address] Not available 01/21/2023 15:22:59 Plan of Treatment Reminders Order Date Submit Date Provider Last Modified By Organization Details Last Modified Time Details Appointments None record ed. Lab None record ed. Referral None record ed. Procedures None record ed. Surgeries None record ed. Imaging None record ed. Medication Orders None record ed. Patient TargetsNo targets recorded. Patient InstructionsNo instructions recorded. Reason for Referral None Reported. Results Created Date Observation Date Name Description Value Unit Range Abnormal Flag Note LastModifiedBy Organization Detail LastModifiedTime 04/15/20 23 MRI, shoul arya, w/o contr ast No observ ation record ed. [facility] [place] [address] [facility] [address], [place], [address], 04/15/2023 17:09:22 Result Notes None recorded. Problems Name Problem SNOMED Code Status Onset Date Resolution Date Notes Provider Name and Address Organization Details Recorded Time Osteoarthri tis of left knee joint 8185174572254 09 Active 2022 CHRISTIE ROTHMAN PA-C [address] [facility] [address], [place], [address] , [place] [facility] [place], [facility] 3 15:23:19 Problem Notes None recorded. Medical Equipment None Reported. Allergies Allergen ID Allergen Name Allergen Category Reaction Reaction Severity Criticality Documentation Date Start Date Code Code System Note Provider Name and Address Organization Details Recorded Time 628 codeine medicatio n Not available Not available Not available 12/30/2022 2670 RxNorm Zahra tavares, [place] - [facility] [place], P 3 11:48:23 Medications Name Sig Start Date Stop Date Status Note LastModified by Organization Details LastModified Time p-4 pain formulation versatile Apply 1-3 grams to the affected area 3-4 times daily (FEET) active Not Available Not Available No t Available celecoxib 200 mg capsule TAKE 1 CAPSULE BY MOUTH TWICE DAILY active Not Available Not Available No t Available prednisone 10 mg tablet active Not Available Not Available Not Available atorvastatin 20 mg tablet TAKE 1 TABLET BY MOUTH EVERY DAY active Not Available Not Available No t Available clonazepam 0.5 mg tablet TAKE 1 TABLET BY MOUTH EVERYDAY AT BEDTIME NEEDED active Not Available Not Available No t Available prednisone 5 mg tablet TAKE 2 TABLETS BY MOUTH DAILY FOR 5 DAYS THEN TAKE 1 TABLET DAILY FOR 5 DAYS THEN STOP active Not Available Not Available No t Available sulindac 150 mg tablet TAKE 1 TABLET BY MOUTH TWICE A DAY WITH FOOD active Not Available Not Available No t Available methotrexate sodium 25 mg/mL injection solution active Not Available Not Available Not Available triamcinolon e acetonide 0.1 % topical cream active Not Available Not Available Not Available chlorzoxazon e 250 mg tablet TAKE 2-3 TABLETS BY MOUTH UP TO THREE TO FOUR TIMES DAILY NEEDED FOR SPASMS active Not Available Not Available No t Available folic acid 1 mg tablet TAKE 2 TABLETS BY MOUTH DAILY active Not Available Not Available Not Available hydroxychlor oquine 200 mg tablet TAKE 1 TABLET BY MOUTH ONCE A DAY active Not Available Not Available No t Available methylpredni solone 4 mg tablets in a dose pack FOLLOW PACKAGE DIRECTIONS active Not Available Not Available N ot Available escitalopram 20 mg tablet TAKE 1 TABLET BY MOUTH DAILY active Not Available Not Available Not Available methotrexate sodium (PF) 25 mg/mL injection solution INJECT 0.8 ML SUBCUTANEOU SLY ONCE WEEKELY, DISCARD VIAL AFTER ONE USE. active Not Available Not Available No t Available BD SafetyGlide Tuberculin Regular Bevel 1 mL 27 x 1/2 syringe USE ONE SYRINGE WEEKLY WITH METHOTREXAT E INJECTION active Not Available Not Available Not Available sumatriptan active Not Available Not A vailable Not Available meloxicam active Not Available Not Hillary ilable Not Available Folvite active Not Available Not Avail able Not Available epinephrine active Not Available Not A vailable Not Available methotrexate active Not Available Not Available Not Available Indocin active Not Available Not Avail able Not Available clonazepam active Not Available Not Av ailable Not Available Enbrel active Not Available Not Availa ble Not Available Lexapro active Not Available Not Avail able Not Available BinaxNOW COVID-19 Ag Self Test kit TEST DIRECTED TODAY active Not Available Not Available No t Available Vitals None Recorded Social History None recorded. Functional Status None recorded. Mental Status None recorded. Family History Nothing Reported. Medical History No medical history recorded. Gynecological HistoryNo gynecological history recorded. Obstetrics History GPAL:G 0 P 0 0 0 0 Past Encounters Encounter ID Performer Location Encounter Start Date Encounter Closed Date Diagnosis/Indication Diagnosis SNOMED-CT Code Diagnosis ICD10 Code Diagnosis Note [id number] [facility] [address] [place] [address] 01/21/2023 14:53:41 01/21/2023 15:30:53 Osteoarthritis of left knee joint 5654784182 19553 M17.12 Health Concerns Section Related Observation LastModified by Organization Detai ls LastModified Time None Recorded Concern Status LastModified by Organization Details LastModified Time None Recorded Advance Directives Directive None Recorded Payers Insurance Date Sequence Insurance Name Policy Number Policy Schulte Covered Member ID Schulte Member ID Guarantor Name 05/04/[address] [facility] [id number] 1 Genevieve Arauz [id number] Genevieve Arauz Notes Date Note Type Note Provider Name and Address Organization Details Recorded Time 01/21/2023 text/html Very pleasant 62-year-old female history of rheumatoid arthritis had cortisone injection of the left knee joint which gave her good relief on 09/17/2022. She states she has returned with slight symptoms however doing well and she does not feel she needs intervention at this time. CHRISTIE ROTHMAN PA-C [address] [facility] [address], [place], [address], [place] - [facility], P 01/21/2023 15:23:41 OBGyn Episode No OBEpisode recorded.
== END 2025-04-26 10:50 | disposition home or self-care (01) ==
PROVIDERS: PCP Internal Medicine; Visit Provider Internal Medicine Rheumatology
DX: M06.09 Rheumatoid arthritis without rheumatoid factor, multiple sites (principal)
CPT/HCPCS: 99214; G2211

== ENCOUNTER 2025-04-27 13:33 | Outpatient (REF) | payer OTHER, SELFPAY ==
--- NOTE | ~2025-04-27 | XR_ITS ---
EXAMINATION: XR SHOULDER 2 OR MORE VIEWS BILATERAL HISTORY: M06.9 - Rheumatoid arthritis, unspecified COMPARISON: There are no prior studies available for comparison. FINDINGS: Eight views of the bilateral shoulders are submitted. Osseous mineralization is normal. There is no fracture or dislocation. On the right, there is moderate degenerative change of the glenohumeral and acromioclavicular joints, with joint space narrowing and osteophyte formation. On the left, there is mild osteoarthritis of the glenohumeral and acromioclavicular joints. The soft tissues are unremarkable. XR/XR Shoulder Luiz min 2V IMPRESSION: Degenerative changes of the bilateral shoulders as described, right greater than left. Electronically signed by: Leroy Colón MD 04/27/2025 02:31 PM EDT
--- NOTE | ~2025-04-27 | XR_ITS ---
EXAMINATION: XR HAND 3 VIEWS BILATERAL HISTORY: M06.9 - Rheumatoid arthritis, unspecified COMPARISON: There are no prior studies available for comparison. FINDINGS: Six views of the bilateral hands are submitted. Osseous mineralization is normal. There is no fracture or dislocation. On the right, there is moderate degenerative change of the interphalangeal joint of the thumb, the 1st carpometacarpal joint, and the PIP joint of the 3rd finger, and mild osteoarthritis of the DIP joints. No erosions are seen. On the left, there is moderate osteoarthritis of the 1st carpometacarpal joint and mild osteoarthritis of the DIP joints. No erosions are seen. The soft tissues are unremarkable. XR/XR Hand Bilat min 3v IMPRESSION: Degenerative changes of the bilateral hands as described. Electronically signed by: Leroy Colón MD 04/27/2025 02:24 PM EDT
--- NOTE | ~2025-04-27 | XR_ITS ---
EXAMINATION: XR FOOT 3 OR MORE VIEWS BILATERAL HISTORY: M06.9 - Rheumatoid arthritis, unspecified COMPARISON: There are no prior studies available for comparison. FINDINGS: Six views of the bilateral feet are submitted. Osseous mineralization is normal. There is no fracture or dislocation. On the right, there are erosive changes involving the MCP joint of the 5th toe is associated joint space narrowing. There is mild narrowing of the 1st MTP joint. On the left, there is moderate to severe joint space narrowing and osteophyte formation involving the 1st MTP joint. There are small plantar calcaneal spurs. The soft tissues are unremarkable. XR/XR Foot Luiz 3V IMPRESSION: Degenerative change of the 1st MTP joints of both feet. Erosions and joint space narrowing of the 5th MTP joint of the right foot. Electronically signed by: Leroy Colón MD 04/27/2025 02:27 PM EDT
--- OUTSIDE RECORDS SUMMARY | 2025-04-27 14:10 | XMS_ITS | Clinical Summary ---
Author Organization [facility] Address [address] [place] [address] Phone Care Team Providers Care Prison Teacher Name Role Phone Fam Tolbert MD Primary Care Provider [phone] Allergies Active Allergy Reactions Criticality Noted Date [...] this topic Medical Devices Implanted Type Area Configuration Specialist Device Identifier Shelf Expiration Date Model / [...] Maintenance Results * COLONOSCOPY Anesthesia - MAC; [facility] ENDOSCOPY (08/26/2024 3:20 PM [...] results. Narrative 08/26/2024 3:21 PM EST [facility] GI Patient Name: Genevieve [...] not prolapse). Procedure Code(s): --- Professional --- 42491, Colonoscopy, flexible; with removal of tumor(s), polyp(s), or other lesion(s) by snare technique Diagnosis Code(s): --- Professional --- Z83.71, Family history of colonic polyps D12.5, Benign neoplasm of sigmoid colon CPT copyright 2020 [employer]. All rights reserved. The codes documented in this report are preliminary and upon log sorting supervisor review may be revised to meet current compliance requirements. Olga Fernandes MD 08/26/2024 3:21:29 PM This report has been signed electronically.Olga Fernandes MD Number of Addenda: 0 Note Initiated On: 08/26/2024 2:26 PM Scope In: Scope Out: Endoscopy Department at [facility] - [address] [place] [phone] Procedure Note Olga Fernandes MD - 08/26/2024 [facility] GI Patient Name: Genevieve [...] not prolapse). Procedure Code(s): --- Professional --- 56846, Colonoscopy, flexible; with removal of tumor(s), polyp(s), or other lesion(s) by snare technique Diagnosis Code(s): --- Professional --- Z83.71, Family history of colonic polyps D12.5, Benign neoplasm of sigmoid colon CPT copyright 2020 [employer]. All rights reserved. The codes documented in this report are preliminary and upon log sorting supervisor reviewmay be revised to meet current compliance requirements. Olga Fernandes MD 08/26/2024 3:21:29 PM This report has been signed electronically.Olga Fernandes MD Number of Addenda: 0 Note Initiated On: 08/26/2024 2:26 PM Scope In: Scope Out: Endoscopy Department at [facility] - [address] [place] [phone] IMPRESSION: - The examined portion of the [...] RESULTING AGENCY - 09/26/2020 1:55 PM EST [id number] THINPREP PAP, IMAGED: NEGATIVE FOR SQUAMOUS INTRAEPITHELIAL [...] Most Recently Relevant to Health Maintenance Insurance [facility] [address] [place] [address] Care Teams Prison Teacher Relationship Specialty Start Date End Date Fam Tolbert MD [address] [place] [address] PCP - General Internal Medicine 08/24/24
--- OUTSIDE RECORDS SUMMARY | 2025-04-27 14:10 | XMS_ITS | Clinical Summary ---
Author Organization [facility] Address [address] [place] [address] Care Team Providers Care Nail Expert Name Role Phone Fam Tolbert MD Primary Care Provider [phone] Allergies Active Allergy Reactions Criticality Noted Date [...] Group Subscriber ID Effective Dates Phone Address [facility] [id number] 2018-Present [address] [facility] [address] [place] [address] HMO Care Teams Nail Expert Relationship Specialty Start Date End Date Fam Tolbert MD [address] [place] [address] PCP - General Internal Medicine 12/17/22
--- OUTSIDE RECORDS SUMMARY | 2025-04-27 14:10 | XMS_ITS | Data Portability ---
Author Organization [place] [facility] Imelda Melendrez AONE [place] Address [address] [place] [address] Care Team Providers Care Jewelry Store Manager Name Role Phone ANTONINA DALY Primary Care Provider Assessment Encounter Date Assessment Date Assessment LastModified [...] contr ast No observ ation record ed. [facility] [place] [address] [facility] [address], [place], [address], 04/15/2023 17:09:22 Result Notes None recorded. Problems Name Problem SNOMED Code Status Onset Date Resolution Date Notes Provider Name and Address Organization Details Recorded Time Osteoarthri tis of left knee joint 0821996170141 09 Active 2022 CHRISTIE ROTHMAN PA-C [address] [facility] [address], [place], [address] , [place] [facility] [place], P 3 15:23:19 Problem Notes None recorded. Medical Equipment None Reported. Allergies Allergen ID Allergen Name Allergen Category Reaction Reaction Severity Criticality Documentation Date Start Date Code Code System Note Provider Name and Address Organization Details Recorded Time 628 codeine medicatio n Not available Not available Not available 12/30/2022 2670 RxNorm Zahra tavares, [place] [facility] [place], P 3 11:48:23 Medications Name Sig Start [...] Code Diagnosis Note [id number] [facility] [address] [place] [address] 01/21/2023 14:53:41 01/21/2023 15:30:53 Osteoarthritis of left knee joint 0637010074 60051 M17.12 Health Concerns Section Related Observation LastModified by Organization Detai ls LastModified Time None Recorded Concern Status LastModified by Organization Details LastModified Time None Recorded Advance Directives Directive None Recorded Payers Insurance Date Sequence Insurance Name Policy Number Policy Schulte Covered Member ID Schulte Member ID Guarantor Name 05/04/2023 1 [facility] [id number] 1 Genevieve Arauz [id number] Genevieve Arauz Notes Date Note Type Note [...] at this time. CHRISTIE ROTHMAN PA-C [address] [facility] [address], [place], [address], [place] [facility] [place], P 01/21/2023 15:23:41 OBGyn Episode No OBEpisode recorded.
--- OUTSIDE RECORDS SUMMARY | 2025-04-27 14:10 | XMS_ITS | Clinical Summary ---
Author Organization [facility] Address [address] [place] [address] Care Team Providers Care Animal Hospital Clerk Name Role Phone Fam Tolbert MD Primary [...] patient's age to complete this topic Insurance [facility] Care Teams Animal Hospital Clerk Relationship Specialty Start Date End Date Fam Tolbert MD [address] [place] [address] PCP - General 11/29/24
--- OUTSIDE RECORDS SUMMARY | 2025-04-27 14:10 | XMS_ITS | Patient Health Record ---
Author Organization [facility] Address [address] [facility] [address] [place] [address] Care Team Providers Care Hospice Physician Name Role Phone Corey Layne Primary Care Provider BARRETT Rodriguez Unavailable [phone] Allergies Allergen (clinical drug ingredient) Drug/Non Drug [...] Problem Status W/U Status Risk Notes Problem [id number] 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) Active confirmed Problem 147213592 Rheumatoid arthritis with rheumatoid factor of left ankle and foot without organ or systems involvement (M05.772) Active confirmed Problem 802324578 Rheumatoid arthritis involving multiple sites with positive rheumatoid factor (M05.79) Active confirmed Problem 394925209 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) Active confirmed Problem 825204242 Deformity of metatarsal bone of right foot (M21.961) Active confirmed Problem Rheumatoid arthritis of interphalangeal joint of toe (047676348) 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) Active confirmed Vital Signs Heart Rate 80 /min 07/28/2024 Temperature 97.2 degrees Fahrenheit 07/28/2024 Respiratory Rate 16 /min 07/28/2024 Height 5ft 2in in 07/28/2024 Weight 231.7 lbs 07/28/2024 BMI 42.37 kg/m2 07/28/2024 Encounters Encounter Location Date Provider Diagnosis [facility] [address] 07/28/2024 BARRETT MICHELLE Pain in left foot M79.672 ; Pain in right foot M79.671 ; Rheumatoid arthritis of interphalangeal joint of toe M06.9 and Rheumatoid arthritis involving multiple sites with positive rheumatoid factor M05.79 [facility] [address] 08/24/2024 BARRETT MICHELLE [facility] [address] 09/16/2024 BARRETT MICHELLE [facility] [address] 12/28/2024 BARRETT MICHELLE [facility] [address] 01/03/2025 BARRETT MICHELLE [facility] [address] [address] 04/12/2025 BARRETT MARTINEZ Assessments Encounter Date Diagnosis [...] Name:BARRETT MARTINEZ, 04/28/2025 02:30:00 PM, [address] [facility], [facility] [address], [place], [address], Insurance Providers Payer Name Payer Address Payer Phone Subscriber Number Group Number Insured Name Patient Relationship to Insured Coverage Start Date Coverage End Date [facility] [address] [facility] [phone] [id number] Genevieve Arauz Self - patient is the insured Medical (General) History Medical History History ICD Code left bundle-branch block hyperlipidemia rheumatoid arthritis involving multiple joints anxiety COVID vaccinated X 2 (Job1001) and 2 dylan ters (Job1001) Surgical History Surgery Date(Month/Year) cholecystectomy 1998 1998 bilateral hammertoes-25 years ago left knee replacement 09/26/2023 Excision of digital myxoid cyst left 2nd toe 04/30/2023 Hospitalization History Reason Date(Month/Year) left knee replacement 09/26/2023 behind the knee staph infection (from a bug bite) (girl) 1998
== END 2025-04-27 13:34 | disposition home or self-care (01) ==
LOC: HO.XRAY 13:33
PROVIDERS: PCP Internal Medicine; Visit Provider Internal Medicine Rheumatology
DX: M06.9 Rheumatoid arthritis, unspecified (principal)
CPT/HCPCS: 73030; 73130; 73630

== ENCOUNTER → 2025-04-27 13:37 | Outpatient (BNV) | payer OTHER, SELFPAY | PROVIDERS: PCP Internal Medicine; Visit Provider Radiology Diagnostic Radiology | DX: M19.012 Primary osteoarthritis, left shoulder (principal); M19.011 Primary osteoarthritis, right shoulder; M19.041 Primary osteoarthritis, right hand; M19.042 Primary osteoarthritis, left hand; M19.071 Primary osteoarthritis, right ankle and foot; M19.072 Primary osteoarthritis, left ankle and foot | CPT/HCPCS: 73030; 73130; 73630 ==

== ENCOUNTER 2025-06-15 08:03 | Outpatient (AMB) | payer OTHER, SELFPAY ==
[2025-06-15 08:05] VITALS: BP 120/80; PULSE 75; O2SAT 98; BMI 38.8
--- NOTE | 2025-06-15 08:05 | A.OFFVIS_ITS ---
Vital Signs 06/15/25 08:05 Height 5 ft 4 in Weight 226 lb 3.108 oz BMI 38.8 BP 120/80 Blood Pressure Location Rt brachial Position Sitting Pulse 75 Pulse Source Pulse Oximeter Pulse Oximetry (%) 98 Oxygen Delivery Method Room Air Intake Visit Reasons: Med review Intake Note: Patient presents today for an RA follow up. Accompanied by: Self / Same As Patient Allergies apple Allergy (Verified 06/15/25 08:06) Rash codeine Allergy (Verified 06/15/25 08:06) vomitting, hives kiwi Allergy (Verified 06/15/25 08:06) Rash oxycodone Allergy (Verified 06/15/25 08:06) Vomiting Sulfa (Sulfonamide Antibiotics) Allergy (Verified 06/15/25 08:06) vomitting, hives HPI HPI Med review: Details: She is on prednisone 10mg daily. Unable to taper below prednisone 10mg daily. She tried to taper from prednisone 10 mg daily to 5 mg daily. When she decreases her prednisone below 10 mg daily she is experiencing increased pain in multiple joints including her shoulders, hands, knees and feet. She experiences increased swelling in her hands. Morning stiffness is lasting all day. He had 1 dose of Simponi SC early May. No recent infections. [facility] Medical History Arthritis of left knee Arthritis Back pain Hx of migraines Numbness Left bundle branch block Severe obesity Rheumatoid arthritis Hyperlipidemia Anxiety Surgical History Hx of left knee surgery (~09/28/23) Hx of toe surgery H/O laparoscopic adjustable gastric banding Hx of excision of dermoid cyst Hx of cholecystectomy Hx of section H/O colonoscopy History of toe surgery Social History Household Members: Spouse and Children Housing: House Are you a primary rn coronary care unit to a significant other at home: No Do you presently have visiting nurse or other home services: No Alcohol intake: current Alcohol intake frequency: holidays/special occasions only Patient Tobacco Use Status: Former Tobacco user Second Hand Smoke Exposure: No Substance Use Type: Marijuana service: No Current occupation: Teacher Physical Exam Vital Signs: Last Vital Signs Pulse 75 06/15/25 08:05 BP 120/80 06/15/25 08:05 Pulse Ox 98 06/15/25 08:05 Oxygen Delivery Method Room Air 06/15/25 08:05 BMI result Body Mass Index 38.8 Const Other: General: Comfortable CVS: RRR Respiratory: clear to auscultation bilaterally. Good respiratory effort Skin: No lesions seen MSK: Tender to palpate right 2nd and 3rd MCP with synovitis present. She has tenderness of bilateral MCPs, PIPs, elbows, shoulders, left knee, bilateral ankles and MTPs. Left shoulder range of motion is normal. Right shoulder abduction is 160 degrees with pain and limited full internal rotation with pain. Knee flexion is 90 degrees bilateral. Assessment & Plan Assessment & Plan (1) Rheumatoid arthritis: Comment: Inflammatory arthritis is not controlled. High disease activity per CDAI. She has failed treatment with Simponi Aria and the transition to Simponi SC without any change in her symptoms and now dependence of low-dose prednisone to control her symptoms and for her to remain functional. We discussed next steps in treatment. Treatment with Orencia is indicated. Rheumatology history: Erosive, anti CCP antibody positive. Initial presentation in 2016 with chronic left knee swelling (WCC 11K, no crystals), which was eventually replaced (TKR). Failed hydroxychloroquine, Enbrel, Inflectra (2488-2958), methotrexate ([id number]). Simponi Aria 02/2025-. History of right rotator cuff tendon tears (MRI 2016 reveals full-thickness tear of distal supraspinatus tendon, infraspinatus tendon, subdeltoid bursitis, glenohumeral effusion), failed physical therapy and cortisone injection. Patient is holding off on surgery. History of gastric band surgery. Contraindication to oral NSAIDs. Failed Simponia Aria (2 doses) and transition to SC (1 dose) requiring chronic prednisone. Code(s): M06.9 - Rheumatoid arthritis, unspecified Category: Medical Qualifiers: Rheumatoid arthritis location: multiple sites Rheumatoid factor presence: without rheumatoid factor Qualified Code(s): M06.09 - Rheumatoid arthritis without rheumatoid factor, multiple sites Plan: She will try to decrease prednisone to 7.5 mg daily. If she is unable to decrease prednisone to 7.5 mg daily, she will alternate 10 mg on day 1 with 7.5 the next day. She will call office when she needs a prednisone refill. We will initiate PA for Orencia IV induction 1g on week 0, 2 then 4 weeks after initial infusion then maintenance every 4 weeks after Labs for drug monitoring on high-risk medication ordered She will take her next dose of Simponi SC as soon as it was delivered while we work on PA for Orencia. Orencia we will need to be started 4 weeks after Si mponi SC injection. Continue hydroxychloroquine 200 mg daily. JUL 1804/2025 ok. Return to clinic in 3 months Orders: Referrals Infusion Center Notification M06.09 - Rheumatoid arthritis without rheumatoid factor, multiple sites Medications: New prednisone 7.5 mg (3 x 2.5 mg) PO DAILY 270 tabs 1RF 90 days Coding Level of Care Code Est Pt Level 4 (09638) Complex EM visit Add On G2211 Diagnoses Rheumatoid arthritis of multiple sites with negative rheumatoid factor M06.09 Rheumatoid arthritis location: multiple sites Rheumatoid factor presence: without rheumatoid factor
--- OUTSIDE RECORDS SUMMARY | 2025-06-15 08:17 | XMS_ITS | Clinical Summary ---
Author Organization [facility] Address [address] [place] [address] [place] [address] Phone Care Team Providers Care International Sales Manager Name Role Phone Fam Tolbert MD Primary Care Provider [phone] Encounters Date Type Department Care Team Description 04/20/2025 Telephone [facility] [address] [place] [address] [place] [address] Steve Perrin MD, [facility] from Last 3 Months Social History Tobacco Use Types Packs/Day Years Used Date Smoking Tobacco: Never Assessed Education Answer Date Recorded Are you interested in more education? Not on joey e 04/20/2025 Are you concerned about learning? Not on file 04/20/2025 No 04/20/2025 No 04/20/2025 Digital Access Answer Date Recorded No 04/20/2025 No 04/20/2025 Reliable internet access at home? Not on file 04/20/2025 Device with a working camera? Not on file Comments Unknown Sex and Gender Information Value Date Recorded Sex Assigned at Female 04/12/2025 12:57 PM EDT Legal Sex Female 12:53 PM EDT Gender Identity Female 04/12/2025 12:57 PM EDT Sexual Orientation Straight 04/12/2025 12 :57 PM EDT Plan of Treatment Health Maintenance Due Date Last Done Comments Adult Td,Tdap Booster 1961 LIPID PANEL 1961 DEPRESSION SCREENING 1973 SMOKING Hx and SMOKELESS TOB ACCO SCREENING 1974 HEPATITIS C SCREENING 1979 HIV ONE-TIME SCREENING (18-6 5 YEARS) 1979 PAP SMEAR 1982 MAMMOGRAM 2001 COLOGUARD 2006 COLONOSCOPY 2006 COLORECTAL CANCER SCREENING 2006 FIT TEST 2006 FOBT 2006 SIGMOIDOSCOPY 2006 VIRTUAL COLONOSCOPY 2006 PNEUMOCOCCAL VACCINES (50+ y ears) (1 of 1 - PCV) 2011 ZOSTER VACCINES (1 of 2) 2011 COVID-19 VACCINE (1 - 2023-2 5 season) 2024 RSV VACCINE (1 - 1-dose 75+ series) 2036 HEPATITIS A VACCINES Aged Out No long er eligible based on patient's age to complete this topic HIB VACCINES Aged Out No longer eligi ble based on patient's age to complete this topic MENINGOCOCCAL VACCINES (ACWY) Aged Out No longer eligible based on patient's age to complete this topic MENINGOCOCCAL VACCINES (B) Aged Out N o longer eligible based on patient's age to complete this topic Medical Devices Not on file [facility] H[facility] Care Teams International Sales Manager Relationship Specialty Start Date End Date Fam Tolbert MD [address] [place] [id number] PCP - General Internal Medicine 04/12/25 Additional Source Comments The information contained in this document represents components of the legal health record. It is not the complete legal health record.[facility]
--- OUTSIDE RECORDS SUMMARY | 2025-06-15 08:17 | XMS_ITS | Clinical Summary ---
Author Organization [facility] Address [address] [place] [address] Care Team Providers Care Boat Rental Clerk Name Role Phone Fam Tolbert MD Primary Care Provider [phone] Allergies Active Allergy Reactions Criticality Noted Date [...] Group Subscriber ID Effective Dates Phone Address [facility] [id number] 2018-Present 1 [facility] [address] [place] [address] HMO Care Teams Boat Rental Clerk Relationship Specialty Start Date End Date Fam Tolbert MD [address] [place] [address] PCP - General Internal Medicine 12/17/22
--- OUTSIDE RECORDS SUMMARY | 2025-06-15 08:17 | XMS_ITS | Clinical Summary ---
Author Organization [facility] Address [address] [place] [address] Phone Care Team Providers Care Flag Football Coach Name Role Phone Fam Tolbert MD Primary Care Provider [phone] Allergies Active Allergy Reactions Criticality Noted Date [...] series) 2021 Cholesterol Screening (Lipid Panel) 09/20/2022 HIV Screening 09/20/2022 Hepatitis C Screening 09/20/2022 Social Influencers of Health Screening 09/20/2022 Cervical Cancer Screening: Pap Smear 09/24/2023 09/24/2020 Depression Screening 10/12/2024 COVID-19 Vaccine ( season) 2025 09/04/2023, 11/06/2021, 05/28/2021, Additional history exists Influenza [...] this topic Medical Devices Implanted Type Area Wax Pot Tender Device Identifier Shelf Expiration Date Model / [...] Maintenance Results * COLONOSCOPY Anesthesia - MAC; [facility] ENDOSCOPY (08/26/2024 3:20 PM EST) Anatomical Region [...] pathology results. Narrative 08/26/2024 3:21 PM EST [facility] GI Patient Name: Genevieve Arauz [...] not prolapse). Procedure Code(s): --- Professional --- 62697, Colonoscopy, flexible; with removal of tumor(s), polyp(s), or other lesion(s) by snare technique Diagnosis Code(s): --- Professional --- Z83.71, Family history of colonic polyps D12.5, Benign neoplasm of sigmoid colon CPT copyright 2020 [employer]. All rights reserved. The codes documented in this report are preliminary and upon fruit shipper review may be revised to meet current compliance requirements. Olga Fernandes MD 08/26/2024 3:21:29 PM This report has been signed electronically.Olga Fernandes MD Number of Addenda: 0 Note Initiated On: 08/26/2024 2:26 PM Scope In: Scope Out: Endoscopy Department at [facility] - [address] [place] [phone] Procedure Note Olga Fernandes MD - 08/26/2024 [facility] GI Patient Name: Genevieve Arauz [...] not prolapse). Procedure Code(s): --- Professional --- 74768, Colonoscopy, flexible; with removal of tumor(s), polyp(s), or other lesion(s) by snare technique Diagnosis Code(s): --- Professional --- Z83.71, Family history of colonic polyps D12.5, Benign neoplasm of sigmoid colon CPT copyright 2020 [employer]. All rights reserved. The codes documented in this report are preliminary and upon fruit shipper reviewmay be revised to meet current compliance requirements. Olga Fernandes MD 08/26/2024 3:21:29 PM This report has been signed electronically.Olag Fernandes MD Number of Addenda: 0 Note Initiated On: 08/26/2024 2:26 PM Scope In: Scope Out: Endoscopy Department at [facility] - [address] [place] [phone] IMPRESSION: - The examined portion of the [...] RESULTING AGENCY - 09/26/2020 1:55 PM EST [id number] THINPREP PAP, IMAGED: NEGATIVE FOR SQUAMOUS INTRAEPITHELIAL [...] Most Recently Relevant to Health Maintenance Insurance [facility] [address] [place] [address] Care Teams Flag Football Coach Relationship Specialty Start Date End Date Fam Tolbert MD [address] [place] [address] PCP - General Internal Medicine 08/24/24
--- OUTSIDE RECORDS SUMMARY | 2025-06-15 08:18 | XMS_ITS | Clinical Summary ---
Author Organization [facility] Address [address] [place] [address] Care Team Providers Care Sanding Supervisor Name Role Phone Fam Tolbert MD Primary [...] age to complete this topic Insurance [facility] Care Teams Sanding Supervisor Relationship Specialty Start Date End Date Fam Tolbert MD [address] [place] [address] PCP - General 11/29/24
--- OUTSIDE RECORDS SUMMARY | 2025-06-15 08:18 | XMS_ITS | Patient Health Record ---
Author Organization [facility] Address [address] [facility] [address] [place] [address] Care Team Providers Care Ophthalmic Medical Technician Name Role Phone Corey Layne Primary Care Provider BARRETT Rodriguez Unavailable [phone] Allergies Allergen (clinical drug ingredient) Drug/Non Drug [...] Duration) Notes Start Date End Date Status Multivitamin - 1 tablet Orally Once a day Active Wegovy 0.25 MG/0.5ML 0.5 mL Subcutaneous weekly Active predniSONE Active Simponi Aria 50 MG/4ML as directed Intravenous Active Remicade 100 MG as directed Intravenous every 8 weeks every other month Not-Taking clonazePAM 0.5 MG 1 tablet at bedtime Orally Once a day Active Escitalopram Oxalate 20 MG 1 tablet Orally Once a day Active Katy-D 12 Hour Ac tive Tylenol PRN Not-Taking Problems Problem Type SNOMED Code ICD Code Onset Dates Problem Status W/U Status Risk Notes Problem Rheumatoid arthritis (72078936) 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) Active confirmed Problem Rheumatoid arthritis (54280950) Rheumatoid arthritis with rheumatoid factor of left ankle and foot without organ or systems involvement (M05.772) Active confirmed Problem Rheumatoid arthritis (94855419) Rheumatoid arthritis involving multiple sites with positive rheumatoid factor (M05.79) Active confirmed Problem Deformity of metatarsal (274011445) 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) Active confirmed Problem Deformity of right foot (finding) (314157717) Deformity of metatarsal bone of right foot (M21.961) Active confirmed Problem Rheumatoid arthritis of interphalangeal joint of toe (508045814) 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) Active confirmed Problem Localized, primary osteoarthritis of the ankle and/or foot (094955075) Arthritis of joint of lesser toe, left (M19.072) Active confirmed Problem Seropositive rheumatoid arthritis (822618871) Seropositive rheumatoid arthritis (M05.9) Active confirmed Vital Signs Heart Rate 80 /min 07/28/2024 Temperature 97.2 degrees Fahrenheit 07/28/2024 Respiratory Rate 16 /min 07/28/2024 Height 5ft 2in in 04/28/2025 Weight 231 lbs 04/28/2025 BMI 42.25 kg/m2 04/28/2025 Procedures Procedure Date Ordered Date Performed Result Body Sit e ASPIRATE/INJ GANGLION CYST 04/28/2025 N/A Encounters Encounter Location Date Provider Diagnosis [facility] [address] 07/28/2024 BARRETT MICHELLE Pain in left foot M79.672 ; Pain in right foot M79.671 ; Rheumatoid arthritis of interphalangeal joint of toe M06.9 and Rheumatoid arthritis involving multiple sites with positive rheumatoid factor M05.79 [facility] [address] 04/28/2025 BARRETT MICHELLE Arthritis of joint o f lesser toe, left M19.072 ; Digital mucinous cyst of toe of left foot M67.472 and Seropositive rheumatoid arthritis M05.9 [facility] [address] 08/24/2024 BARRETT MICHELLE [facility] [address] 09/16/2024 BARRETT MICHELLE [facility] [address] 12/28/2024 BARRETT MARTINEZ [facility] [address] [address] 01/03/2025 BARRETT MARTINEZ [facility] [address] [phone] 04/12/2025 BARRETT MARTINEZ Assessments Encounter Date Diagnosis (ICD Code) Assessment Notes Treatment Notes Treatment Clinical Notes Section Notes 07/28/2024 Pain in left foot (ICD-10 - M79.672) 04/28/2025 Digital mucinous cyst of toe of left foot (ICD-10 - M67.472) Patient examined and evaluated. Past medical history reviewed. She has seropositive RA that has been hard to control wt medications. She is currently on 30mg of prednisone and will taper this slowly. She also just started simponi. Her diving coach wants her to continue with this for the next three months before trying a different medication. She does have quite a bit of joint changes. She presents with a mucoid cyst to the left 3rd toe. I discussed with her the options of treatment today. We discussed drainage or excision. She wished to try the drainage first and if it does come back quickly we can excise in the future if needed. The cyst was drained in the office today. She tolerated this well. She was bandaged and given post procedural instructions. She will follow back with me as needed. I encouraged her to call if she has any questions or concerns. 04/28/2025 Arthritis of joint of lesser toe, left (ICD-10 - M19.072) 04/28/2025 Seropositive rheumatoid arthritis (ICD-10 - M05.9) 07/28/2024 Pain in right foot (ICD-10 - [...] factor (ICD-10 - M05.79) Plan Of Treatment Pending Test Test Name Order Date ASPIRATE/INJ GANGLION CYST 04/28/2025 Insurance Providers Payer Name Payer Address Payer Phone Subscriber Number Group Number Insured Name Patient Relationship to Insured Coverage Start Date Coverage End Date [facility] [address] [place] [address] [id number] Genevieve Arauz Self - patient is the insured Medical (General) History Medical History History ICD Code left bundle-branch block hyperlipidemia Seropositive rheumatoid arthritis anxiety COVID vaccinated X 2 (Pfizer) and 2 dylan ters (Infinio) Obesity Elevated LFTs Surgical History Surgery Date(Month/Year) cholecystectomy 1998 1998 bilateral hammertoes-25 years ago left knee replacement 09/26/2023 Excision of digital myxoid cyst left 2nd toe 04/30/2023 Hospitalization History Reason Date(Month/Year) left knee replacement 09/26/2023 behind the knee staph infection (from a bug bite) (girl) 1998
== END 2025-06-15 08:31 | disposition home or self-care (01) ==
LOC: HO.RHES 08:03
PROVIDERS: PCP Internal Medicine; Visit Provider Internal Medicine Rheumatology
DX: M06.09 Rheumatoid arthritis without rheumatoid factor, multiple sites (principal)
CPT/HCPCS: 99214; G2211

== ENCOUNTER 2025-06-15 08:03 | Outpatient (REF) | payer OTHER, SELFPAY ==
[2025-06-15 12:59] LABS: MANUAL DIFF FLAG NO
[2025-06-15 13:18] LABS: Hematocrit 41.8 % (37.0-47.0); Hemoglobin 14.1 g/dl (12.0-16.0); Imm Gran Abs Auto 0.01 X10*3/uL (0.00-0.03); Imm Gran Pct Auto 0.1 % (0.0-0.4); Lymphocytes Absolute Auto 3.4 X10*3/uL (1.2-4.9); Mean Corpuscular HGB Conc 33.7 g/dl (31.0-35.0); Mean Corpuscular Hemoglobin 29.8 pg (27.0-33.0); Mean Corpuscular Volume 88.4 fL (80.0-98.0); NRBC Abs Auto 0.000 X10*3/uL (0.0-0.012); NRBC Pct Auto 0.0 /100WBC (0.0-0.2); Platelet Count 275 X10*3/uL (160-400); Red Blood Count 4.73 X10*6/uL (4.20-5.50); White Blood Count 6.8 X10*3/uL (4.8-10.8)
[2025-06-15 13:25] LABS: Alanine Aminotransferase 21 U/L (0-31); Aspartate Amino Transferase 27 U/L (5-31); Estimated Glomerular Filt Rate > 60
== END 2025-06-15 08:04 | disposition home or self-care (01) ==
LOC: HO.HKASLDS 08:03
PROVIDERS: PCP Internal Medicine; Visit Provider Internal Medicine Rheumatology
DX: M06.09 Rheumatoid arthritis without rheumatoid factor, multiple sites (principal); Z51.81 Encounter for therapeutic drug level monitoring; Z79.52 Long term (current) use of systemic steroids; Z79.899 Other long term (current) drug therapy
CPT/HCPCS: 36415; 82565; 84450; 84460; 85025; 85652; 86140

== ENCOUNTER 2025-09-20 11:09 | Outpatient (REF) | payer OTHER, SELFPAY ==
[2025-09-20 13:52] LABS: MANUAL DIFF FLAG NO
[2025-09-20 14:01] LABS: Hematocrit 42.7 % (37.0-47.0); Hemoglobin 14.4 g/dl (12.0-16.0); Imm Gran Abs Auto 0.02 X10*3/uL (0.00-0.03); Imm Gran Pct Auto 0.3 % (0.0-0.4); Lymphocytes Absolute Auto 2.1 X10*3/uL (1.2-4.9); Mean Corpuscular HGB Conc 33.7 g/dl (31.0-35.0); Mean Corpuscular Hemoglobin 29.9 pg (27.0-33.0); Mean Corpuscular Volume 88.6 fL (80.0-98.0); NRBC Abs Auto 0.000 X10*3/uL (0.0-0.012); NRBC Pct Auto 0.0 /100WBC (0.0-0.2); Platelet Count 253 X10*3/uL (160-400); Red Blood Count 4.82 X10*6/uL (4.20-5.50); White Blood Count 6.6 X10*3/uL (4.8-10.8)
[2025-09-20 14:25] LABS: Alanine Aminotransferase 23 U/L (0-31); Aspartate Amino Transferase 29 U/L (5-31); Estimated Glomerular Filt Rate 60
--- OUTSIDE RECORDS SUMMARY | 2025-09-20 17:52 | XMS_ITS | Clinical Summary ---
Author Organization [facility] Address [address] [place], [place] [address] Phone Care Team Providers Care Helmet Hat Sweatband Puncher Name Role Phone Fam Tolbert MD Primary Care Provider [phone] Social History Tobacco Use Types Packs/Day Years [...] 2011 ZOSTER VACCINES (1 of 2) 2011 INFLUENZA VACCINE (#1) 2025 COVID-19 VACCINE (1 - 2024-2 6 season) 2025 RSV VACCINE (1 - 1-dose 75+ series) [...] topic Medical Devices Not on file Insurance [id number] [place], [place] [id number] [place] [address] [address] [facility] H[facility] Care Teams Helmet Hat Sweatband Puncher Relationship Specialty Start Date End Date Fam Tolbert MD [address] [place] [address] PCP - General Internal Medicine 04/12/25 Additional Source Comments The information contained in this document represents components of the legal health record. It is not the complete legal health record.[facility]
--- OUTSIDE RECORDS SUMMARY | 2025-09-20 17:52 | XMS_ITS | Patient Health Record ---
Author Organization [facility] Address [address] [facility] [address] [place] [address] Care Team Providers Care Puzzle Assembler Name Role Phone Corey Layne Primary Care Provider BARRETT Rodriguez Unavailable [phone] Allergies Allergen (clinical drug ingredient) Drug/Non Drug [...] MG/0.5ML 0.5 mL Subcutaneous weekly Active predniSONE 5 MG TAKE 1 TABLET ONCE DAILY WITH FOOD; Duration: 90 Active Simponi Aria 50 MG/4ML as directed [...] W/U Status Risk Notes Problem Rheumatoid arthritis (10134020) 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) Active confirmed Problem Rheumatoid arthritis (81120836) Rheumatoid arthritis with rheumatoid factor of left ankle and foot without organ or systems involvement (M05.772) Active confirmed Problem Rheumatoid arthritis (92641223) Rheumatoid arthritis involving multiple sites with positive rheumatoid factor (M05.79) Active confirmed Problem Deformity of metatarsal (877109745) 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) Active confirmed Problem Deformity of right foot (finding) (569580677) Deformity of metatarsal bone of right foot (M21.961) Active confirmed Problem Rheumatoid arthritis of interphalangeal joint of toe (878687464) 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) Active confirmed Problem Localized, primary osteoarthritis of the ankle and/or foot (012182761) Arthritis of joint of lesser toe, left (M19.072) Active confirmed Problem Seropositive rheumatoid arthritis (029636147) Seropositive rheumatoid arthritis (M05.9) Active confirmed Vital Signs Height 5ft 2in in 04/28/2025 Weight 231 lbs 04/28/2025 BMI 42.25 kg/m2 04/28/2025 Procedures Procedure Date Ordered Date Performed Result Body Sit e ASPIRATE/INJ GANGLION CYST 04/28/2025 N/A Encounters Encounter Location Date Provider Diagnosis [facility] [address] [address] 04/28/2025 BARRETT MATRINEZ Arthritis of joint o f lesser toe, left M19.072 ; Digital mucinous cyst of toe of left foot M67.472 and Seropositive rheumatoid arthritis M05.9 [facility] [address] [address] 12/28/2024 BARRETT MICHELLE [facility] [address] [address] 01/03/2025 BARRETT MICHELLE [facility] [address] [address] 04/12/2025 BARRETTLucinda MARTINEZ Assessments Encounter Date Diagnosis (ICD Code) Assessment Notes Treatment Notes Treatment Clinical Notes Section Notes 04/28/2025 Digital mucinous cyst of toe of left foot (ICD-10 - M67.472) Patient examined and evaluated. Past medical history reviewed. She has seropositive RA that has been hard to control wt medications. She is currently on 30mg of prednisone and will taper this slowly. She also just started simponi. Her still operator helper wants her to continue with this for [...] 04/28/2025 Seropositive rheumatoid arthritis (ICD-10 - M05.9) Plan Of Treatment Pending Test Test Name Order Date ASPIRATE/INJ GANGLION CYST 04/28/2025 Insurance Providers Payer Name Payer Address Payer Phone Subscriber Number Group Number Insured Name Patient Relationship to Insured Coverage Start Date Coverage End Date [facility] [address] [place] [address] [id number] Genevieve Arauz Self - patient is the insured Medical (General) History Medical History History ICD Code left bundle-branch block hyperlipidemia Seropositive rheumatoid arthritis anxiety COVID vaccinated X 2 (Pfizer) and 2 dylan ters (Filmzu) Obesity Elevated LFTs Surgical History Surgery Date(Month/Year) cholecystectomy 1998 1998 bilateral hammertoes-25 years ago left knee replacement 09/26/2023 Excision of digital myxoid cyst left 2nd toe 04/30/2023 Hospitalization History Reason Date(Month/Year) left knee replacement 09/26/2023 behind the knee staph infection (from a bug bite) (girl) 1998
--- OUTSIDE RECORDS SUMMARY | 2025-09-20 17:52 | XMS_ITS | Clinical Summary ---
Author Organization [facility] Address [address] [place] [address] Phone Care Team Providers Care Dumper Name Role Phone Fam Tolbert MD Primary Care Provider [phone] Allergies Active Allergy Reactions Criticality Noted Date [...] Years Used Date Smoking Tobacco: Former Cigarettes 0 Q uit: 10/12/2006 Smokeless Tobacco: Never Alcohol Use Standard Drinks/Week Comments Yes 0 (1 standard drink = 0.6 oz pur e alcohol) Interpersonal Safety Answer Date Record ed Physical Abuse Unrecognized value 08/26/2024 Verbal Abuse Unrecognized value 08/26/2024 Comments No Sex and Gender Information Value Date Recorded Sex Assigned at Female 08/24/2024 5:32 PM EST Legal Sex Female 12:54 AM EST Gender Identity Female 08/24/2024 5:32 PM EST Sexual Orientation Straight 08/24/2024 5: 32 PM EST Last Filed Vital Signs Vital Sign [...] Years (1 of 1 - PCV) 2011 RSV Immunization Adult Patients (1 - Risk 50-74 years 1-dose series) 2011 Zoster Vaccines (1 of 2) 2011 Cholesterol Screening (Lipid Panel) 09/20/2022 HIV Screening 09/20/2022 Hepatitis C Screening 09/20/2022 Social Influencers of Health Screening 09/20/2022 Cervical Cancer Screening: Pap Smear 09/24/2023 09/24/2020 Depression Screening 10/12/2024 COVID-19 Vaccine ( season) 2025 09/04/2023, 11/06/2021, 05/28/2021, Additional history exists Influenza Vaccine (#1) 2025 , 06/18/2023, 06/24/2022, Additional history exists Breast Cancer Screening 03/03/2026 03/03/20, 03/03/2024, 01/22/2023, Additional history exists DTaP,Tdap,and Td [...] this topic Medical Devices Implanted Type Area Breaker Operator Device Identifier Shelf Expiration Date Model / [...] Maintenance Results * COLONOSCOPY Anesthesia - MAC; [facility] ENDOSCOPY (08/26/2024 3:20 PM EST) [...] pathology results. Narrative 08/26/2024 3:21 PM EST [facility] GI Patient Name: Genevieve Arauz [...] not prolapse). Procedure Code(s): --- Professional --- 14291, Colonoscopy, flexible; with removal of tumor(s), polyp(s), or other lesion(s) by snare technique Diagnosis Code(s): --- Professional --- Z83.71, Family history of colonic polyps D12.5, Benign neoplasm of sigmoid colon CPT copyright 2020 [employer]. All rights reserved. The codes documented in this report are preliminary and upon tennis centre manager review may be revised to meet current compliance requirements. Olga Fernandes MD 08/26/2024 3:21:29 PM This report has been signed electronically.Olga Fernandes MD Number of Addenda: 0 Note Initiated On: 08/26/2024 2:26 PM Scope In: Scope Out: Endoscopy Department at [facility] - [address] [place] [phone] Procedure Note Olga Fernandes MD - 08/26/2024 [facility] GI Patient Name: Genevieve Arauz [...] not prolapse). Procedure Code(s): --- Professional --- 82681, Colonoscopy, flexible; with removal of tumor(s), polyp(s), or other lesion(s) by snare technique Diagnosis Code(s): --- Professional --- Z83.71, Family history of colonic polyps D12.5, Benign neoplasm of sigmoid colon CPT copyright 2020 [employer]. All rights reserved. The codes documented in this report are preliminary and upon tennis centre manager reviewmay be revised to meet current compliance requirements. Olga Fernandes MD 08/26/2024 3:21:29 PM This report has been signed electronically.Olga Fernandes MD Number of Addenda: 0 Note Initiated On: 08/26/2024 2:26 PM Scope In: Scope Out: Endoscopy Department at [facility] - [address] [place] [phone] IMPRESSION: - The examined portion of the [...] RESULTING AGENCY - 09/26/2020 1:55 PM EST [id number] THINPREP PAP, IMAGED: NEGATIVE FOR SQUAMOUS INTRAEPITHELIAL [...] Recently Relevant to Health Maintenance Insurance [facility] Care Teams Dumper Relationship Specialty Start Date End Date Fam Tolbert MD [address] [place] [address] PCP - General Internal Medicine 08/24/24
--- OUTSIDE RECORDS SUMMARY | 2025-09-20 17:53 | XMS_ITS | Clinical Summary ---
Author Organization [facility] Prior to 03/11/[address] [place] [address] Care Team Providers Care Chargeback Specialist Name Role Phone Fam Tolbert MD Primary Care Provider [phone] Allergies Active Allergy Reactions Criticality Noted Date [...] Counseling 03/11/2024 03/11/2023 Influenza Vaccine (#1) 2025 Pneumococcal Vaccine (1 of 1 - PCV) 2026 RSV Adult > 60+ Yrs or Pregn [...] Group Subscriber ID Effective Dates Phone Address [facility] [id number] 2018-Present [address] [facility] [address] [place] [address] O Care Teams Chargeback Specialist Relationship Specialty Start Date End Date Fam Tolbert MD [address] [place] [address] PCP - General Internal Medicine 12/17/22
--- OUTSIDE RECORDS SUMMARY | 2025-09-20 17:53 | XMS_ITS | Clinical Summary ---
Author Organization [facility] Address [address] [place] [address] Care Team Providers Care Sandwich And Drink Cart Operator Name Role Phone Fam Tolbert MD Primary Care Provider [phone] Allergies Active Allergy Reactions Criticality Noted Date [...] Pap Smear (Ages 21-65) 1982 Mammogram 2001 RSV Vaccine 50 years and older and Patients (1 - Risk 50-74 years 1-dose series) 2011 Influenza Vaccine 05/12/2025 08/10/2024, , 06/24/2022, Additional history exists COVID-19 Vaccine ( season) 2025 09/04/2023, 11/06/2021, 05/28/2021, Additional history exists DTaP/Tdap/Td Vaccines (2 - Td or Tdap) 06/24/2033 06/24/2023 Colonoscopy 08/26/2034 08/26/2024 Hepatitis B Vaccines Aged Out No long er eligible based on patient's age to complete this topic Insurance [facility] Care Teams Sandwich And Drink Cart Operator Relationship Specialty Start Date End Date Fam Tolbert MD [address] [place] [id number] PCP - General 11/29/24
== END 2025-09-20 11:10 | disposition home or self-care (01) ==
LOC: HO.HKASLDS 11:09
PROVIDERS: PCP Internal Medicine; Visit Provider Internal Medicine Rheumatology
DX: Z79.899 Other long term (current) drug therapy (principal)
CPT/HCPCS: 36415; 82565; 84450; 84460; 85025; 85652; 86140

== ENCOUNTER 2025-09-21 09:03 | Outpatient (AMB) | payer OTHER, SELFPAY ==
--- NOTE | 2025-09-21 09:06 | MHC.OFFVIS ---
Vital Signs 09/21/25 09:09 Height 5 ft 3 in Weight 221 lb 12.56 oz BMI 39.3 BP 120/70 Blood Pressure Location Rt brachial Position Sitting Pulse 62 Pulse Source Pulse Oximeter Pulse Oximetry (%) 98 Oxygen Delivery Method Room Air Intake Visit Reasons: 3 Months Intake Note: Patient presents today for an RA follow up. Accompanied by: Self / Same As Patient Allergies apple Allergy (Verified 09/21/25 09:06) Rash codeine Allergy (Verified 09/21/25 09:06) vomitting, hives kiwi Allergy (Verified 09/21/25 09:06) Rash oxycodone Allergy (Verified 09/21/25 09:06) Vomiting Sulfa (Sulfonamide Antibiotics) Allergy (Verified 09/21/25 09:06) vomitting, hives HPI HPI 3 Months: Details: MS 1 hours She was able to taper prednisone 2.5mg daily. She was on prednisone 15mg daily the week before Nov infusion. Tapered by 2.5mg weekly. Feeling better. Less joint pain and swelling. No recent infections. [facility] Medical History Arthritis of left knee Arthritis Back pain Hx of migraines Numbness Left bundle branch block Severe obesity Rheumatoid arthritis Hyperlipidemia Anxiety Surgical History Hx of left knee surgery (~09/28/23) Hx of toe surgery H/O laparoscopic adjustable gastric banding Hx of excision of dermoid cyst Hx of cholecystectomy Hx of section H/O colonoscopy History of toe surgery Family History (Updated 09/21/25 @ 09:15 by Becki Aguilar CMA) Sister Rheumatoid arthritis Sister Graves disease Social History Household Members: Spouse and Children Housing: House Are you a primary landcare facilitator to a significant other at home: No Do you presently have visiting nurse or other home services: No Alcohol intake: current Alcohol intake frequency: holidays/special occasions only Patient Tobacco Use Status: Former Tobacco user Second Hand Smoke Exposure: No Substance Use Type: Marijuana service: No Current occupation: Teacher Physical Exam Vital Signs: Last Vital Signs Pulse 62 09/21/25 09:09 BP 120/70 09/21/25 09:09 Pulse Ox 98 09/21/25 09:09 Oxygen Delivery Method Room Air 09/21/25 09:09 BMI result Body Mass Index 39.3 Const Other: General: Comfortable CVS: RRR Respiratory: clear to auscultation bilaterally. Good respiratory effort Skin: No lesions seen MSK: Tender right 3rd MCP, 2nd and 4th PIP, left 2nd PIP. Synovitis left 2nd MCP. Tender right shoulder. Left shoulder range of motion is normal. Right shoulder abduction is 160 degrees with pain and limited full internal rotation with pain. Knee flexion is 90 degrees bilateral. No MTP tenderness. Assessment & Plan Assessment & Plan (1) Rheumatoid arthritis: Comment: Inflammatory arthritis is better controlled on Orencia. She has been able to taper prednisone to 2.5 mg daily. She has improved function. She has history of right bundle branch block and is being monitored by PCP and Cardiology with regular echocardiograms. She is high risk for if she experiences myocardial infarction or heart failure. Due to her cardiac history and cardiac risk, it is best for patient to have Orencia infusion at [facility] where she will have immediate access to emergency care if she were to experience any infusion related reaction while having the infusion. [facility] is also equipped with intensive care unit in the event if patient were to require escalation of care. It is not safe for patient to have Orencia infusion administered at home. Rheumatology history: Erosive, anti CCP antibody positive. Initial presentation in 2016 with chronic left knee swelling (WCC 11K, no crystals), which was eventually replaced (TKR). Failed hydroxychloroquine, Enbrel, Inflectra ([id number]), methotrexate ([id number]). Simponi Aria 02/2025-. History of right rotator cuff tendon tears (MRI 2016 reveals full-thickness tear of distal supraspinatus tendon, infraspinatus tendon, subdeltoid bursitis, glenohumeral effusion), failed physical therapy and cortisone injection. Patient is holding off on surgery. History of gastric band surgery. Contraindication to oral NSAIDs. Failed Simponia Aria (2 doses) and transition to SC (1 dose) requiring chronic prednisone. Orencia IV started June 2025 Code(s): M06.9 - Rheumatoid arthritis, unspecified Category: Medical Qualifiers: Rheumatoid arthritis location: multiple sites Rheumatoid factor presence: without rheumatoid factor Qualified Code(s): M06.09 - Rheumatoid arthritis without rheumatoid factor, multiple sites Plan: Continue Orencia IV infusion every 4 weeks She will discontinue prednisone on Thursday. She will call office if joint pain is uncontrolled Continue hydroxychloroquine 200 mg daily. JUL 1804/2025 ok. Labs for drug monitoring on high-risk medication are up-to-date Return to clinic in 3 months (2) Other senior care (current) drug therapy: Code(s): Z79.899 - Other terminal gauger supervisor (current) drug therapy Category: Medical Plan: See above Coding Level of Care Code Est Pt Level 4 (15202) Add On Problem Visit Only Diagnoses Rheumatoid arthritis of multiple sites with negative rheumatoid factor M06.09 Rheumatoid arthritis location: multiple sites Rheumatoid factor presence: without rheumatoid factor Other senior care (current) drug therapy Z79.899
[2025-09-21 09:09] VITALS: BP 120/70; PULSE 62; O2SAT 98; BMI 39.3
== END 2025-09-21 09:41 | disposition home or self-care (01) ==
LOC: HO.RHES 09:04
PROVIDERS: PCP Internal Medicine; Visit Provider Internal Medicine Rheumatology
DX: M06.09 Rheumatoid arthritis without rheumatoid factor, multiple sites (principal); Z79.899 Other long term (current) drug therapy
CPT/HCPCS: 99214; G2211